=== PATIENT | female | born 1935 | race Caucasian/White ===

== ENCOUNTER 2024-01-03 13:02 | Inpatient (IN) ==
[2024-01-03] MEDS: TORADOL 60 MG VIAL IM ONE (18:13)
[2024-01-03] MEDS: NORCO 7.5/325 MG TAB PO PRN (20:12)
[2024-01-03] MEDS: MOBIC TAB 15 MG PO SCH (20:12)
[2024-01-04 05:40] LABS: BASOPHILS % (AUTO) 0.4 % (0.2-1.0); EOSINOPHILS # (AUTO) 0.1 x10^3/uL (0.0-0.2); EOSINOPHILS % (AUTO) 1.1 % (0.9-2.9); HEMATOCRIT 31.5 % (36.0-47.0); HEMOGLOBIN 10.5 g/dL (12.0-16.0); LYMPHOCYTES # (AUTO) 0.5 X10^3/uL (1.3-2.9); LYMPHOCYTES % (AUTO) 6.3 % (21.0-51.0); MEAN CORPUSCULAR HEMOGLOBIN 28.3 pg (27.0-34.0); MEAN CORPUSCULAR HGB CONC 33.5 g/dL (33.0-35.0); MEAN CORPUSCULAR VOLUME 84.5 fL (80.0-100.0); MEAN PLATELET VOLUME 8.6 fL (7.4-11.0); MONOCYTES # (AUTO) 1.1 x10^3/uL (0.3-0.8); MONOCYTES % (AUTO) 13.4 % (0.0-13.0); NEUTROPHILS # (AUTO) 6.6 x10^3/uL (2.2-4.8); NEUTROPHILS % (AUTO) 78.8 % (42.0-75.0); PLATELET COUNT 136 X10^3/uL (150.0-450.0); RED BLOOD COUNT 3.72 X10^6/uL (3.5-5.4); RED CELL DISTRIBUTION WIDTH 15.9 % (11.6-16.5); WHITE BLOOD COUNT 8.4 X10^3/uL (3.6-10.0)
[2024-01-04 05:41] LABS: ALANINE AMINOTRANSFERASE 23 Units/L (12-78); ALBUMIN 2.3 g/dL (3.4-5.0); ALKALINE PHOSPHATASE 74 Units/L (46-116); ASPARTATE AMINO TRANSFERASE 28 Units/L (15-37); BLOOD UREA NITROGEN 30 mg/dL (7-18); CARBON DIOXIDE 28.5 mmol/L (21-32); CHLORIDE 107 mmol/L (98-107); COR CA(FOR HYPOALB) 10.4 mg/dL (8.5-10.1); CREATININE 1.01 mg/dL (0.55-1.02); GLUCOSE 107 mg/dL (65-99); POTASSIUM 4.4 mmol/L (3.5-5.1); SODIUM 141 mmol/L (136-145); TOTAL PROTEIN 5.8 g/dL (6.4-8.2); eGFR NON BLACK RACES 55 (>60)
[2024-01-04] MEDS: SYNTHROID 75 mcg TAB PO SCH (05:43)
[2024-01-04] MEDS: BENICAR PO SCH (08:54)
[2024-01-04] MEDS: ZyrTEC TAB 10 MG PO SCH (08:55)
[2024-01-04] MEDS: HYDROCHLOROTHIAZIDE 25 MG TAB PO SCH (08:55)
[2024-01-04] MEDS: LIPITOR TAB 10 MG PO SCH (08:55)
[2024-01-04] MEDS: TOPROL XL PO SCH (08:55)
[2024-01-04] MEDS: TOPROL XL PO ONE (12:37)
[2024-01-04] MEDS: MIACALCIN NASAL SPRAY NAS SCH (16:44)
[2024-01-05 04:58] LABS: BASOPHILS % (AUTO) 0.3 % (0.2-1.0); EOSINOPHILS # (AUTO) 0.1 x10^3/uL (0.0-0.2); EOSINOPHILS % (AUTO) 1.4 % (0.9-2.9); HEMATOCRIT 33.1 % (36.0-47.0); LYMPHOCYTES # (AUTO) 0.5 X10^3/uL (1.3-2.9); LYMPHOCYTES % (AUTO) 7.1 % (21.0-51.0); MEAN CORPUSCULAR HEMOGLOBIN 28.4 pg (27.0-34.0); MEAN CORPUSCULAR HGB CONC 33.4 g/dL (33.0-35.0); MEAN PLATELET VOLUME 8.1 fL (7.4-11.0); MONOCYTES % (AUTO) 12.8 % (0.0-13.0); NEUTROPHILS # (AUTO) 5.9 x10^3/uL (2.2-4.8); NEUTROPHILS % (AUTO) 78.4 % (42.0-75.0); PLATELET COUNT 146 X10^3/uL (150.0-450.0); RED BLOOD COUNT 3.89 X10^6/uL (3.5-5.4); RED CELL DISTRIBUTION WIDTH 15.7 % (11.6-16.5); WHITE BLOOD COUNT 7.6 X10^3/uL (3.6-10.0)
[2024-01-05 05:08] LABS: ALANINE AMINOTRANSFERASE 31 Units/L (12-78); ALBUMIN 2.5 g/dL (3.4-5.0); ALKALINE PHOSPHATASE 75 Units/L (46-116); ASPARTATE AMINO TRANSFERASE 31 Units/L (15-37); BLOOD UREA NITROGEN 25 mg/dL (7-18); CALCIUM 8.9 mg/dL (8.5-10.1); CARBON DIOXIDE 30.9 mmol/L (21-32); CHLORIDE 104 mmol/L (98-107); COR CA(FOR HYPOALB) 10.1 mg/dL (8.5-10.1); GLUCOSE 108 mg/dL (65-99); POTASSIUM 3.8 mmol/L (3.5-5.1); SODIUM 141 mmol/L (136-145); TOTAL PROTEIN 6.3 g/dL (6.4-8.2); eGFR NON BLACK RACES > 60 (>60)
[2024-01-05] MEDS ORDERED: CONSULT PHARMACY - POTASSIUM & MAGNESIUM XX SCH (06:00)
[2024-01-05] MEDS: K-DUR TAB 20 MEQ PO SCH (09:13)
[2024-01-05] MEDS: TOPROL XL PO SCH (09:14)
[2024-01-05] MEDS: MAG-OX TAB PO SCH (09:14)
[2024-01-05] MEDS: COLACE CAP 100 MG PO SCH (10:59)
[2024-01-05] MEDS: LINZESS PO ONE (12:41)
[2024-01-05] MEDS: COLACE CAP 100 MG PO ONE (12:41)
[2024-01-05 18:32] VITALS: BMI 22.6
[2024-01-06 05:54] LABS: BASOPHILS # (AUTO) 0.1 X10^3/uL (0.0-0.1); BASOPHILS % (AUTO) 0.8 % (0.2-1.0); EOSINOPHILS # (AUTO) 0.1 x10^3/uL (0.0-0.2); HEMOGLOBIN 9.7 g/dL (12.0-16.0); LYMPHOCYTES # (AUTO) 0.8 X10^3/uL (1.3-2.9); LYMPHOCYTES % (AUTO) 11.7 % (21.0-51.0); MEAN CORPUSCULAR HEMOGLOBIN 28.4 pg (27.0-34.0); MEAN CORPUSCULAR HGB CONC 33.5 g/dL (33.0-35.0); MEAN CORPUSCULAR VOLUME 84.9 fL (80.0-100.0); MEAN PLATELET VOLUME 8.2 fL (7.4-11.0); MONOCYTES # (AUTO) 0.9 x10^3/uL (0.3-0.8); MONOCYTES % (AUTO) 13.2 % (0.0-13.0); NEUTROPHILS % (AUTO) 72.3 % (42.0-75.0); PLATELET COUNT 139 X10^3/uL (150.0-450.0); RED BLOOD COUNT 3.42 X10^6/uL (3.5-5.4); RED CELL DISTRIBUTION WIDTH 15.5 % (11.6-16.5)
[2024-01-06 06:10] LABS: ALANINE AMINOTRANSFERASE 23 Units/L (12-78); ALBUMIN 2.1 g/dL (3.4-5.0); ALKALINE PHOSPHATASE 65 Units/L (46-116); ASPARTATE AMINO TRANSFERASE 29 Units/L (15-37); BLOOD UREA NITROGEN 28 mg/dL (7-18); CALCIUM 8.3 mg/dL (8.5-10.1); CHLORIDE 106 mmol/L (98-107); COR CA(FOR HYPOALB) 9.8 mg/dL (8.5-10.1); CREATININE 0.84 mg/dL (0.55-1.02); GLUCOSE 102 mg/dL (65-99); MAGNESIUM 2.3 mg/dL (2.0-2.9); POTASSIUM 4.4 mmol/L (3.5-5.1); SODIUM 141 mmol/L (136-145); TOTAL PROTEIN 5.6 g/dL (6.4-8.2); eGFR NON BLACK RACES > 60 (>60)
[2024-01-06 08:28] VITALS: BP 146/67; PULSE 80; TEMP 97.4; O2SAT 92
[2024-01-06] MEDS: MIRALAX POWDER (1 DOSE 17 G) PO ONE (09:02)
[2024-01-06] MEDS ORDERED: MIRALAX POWDER (1 DOSE 17 G) PO SCH (10:00)
[2024-01-06] MEDS ORDERED: LOVENOX INJ 40 MG SYR SC SCH (10:00)
[2024-01-06 18:18] VITALS: RESP 17
== END 2024-01-06 09:59 | disposition swing bed (61) | DRG 566 ==
LOC: MED/SURG 16:34
PROVIDERS: ADMIT Obstetrics & Gynecology Obstetrics; ATTEND Obstetrics & Gynecology Obstetrics

== ENCOUNTER 2024-01-06 10:00 | Inpatient (IN) ==
--- NOTE | 2024-01-06 15:59 | PT/OTEVAL ---
PT/OT OBJECTIVES - HISTORY Prescription: OT Consult Diagnosis: Swingbed compression fx, weakness Precautions: Fall risk, Pain PMH: Arthritis, Hypertension, Hypothyroidism and Kidney Stones Prior Level of Function: Independent Other: Per pt report, with family present, She lives with her grandson in a 1 story home. She has 2 steps into the home without a handrail. (I) with ADLs and IADLs. DME includes a RW and a BSC. History of Present Illness: Per documentation, Pt is a 88 year old female who was walking towards door and hit her head on the edge of the door just TRAVEL ATTENDANTS. Family states that she tripped and fell forward and hit her head on the edge of the door. She sustained a laceration to the frontal region of her head. CT showed T2-T4 compression fx 10% T-2-3 and 50% T4. Pt c/o severe pain between shoulder blades and when breathing. Family requested for her to be transferred to [facility] in [place]. Pt is now back here at [facility] for swingbed program. She would greatly benefit from skilled OT to imrpove (I) and safety needed for safe d/c planning. - COGNITION Mental Status: Alert, Oriented, Name, Place, Purpose Communication Status: Verbal Ability to Follow Directions: 2 Step Memory Loss: None Affect: Calm - PAIN Back Pain Scale: Moderate - TRANSFERS Sit to Stand: Minimal Sit to Stand Comment: VC for safety and hand placement. Sit or Stand Pivot: Supervision, Minimal Sit or Stand Pivot Comment: Touch A for safety Toileting: Minimal Safety (requires cues for:): Hand Placement Precaution - ADL'S Grooming: Supervision Toileting: Minimum - BALANCE Dynamic Sitting: Good Standing: Poor Balance Comment: Needs UE support Static Sitting: Good Standing: Fair - NEUROMOTOR/SENSATION Saeid. Upper Ext Sensation: WFL Coordination: WFL - HAND DOMINANCE Extremity Function: Hand Dominance: Right - ROM Bilateral UE ROM: WFL - STRENGTH Bilateral UE Strength Number: 3 - GAIT Pt. ambulates how many feet?: 200 Amount of assistance required: Minimal Amount of Assistance Required: Minimal Type of Assistive Device: Rolling Walker - TREATMENT Date: 01/06/24 Time: 12:20 Treatment Type: Evaluation Treatment Provided: Therapeutic Activities, Other - TOTAL TREATMENT TIME Total Time: 95 - POST ASSESSMENT Post Assessment Comment: Pt was seen for skilled OT to assess CLOF. PLOF was given by pt and family member. First attempt to see pt she was very groggy from pain meds. When therapist came back, pt was up in recliner with feet elevated. Pt agreeable to participate with skilled OT. Pt used a RW and functionally AMB ~ 200 feet with several standing rest breaks. Pt given seated Rb after AMB. Pt the functionally AMB to restroom and used commode with min A. Pt AMB back to recliner. Agreed to stand up and brush her teeth. Pt given touch A for activity. Pt fatigues easily and has pain in her back which is limiting her ability to perform activities. Pt would benefit from skilled OT to improve (I) and safety needed for ADL self care skills. - EXIT DISPOSITION Exit Position: CHAIR Call light in reach: Yes PT/OT ASSESSMENT - PT Problem List: Other - OT Problem List: Decreased Mobility ADL's, Decreased Safety Aware, Decreased Dressing, Decreased Bathing, Decreased Grooming, Decreased UE Strength - OT GOALS Collision Technician Goals Days: 20 Mobility for ADL's: Pt to functionally AMB to restroom with LRAD and set up A. Safety Awareness: Pt to improve safety with back precautions to G Dressing: Pt to improve LB dressing to set up A Bathing: Pt to improve bathing to set up A Grooming: Pt to improve grooming to (I) Upper Ext. Strength/Use: Pt to improve BUE MMT to 5/5 Other: Pt to improve (I) with simple IADL tasks to set up A ie, bed making, dishes Short Term Goals Days: 5 Mobility for ADL's: Pt to functionally AMB to restroom with LRAD and supv A. Safety Awareness: Pt to improve safety with hand placement for functional transfers to G Dressing: Pt to improve UB dressing to (I) Bathing: Pt to improve bathing to supv A Grooming: - Upper Ext. Strength/Use: Pt to improve BUE MMT to 4/5 - PATIENT GOALS Patient/Family Goals: To go home Goals Discussed with Patient/Family: Yes Rehabilitation Potential: Good to meet stated goals Justification for Potential: To facilitate highest level of ADL function needed for safe d/c planning. Weakness and Barriers: Pain - PLAN Suggested Treatment Plan: Therapeutic Activity, Self Care Training, Neuro Re- education, Therapeutic Ex with HEP, Home Management, Patient Education - FREQUENCY AND DURATION PT: - OT: 5x a week x 20 days Expected Continuation of Care at Discharge: Home, Home Health
--- NOTE | 2024-01-06 16:52 | PT/OTEVAL ---
PT/OT OBJECTIVES - HISTORY Prescription: PT Consult Diagnosis: T2-T4 Compression Fractures, Facial Lacerations, Fall Precautions: Back/Spinal, Fall PMH: Arthritis, Hypertension, Hypothyroidism, Kidney Stones, Hysterectomy Prior Level of Function: Independent Other: Per patient report & confirmed by family. Pt resides at home in single story home with 2 steps to enter (no handrail) and has a grandson who stays with her but not consistently. PLOF: Independent within home and community with SPC/walking stick as needed. DME: PAOLO SOTO History of Present Illness: Ms. Núñez is an 88 year old female who sustained a fall at home on 01/02/2024 and had facial and scalp lacerations and T2-T4 compression fractures (10% at T2 and T3 and 50% at T4) and due to complexity of injury was Air Evac to [facility] in [place]. Pt was treated in the ER and then sent back to [facility] for further management of intractable back pain. Pt was stabilized medically and transitioned to swing bed admission on 01/06/2024. - COGNITION Mental Status: Alert, Oriented, Name, Date, Place, Purpose Communication Status: Verbal Ability to Follow Directions: 2 Step Affect: Calm - PAIN Back Pain Scale: Mild Comments: "It's not so bad after taking my medicine" - BED MOBILITY Rolling: Minimal - TRANSFERS Supine to Sit: Minimal Sit to Stand: Minimal Sit or Stand Pivot: Minimal Safety (requires cues for:): Hand Placement Precaution - BALANCE Dynamic Sitting: Good Standing: Poor Static Sitting: Good Standing: Fair - NEUROMOTOR/SENSATION Saeid. Lower Ext Sensation: WFL Coordination: WFL Proprioception: WFL - HAND DOMINANCE Extremity Function: Hand Dominance: Right - ROM Bilateral LE ROM: WFL Muscle Tone: WFL - STRENGTH Bilateral LE Strength Number: 3 Other comment: B Proximal Hips: 3/5; B Knees and Ankles: 3+/5 - GAIT Pt. ambulates how many feet?: 150 Amount of Assistance Required: Minimal Type of Assistive Device: Rolling Walker Comments: Frequent standing therapeutic rest breaks - TREATMENT Date: 01/06/24 Time: 14:00 Treatment Type: Evaluation Treatment Provided: Gait - TOTAL TREATMENT TIME Total Time: 75 - POST ASSESSMENT Post Assessment Comment: PT initially attempted to see patient in the AM for evaluation- however, after taking pain medication pt was very lethargic & unable to fully participate. PT returned later and pt noted to be alert & agreeable to participation in PT services. Pt able to provide history & PLOF information. Reports that she is feeling better. Review of spinal precautions with pt due to acute thoracic compression fractures. Pt required min assist for bed mobility tasks and functional transfers with cues for proper hand placement and facilitation of COM over SHIRAZ. Gait tasks performed indoors on even surfaces with FWW with cues for maintaining close walker approximation and increased step length and step height. Pt did require frequent standing rest breaks and reports she was able to feel some discomfort to upper back but pain is much more controlled that previously. Pt is motivated to participate and would benefit f rom continued PT Services to address remaining deficits and facilitate highest level of function & safe discharge planning. - EXIT DISPOSITION Exit Position: CHAIR Call light in reach: Yes Comments: With OT PT/OT ASSESSMENT - PT Problem List: Decreased Bed Mobility, Decreased Transfers, Decreased Gait, Decreased Balance, Decreased LE Strength, Other - PT GOALS Short Term Goals Days: 10 Mobility: Pt will perform bed mobility tasks with mod I Transfers: Pt will perform functional transfers with mod I Gait: Pt will ambulate 400ft with FWW with supervision Balance: Pt will increase static standing balance to good Custodial Goals Days: 20 Mobility: - Transfers: - Gait: Pt will ambulate 500ft with LRAD with mod I Balance: Pt will increase dynamic standing balance to good ROM/Strength: Pt will increase BLE strength to 5/5 Others: Pt will ascend/descend 2 stairs with mod I - OT GOALS Hospice Registered Nurse Goals Days: 20 Mobility for ADL's: Pt to functionally AMB to restroom with LRAD and set up A. Safety Awareness: Pt to improve safety with back precautions to G Dressing: Pt to improve LB dressing to set up A Bathing: Pt to improve bathing to set up A Grooming: Pt to improve grooming to (I) Upper Ext. Strength/Use: Pt to improve BUE MMT to 5/5 Other: Pt to improve (I) with simple IADL tasks to set up A ie, bed making, dishes Short Term Goals Days: 5 Mobility for ADL's: Pt to functionally AMB to restroom with LRAD and supv A. Safety Awareness: Pt to improve safety with hand placement for functional transfers to G Dressing: Pt to improve UB dressing to (I) Bathing: Pt to improve bathing to supv A Grooming: - Upper Ext. Strength/Use: Pt to improve BUE MMT to 4/5 - PATIENT GOALS Patient/Family Goals: "I want to get better so I can go back home" Goals Discussed with Patient/Family: Yes Rehabilitation Potential: Good to meet stated goals Justification for Potential: Facilitate highest level of function and safe discharge planning Weakness and Barriers: Pain - PLAN Suggested Treatment Plan: Bed Mobility Training, Therapeutic Activity, Gait Training, Neuro Re-education, Therapeutic Ex with HEP, Patient Education, Other Other comment: Manual Therapy - FREQUENCY AND DURATION PT: 5-6x per week x 20 days Expected Continuation of Care at Discharge: Outpatient Therapy, Home Health, Determined on Progress
[2024-01-06] MEDS: NORCO 7.5/325 MG TAB PO PRN (20:29)
[2024-01-06] MEDS: COLACE CAP 100 MG PO SCH (20:29)
[2024-01-06] MEDS: MOBIC TAB 15 MG PO SCH (20:29)
[2024-01-07] MEDS: SYNTHROID 75 mcg TAB PO SCH (05:38)
[2024-01-07] MEDS: TOPROL XL PO SCH (08:42)
[2024-01-07] MEDS: HYDROCHLOROTHIAZIDE 25 MG TAB PO SCH (08:42)
[2024-01-07] MEDS: ZyrTEC TAB 10 MG PO SCH (08:42)
[2024-01-07] MEDS: BENICAR PO SCH (08:42)
[2024-01-07] MEDS: LOVENOX INJ 40 MG SYR SC SCH (08:43)
[2024-01-07] MEDS: MIACALCIN NASAL SPRAY NAS SCH (08:43)
[2024-01-07] MEDS: MIRALAX POWDER (1 DOSE 17 G) PO SCH (08:43)
[2024-01-07 15:25] VITALS: BMI 22.6
[2024-01-08 05:35] LABS: LYMPHOCYTES # (AUTO) 0.8 X10^3/uL (1.3-2.9); MONOCYTES # (AUTO) 0.8 x10^3/uL (0.3-0.8)
[2024-01-08 05:42] LABS: BASOPHILS % (AUTO) 0.8 % (0.2-1.0); EOSINOPHILS # (AUTO) 0.1 x10^3/uL (0.0-0.2); EOSINOPHILS % (AUTO) 2.5 % (0.9-2.9); HEMATOCRIT 30.1 % (36.0-47.0); LYMPHOCYTES % (AUTO) 13.2 % (21.0-51.0); MEAN CORPUSCULAR HEMOGLOBIN 28.3 pg (27.0-34.0); MEAN CORPUSCULAR HGB CONC 33.4 g/dL (33.0-35.0); MEAN CORPUSCULAR VOLUME 84.8 fL (80.0-100.0); MEAN PLATELET VOLUME 8.1 fL (7.4-11.0); MONOCYTES % (AUTO) 13.1 % (0.0-13.0); NEUTROPHILS # (AUTO) 4.1 x10^3/uL (2.2-4.8); NEUTROPHILS % (AUTO) 70.4 % (42.0-75.0); PLATELET COUNT 145 X10^3/uL (150.0-450.0); RED BLOOD COUNT 3.55 X10^6/uL (3.5-5.4); RED CELL DISTRIBUTION WIDTH 15.5 % (11.6-16.5); WHITE BLOOD COUNT 5.8 X10^3/uL (3.6-10.0)
[2024-01-08 05:45] LABS: ALANINE AMINOTRANSFERASE 18 Units/L (12-78); ALBUMIN 2.2 g/dL (3.4-5.0); ALKALINE PHOSPHATASE 71 Units/L (46-116); ASPARTATE AMINO TRANSFERASE 17 Units/L (15-37); BLOOD UREA NITROGEN 31 mg/dL (7-18); CALCIUM 8.7 mg/dL (8.5-10.1); CARBON DIOXIDE 28.7 mmol/L (21-32); CHLORIDE 105 mmol/L (98-107); COR CA(FOR HYPOALB) 10.1 mg/dL (8.5-10.1); CREATININE 0.94 mg/dL (0.55-1.02); GLUCOSE 95 mg/dL (65-99); POTASSIUM 4.3 mmol/L (3.5-5.1); SODIUM 139 mmol/L (136-145); TOTAL PROTEIN 5.8 g/dL (6.4-8.2); eGFR NON BLACK RACES 60 (>60)
[2024-01-08] MEDS: LINZESS PO SCH (11:17)
[2024-01-09] MEDS: TORADOL 30 MG VIAL IVP PRN (10:37)
[2024-01-10] MEDS ORDERED: PHENERGAN SYRUP PLAIN 6.25MG/5ML PO PRN (09:06)
[2024-01-10] MEDS: RHINOCORT ALLERGY NASAL SPRAY ENOSTRIL SCH (10:00)
[2024-01-11 05:26] LABS: BASOPHILS % (AUTO) 0.4 % (0.2-1.0); EOSINOPHILS # (AUTO) 0.1 x10^3/uL (0.0-0.2); EOSINOPHILS % (AUTO) 2.3 % (0.9-2.9); HEMATOCRIT 30.1 % (36.0-47.0); HEMOGLOBIN 10.1 g/dL (12.0-16.0); LYMPHOCYTES % (AUTO) 16.8 % (21.0-51.0); MEAN CORPUSCULAR HEMOGLOBIN 28.2 pg (27.0-34.0); MEAN CORPUSCULAR HGB CONC 33.4 g/dL (33.0-35.0); MEAN CORPUSCULAR VOLUME 84.4 fL (80.0-100.0); MONOCYTES # (AUTO) 0.8 x10^3/uL (0.3-0.8); MONOCYTES % (AUTO) 13.2 % (0.0-13.0); NEUTROPHILS # (AUTO) 3.9 x10^3/uL (2.2-4.8); NEUTROPHILS % (AUTO) 67.3 % (42.0-75.0); PLATELET COUNT 175 X10^3/uL (150.0-450.0); RED BLOOD COUNT 3.57 X10^6/uL (3.5-5.4); RED CELL DISTRIBUTION WIDTH 15.8 % (11.6-16.5); WHITE BLOOD COUNT 5.8 X10^3/uL (3.6-10.0)
[2024-01-11 05:44] LABS: ALANINE AMINOTRANSFERASE 17 Units/L (12-78); ALBUMIN 2.2 g/dL (3.4-5.0); ALKALINE PHOSPHATASE 85 Units/L (46-116); ASPARTATE AMINO TRANSFERASE 17 Units/L (15-37); BLOOD UREA NITROGEN 33 mg/dL (7-18); CALCIUM 8.7 mg/dL (8.5-10.1); CARBON DIOXIDE 27.6 mmol/L (21-32); CHLORIDE 105 mmol/L (98-107); COR CA(FOR HYPOALB) 10.1 mg/dL (8.5-10.1); CREATININE 0.93 mg/dL (0.55-1.02); GLUCOSE 87 mg/dL (65-99); POTASSIUM 4.1 mmol/L (3.5-5.1); SODIUM 140 mmol/L (136-145); TOTAL PROTEIN 5.8 g/dL (6.4-8.2); eGFR NON BLACK RACES > 60 (>60)
[2024-01-12] MEDS: RESTORIL CAP 15 MG PO PRN (20:28)
[2024-01-13 05:01] LABS: BASOPHILS % (AUTO) 0.8 % (0.2-1.0); EOSINOPHILS # (AUTO) 0.2 x10^3/uL (0.0-0.2); EOSINOPHILS % (AUTO) 2.9 % (0.9-2.9); HEMATOCRIT 30.6 % (36.0-47.0); HEMOGLOBIN 10.3 g/dL (12.0-16.0); LYMPHOCYTES # (AUTO) 1.1 X10^3/uL (1.3-2.9); LYMPHOCYTES % (AUTO) 19.4 % (21.0-51.0); MEAN CORPUSCULAR HEMOGLOBIN 28.3 pg (27.0-34.0); MEAN CORPUSCULAR HGB CONC 33.5 g/dL (33.0-35.0); MEAN CORPUSCULAR VOLUME 84.3 fL (80.0-100.0); MEAN PLATELET VOLUME 7.7 fL (7.4-11.0); MONOCYTES # (AUTO) 0.7 x10^3/uL (0.3-0.8); MONOCYTES % (AUTO) 13.6 % (0.0-13.0); NEUTROPHILS # (AUTO) 3.5 x10^3/uL (2.2-4.8); NEUTROPHILS % (AUTO) 63.3 % (42.0-75.0); PLATELET COUNT 212 X10^3/uL (150.0-450.0); RED BLOOD COUNT 3.64 X10^6/uL (3.5-5.4); RED CELL DISTRIBUTION WIDTH 15.7 % (11.6-16.5); WHITE BLOOD COUNT 5.5 X10^3/uL (3.6-10.0)
[2024-01-13 05:12] LABS: ALANINE AMINOTRANSFERASE 16 Units/L (12-78); ALBUMIN 2.2 g/dL (3.4-5.0); ALKALINE PHOSPHATASE 101 Units/L (46-116); ASPARTATE AMINO TRANSFERASE 17 Units/L (15-37); BLOOD UREA NITROGEN 27 mg/dL (7-18); CALCIUM 8.7 mg/dL (8.5-10.1); CARBON DIOXIDE 26.2 mmol/L (21-32); CHLORIDE 105 mmol/L (98-107); COR CA(FOR HYPOALB) 10.1 mg/dL (8.5-10.1); CREATININE 0.97 mg/dL (0.55-1.02); GLUCOSE 88 mg/dL (65-99); POTASSIUM 3.8 mmol/L (3.5-5.1); SODIUM 140 mmol/L (136-145); TOTAL PROTEIN 5.8 g/dL (6.4-8.2); eGFR NON BLACK RACES 58 (>60)
[2024-01-15 06:19] LABS: ALANINE AMINOTRANSFERASE 16 Units/L (12-78); ALBUMIN 2.3 g/dL (3.4-5.0); ALKALINE PHOSPHATASE 120 Units/L (46-116); ASPARTATE AMINO TRANSFERASE 18 Units/L (15-37); BLOOD UREA NITROGEN 32 mg/dL (7-18); CALCIUM 8.5 mg/dL (8.5-10.1); CARBON DIOXIDE 25.5 mmol/L (21-32); CHLORIDE 105 mmol/L (98-107); COR CA(FOR HYPOALB) 9.9 mg/dL (8.5-10.1); CREATININE 1.04 mg/dL (0.55-1.02); GLUCOSE 91 mg/dL (65-99); MAGNESIUM 1.7 mg/dL (2.0-2.9); POTASSIUM 3.7 mmol/L (3.5-5.1); SODIUM 138 mmol/L (136-145); TOTAL PROTEIN 5.8 g/dL (6.4-8.2); eGFR NON BLACK RACES 53 (>60)
[2024-01-15 06:28] LABS: BASOPHILS % (AUTO) 0.6 % (0.2-1.0); EOSINOPHILS # (AUTO) 0.1 x10^3/uL (0.0-0.2); HEMATOCRIT 29.6 % (36.0-47.0); HEMOGLOBIN 9.9 g/dL (12.0-16.0); LYMPHOCYTES # (AUTO) 1.5 X10^3/uL (1.3-2.9); LYMPHOCYTES % (AUTO) 25.2 % (21.0-51.0); MEAN CORPUSCULAR HEMOGLOBIN 28.5 pg (27.0-34.0); MEAN CORPUSCULAR HGB CONC 33.6 g/dL (33.0-35.0); MEAN CORPUSCULAR VOLUME 84.7 fL (80.0-100.0); MONOCYTES # (AUTO) 0.8 x10^3/uL (0.3-0.8); NEUTROPHILS # (AUTO) 3.4 x10^3/uL (2.2-4.8); NEUTROPHILS % (AUTO) 59.2 % (42.0-75.0); PLATELET COUNT 219 X10^3/uL (150.0-450.0); RED BLOOD COUNT 3.49 X10^6/uL (3.5-5.4); RED CELL DISTRIBUTION WIDTH 15.3 % (11.6-16.5); WHITE BLOOD COUNT 5.8 X10^3/uL (3.6-10.0)
[2024-01-15] MEDS ORDERED: CONSULT PHARMACY - POTASSIUM & MAGNESIUM XX SCH (07:00)
[2024-01-15] MEDS: K-DUR TAB 20 MEQ PO SCH (09:13)
[2024-01-15] MEDS: MAG-OX TAB PO SCH (09:14)
[2024-01-15] MEDS: LINZESS PO SCH (09:14)
[2024-01-17] MEDS ORDERED: CONSULT PHARMACY - POTASSIUM & MAGNESIUM XX SCH (08:00)
[2024-01-17 08:22] VITALS: BP 139/65; PULSE 66; RESP 18; TEMP 97.6; O2SAT 94
== END 2024-01-17 15:55 | disposition home health service (06) | DRG 566 ==
LOC: MED/SURG 10:00
PROVIDERS: ADMIT Obstetrics & Gynecology Obstetrics; ATTEND Obstetrics & Gynecology Obstetrics
DX: Z47.89 Encounter for other orthopedic aftercare; W18.39XA Other fall on same level, initial encounter; R53.1 Weakness; M54.89 Other dorsalgia; S22.9XXA Fracture of bony thorax, part unspecified, initial encounter for closed fracture

== ENCOUNTER 2024-04-02 17:26 | Inpatient (IN) ==
--- NOTE | 2024-04-02 17:44 | DR.EXTPAIN ---
HPI <Alessio Cardenas Last Filed: 04/07/24 08:04> Time seen Time Seen by Provider: 04/02/24 17:44 Complaint/Symptoms Chief Complaint Doctor Comments: 88-year-old female brought in for evaluation. Patient had a significant fall 3 months ago, had compression fractures of the edwin mbar spine. Per family has not been quite right since. She was visiting family, family member found her on the floor this morning at 4:30 AM. She had fallen, hit the back of her head. Patient has persistent headache at the back of her head, with a small swollen area/hematoma. No report of nausea, vomiting, visual changes. She denies neck pain. She has ambulated since the fall. Having some left-sided sciatica pain. Per family patient has been a bit more agitated and confused today. No report of fever, chills, URI symptoms, bowel or bladder issues. Family discussed with her covering provider, Ms. Rebolledo, feel that she may be well served with a shelter admission. Nurses notes reviewed Nurses Notes Review: Yes Source History Provided: Patient and Family Member PMH <Alessio Cardenas Last Filed: 04/07/24 08:04> PMH Past Medical History: Arthritis, Hypertension, Hypothyroidism and Kidney Stones Past Surgical History: Yes Surgical History: ORACLE APPLICATION ARCHITECT Surgery and Other Family History Family Medical History: Hypertension Social History Does patient currently use any type of tobacco product: No Alcohol Use: None Do you use any recreational Drugs:: No ROS <Alessio Cardenas Last Filed: 04/07/24 08:04> Review of Systems Constitutional: Weakness Eyes: No Symptoms Reported ENTM: No Symptoms Reported Respiratoy: No Symptoms Reported Cardiovascular: No Symptoms Reported Gastrointestinal/Abdominal: No Symptoms Reported Genitourinary: No Symptoms Reported Neurological: Headache and Weakness Musculoskeletal: Back Pain Integumentary: No Symptoms Reported Hematologic/Lymphatic: No Symptoms Reported All Other Systems: Reviewed and Negative PE <Alessio Cardenas Filed: 04/07/24 08:04> Vital Signs Vitals: Vital Signs Temperature 98.2 F Pulse Rate [Left] 75 Pulse Rate 78 Pulse Rate 70 Pulse Rate 71 Pulse Rate 73 Pulse Rate 74 Pulse Rate 70 Pulse Rate 72 Pulse Rate 73 Pulse Rate 72 Pulse Rate 69 Pulse Rate 74 Pulse Rate 74 Pulse Rate 78 Respiratory Rate 15 Respiratory Rate 12 Blood Pressure 184/74 Blood Pressure 167/70 Blood Pressure 140/64 Blood Pressure 141/62 Blood Pressure 133/60 Blood Pressure 141/65 O2 Sat by Pulse Oximetry 98 O2 Sat by Pulse Oximetry 99 O2 Sat by Pulse Oximetry 98 O2 Sat by Pulse Oximetry 98 O2 Sat by Pulse Oximetry 99 O2 Sat by Pulse Oximetry 99 O2 Sat by Pulse Oximetry 100 O2 Sat by Pulse Oximetry 97 O2 Sat by Pulse Oximetry 97 O2 Sat by Pulse Oximetry 97 O2 Sat by Pulse Oximetry 96 O2 Sat by Pulse Oximetry 99 O2 Sat by Pulse Oximetry 97 O2 Sat by Pulse Oximetry 97 General General Appearance: Alert and In No Apparent Distress Head Head Exam: Other (+ small occipital hematoma, with tenderness. No bleeding.) Eyes Eye exam: PERRL and EOMI ENT ENT Exam: Normal Oropharynx and Mucous Membranes Moist Neck Neck Exam: Normal Inspection Chest Chest Inspection: Normal Inspection Respiratory Respiratory Exam: Normal Lung Sounds Bilat; negative Accessory Muscle Use or Respiratory Distress Cardiovascular Cardiovascular Exam: Regular Rate, Normal Rhythm and Normal Heart Sounds Abdominal Exam Abdominal Exam: Normal Bowel Sounds and Soft; negative Tenderness Extremities Extremities Exam: Normal Inspection and Edema (1-2+, bilateral lower exts) Lower Extremities Hip/Pelvis Exam: Tenderness (L pelvis illiac creast) Back Back Exam: Normal Inspection Neurological Neurological Exam: Alert, Oriented X3 and CN II-XII Intact; negative Motor Sensory Deficit Skin Skin Exam: Warm and Dry <Keysha Wilkinson - Last Filed: 04/02/24 21:17> Vital Signs Vitals: Vital Signs Temperature 98.2 F Pulse Rate [Left] 75 Pulse Rate 78 Pulse Rate 70 Pulse Rate 71 Pulse Rate 73 Pulse Rate 74 Pulse Rate 70 Pulse Rate 72 Pulse Rate 73 Pulse Rate 72 Pulse Rate 69 Pulse Rate 74 Pulse Rate 74 Pulse Rate 78 Respiratory Rate 15 Respiratory Rate 12 Blood Pressure 184/74 Blood Pressure 167/70 Blood Pressure 140/64 Blood Pressure 141/62 Blood Pressure 133/60 Blood Pressure 141/65 O2 Sat by Pulse Oximetry 98 O2 Sat by Pulse Oximetry 99 O2 Sat by Pulse Oximetry 98 O2 Sat by Pulse Oximetry 98 O2 Sat by Pulse Oximetry 99 O2 Sat by Pulse Oximetry 99 O2 Sat by Pulse Oximetry 100 O2 Sat by Pulse Oximetry 97 O2 Sat by Pulse Oximetry 97 O2 Sat by Pulse Oximetry 97 O2 Sat by Pulse Oximetry 96 O2 Sat by Pulse Oximetry 99 O2 Sat by Pulse Oximetry 97 O2 Sat by Pulse Oximetry 97 Respiratory Respiratory Exam: Bilateral: Clear to Auscultation <Keysha Wilkinson - Last Filed: 04/02/24 21:17> Differential Diagnosis Differential Diagnosis: Fracture and Other (Blunt Head trauma,C-spine I njury,Pneumonia,UTI,electrolyte disorder) COURSE <Alessio Cardenas - Last Filed: 04/07/24 08:04> Treatment Treatment: 88-year-old female, fell early this a.m. Has been a little off, little confused since, hit the back of her head. Has a hematoma. Will CT the head, neck and x-ray her chest and pelvis/left hip. Patient given IV fluids, will check baseline labs. 184 -imaging studies unremarkable to me. <Keysha Wilkinson - Last Filed: 04/02/24 21:17> Treatment Treatment: 88-year-old female, fell early this a.m. Has been a little off, little confused since, hit the back of her head. Has a hematoma. Will CT the head, neck and x-ray her chest and pelvis/left hip. Patient given IV fluids, will check baseline labs. 184 -imaging studies unremarkable to me. Patient's Head CT w/o contrast and Cervical spine Ct did not reveal an acute process. CXR and Left hip xray did not reveal acute process. Patient labs revealed: K 3.2,Bun 31, creat 1.53,cbc stable.Patient received NS bolus and Rocephin 1 gram iv in the ED. 20:[address] Bach.Dr Bach has accepted the patient to his service for further evaluation. ROR <Alessio Cardenas - Last Filed: 04/07/24 08:04> Labs Reviewed 04/07/24 04:53 04/07/24 04:53 Laboratory: 04/02/24 18:55 Urine,Clean Catch Urine Culture - Final WBC 5.7 X10^3/uL (3.6-10.0) 04/04/24 04:11 RBC 3.63 X10^6/uL (3.5-5.4) 04/04/24 04:11 Hgb 10.3 g/dL (12.0-16.0) L 04/04/24 04:11 Hct 30.8 % (36.0-47.0) L 04/04/24 04:11 MCV 84.7 fL (80.0-100.0) 04/04/24 04:11 MCH 28.3 pg (27.0-34.0) 04/04/24 04:11 MCHC 33.4 g/dL (33.0-35.0) 04/04/24 04:11 RDW 14.5 % (11.6-16.5) 04/04/24 04:11 Plt Count 150 X10^3/uL (150.0-450.0) 04/04/24 04:11 MPV 8.9 fL (7.4-11.0) 04/04/24 04:11 Neut % (Auto) 57.4 % (42.0-75.0) 04/04/24 04:11 Lymph % (Auto) 27.2 % (21.0-51.0) 04/04/24 04:11 Preble % (Auto) 11.8 % (0.0-13.0) 04/04/24 04:11 Eos % (Auto) 2.8 % (0.9-2.9) 04/04/24 04:11 Baso % (Auto) 0.8 % (0.2-1.0) 04/04/24 04:11 Neut # (Auto) 3.3 x10^3/uL (2.2-4.8) 04/04/24 04:11 Lymph # (Auto) 1.6 X10^3/uL (1.3-2.9) 04/04/24 04:11 Preble # (Auto) 0.7 x10^3/uL (0.3-0.8) 04/04/24 04:11 Eos # (Auto) 0.2 x10^3/uL (0.0-0.2) 04/04/24 04:11 Baso # (Auto) 0.0 X10^3/uL (0.0-0.1) 04/04/24 04:11 Absolute Nucleated RBC 0.1 /100WBC 04/04/24 04:11 Sodium 143 mmol/L (136-145) 04/04/24 04:11 Corrected Sodium TNP 04/04/24 04:11 Potassium 3.9 mmol/L (3.5-5.1) 04/04/24 04:11 Chloride 111 mmol/L (98-107) H 04/04/24 04:11 Carbon Dioxide 24.7 mmol/L (21-32) 04/04/24 04:11 BUN 25 mg/dL (7-18) H 04/04/24 04:11 Creatinine 1.08 mg/dL (0.55-1.02) H 04/04/24 04:11 Est GFR (MDRD) Af Amer > 60 (>60) 04/04/24 04:11 Est GFR (MDRD) Non-Af 51 (>60) L 04/04/24 04:11 Glucose 102 mg/dL (65-99) H 04/04/24 04:11 Calcium 8.3 mg/dL (8.5-10.1) L 04/04/24 04:11 Corrected Calcium 9.7 mg/dL (8.5-10.1) 04/04/24 04:11 Magnesium 1.7 mg/dL (2.0-2.9) L 04/03/24 04:51 Total Bilirubin 0.10 mg/dL (0.2-1.0) L 04/04/24 04:11 AST 15 Units/L (15-37) 04/04/24 04:11 ALT 11 Units/L (12-78) L 04/04/24 04:11 Alkaline Phosphatase 54 Units/L (46-116) 04/04/24 04:11 Creatine Kinase 101 Units/L (26-192) 04/02/24 18:00 Total Protein 5.6 g/dL (6.4-8.2) L 04/04/24 04:11 Albumin 2.3 g/dL (3.4-5.0) L 04/04/24 04:11 Globulin 3.3 g/dL (2.5-4.5) 04/04/24 04:11 Albumin/Globulin Ratio 0.7 Ratio (1.1-2.1) L 04/04/24 04:11 Lipase 70 Units/L (16-77) 04/02/24 18:00 Specimen Type Clean catch urine 04/02/24 18:55 Urine Color Yellow (YELLOW) 04/02/24 18:55 Urine Appearance Cloudy (CLEAR) 04/02/24 18:55 Urine pH 6.0 (5.0 - 8.0) 04/02/24 18:55 Ur Specific [place] 1.015 (1.000-1.030) 04/02/24 18:55 Urine Protein 2+ (NEGATIVE) 04/02/24 18:55 Urine Glucose (UA) Negative (NEGATIVE) 04/02/24 18:55 Urine Ketones Negative (NEGATIVE) 04/02/24 18:55 Urine Blood 2+ (NEGATIVE) 04/02/24 18:55 Urine Nitrite Negative (NEGATIVE) 04/02/24 18:55 Urine Bilirubin Negative (NEGATIVE) 04/02/24 18:55 Urine Urobilinogen 1+ (NORMAL) 04/02/24 18:55 Ur Leukocyte Esterase 3+ (NEGATIVE) 04/02/24 18:55 Urine RBC 3-5 /HPF (0-3) A 04/02/24 18:55 Urine WBC Tntc /HPF (0-5) A 04/02/24 18:55 Ur Squamous Epith Cells Numerous /HPF (NEGATIVE) 04/02/24 18:55 Ur Transition Epith Cell Moderate /HPF (NEGATIVE) 04/02/24 18:55 Urine Bacteria 4+ /HPF (NEGATIVE) 04/02/24 18:55 Hyaline Casts Few /LPF (NEGATIVE) 04/02/24 18:55 Ur Culture Indicated? No/not indicated 04/02/24 18:55 <Keysha Wilkinson - Last Filed: 04/02/24 21:17> Labs Reviewed Laboratory: 04/02/24 18:55 Urine,Clean Catch Urine Culture - Final WBC 5.7 X10^3/uL (3.6-10.0) 04/04/24 04:11 RBC 3.63 X10^6/uL (3.5-5.4) 04/04/24 04:11 Hgb 10.3 g/dL (12.0-16.0) L 04/04/24 04:11 Hct 30.8 % (36.0-47.0) L 04/04/24 04:11 MCV 84.7 fL (80.0-100.0) 04/04/24 04:11 MCH 28.3 pg (27.0-34.0) 04/04/24 04:11 MCHC 33.4 g/dL (33.0-35.0) 04/04/24 04:11 RDW 14.5 % (11.6-16.5) 04/04/24 04:11 Plt Count 150 X10^3/uL (150.0-450.0) 04/04/24 04:11 MPV 8.9 fL (7.4-11.0) 04/04/24 04:11 Neut % (Auto) 57.4 % (42.0-75.0) 04/04/24 04:11 Lymph % (Auto) 27.2 % (21.0-51.0) 04/04/24 04:11 Preble % (Auto) 11.8 % (0.0-13.0) 04/04/24 04:11 Eos % (Auto) 2.8 % (0.9-2.9) 04/04/24 04:11 Baso % (Auto) 0.8 % (0.2-1.0) 04/04/24 04:11 Neut # (Auto) 3.3 x10^3/uL (2.2-4.8) 04/04/24 04:11 Lymph # (Auto) 1.6 X10^3/uL (1.3-2.9) 04/04/24 04:11 Preble # (Auto) 0.7 x10^3/uL (0.3-0.8) 04/04/24 04:11 Eos # (Auto) 0.2 x10^3/uL (0.0-0.2) 04/04/24 04:11 Baso # (Auto) 0.0 X10^3/uL (0.0-0.1) 04/04/24 04:11 Absolute Nucleated RBC 0.1 /100WBC 04/04/24 04:11 Sodium 143 mmol/L (136-145) 04/04/24 04:11 Corrected Sodium TNP 04/04/24 04:11 Potassium 3.9 mmol/L (3.5-5.1) 04/04/24 04:11 Chloride 111 mmol/L (98-107) H 04/04/24 04:11 Carbon Dioxide 24.7 mmol/L (21-32) 04/04/24 04:11 BUN 25 mg/dL (7-18) H 04/04/24 04:11 Creatinine 1.08 mg/dL (0.55-1.02) H 04/04/24 04:11 Est GFR (MDRD) Af Amer > 60 (>60) 04/04/24 04:11 Est GFR (MDRD) Non-Af 51 (>60) L 04/04/24 04:11 Glucose 102 mg/dL (65-99) H 04/04/24 04:11 Calcium 8.3 mg/dL (8.5-10.1) L 04/04/24 04:11 Corrected Calcium 9.7 mg/dL (8.5-10.1) 04/04/24 04:11 Magnesium 1.7 mg/dL (2.0-2.9) L 04/03/24 04:51 Total Bilirubin 0.10 mg/dL (0.2-1.0) L 04/04/24 04:11 AST 15 Units/L (15-37) 04/04/24 04:11 ALT 11 Units/L (12-78) L 04/04/24 04:11 Alkaline Phosphatase 54 Units/L (46-116) 04/04/24 04:11 Creatine Kinase 101 Units/L (26-192) 04/02/24 18:00 Total Protein 5.6 g/dL (6.4-8.2) L 04/04/24 04:11 Albumin 2.3 g/dL (3.4-5.0) L 04/04/24 04:11 Globulin 3.3 g/dL (2.5-4.5) 04/04/24 04:11 Albumin/Globulin Ratio 0.7 Ratio (1.1-2.1) L 04/04/24 04:11 Lipase 70 Units/L (16-77) 04/02/24 18:00 Specimen Type Clean catch urine 04/02/24 18:55 Urine Color Yellow (YELLOW) 04/02/24 18:55 Urine Appearance Cloudy (CLEAR) 04/02/24 18:55 Urine pH 6.0 (5.0 - 8.0) 04/02/24 18:55 Ur Specific [place] 1.015 (1.000-1.030) 04/02/24 18:55 Urine Protein 2+ (NEGATIVE) 04/02/24 18:55 Urine Glucose (UA) Negative (NEGATIVE) 04/02/24 18:55 Urine Ketones Negative (NEGATIVE) 04/02/24 18:55 Urine Blood 2+ (NEGATIVE) 04/02/24 18:55 Urine Nitrite Negative (NEGATIVE) 04/02/24 18:55 Urine Bilirubin Negative (NEGATIVE) 04/02/24 18:55 Urine Urobilinogen 1+ (NORMAL) 04/02/24 18:55 Ur Leukocyte Esterase 3+ (NEGATIVE) 04/02/24 18:55 Urine RBC 3-5 /HPF (0-3) A 04/02/24 18:55 Urine WBC Tntc /HPF (0-5) A 04/02/24 18:55 Ur Squamous Epith Cells Numerous /HPF (NEGATIVE) 04/02/24 18:55 Ur Transition Epith Cell Moderate /HPF (NEGATIVE) 04/02/24 18:55 Urine Bacteria 4+ /HPF (NEGATIVE) 04/02/24 18:55 Hyaline Casts Few /LPF (NEGATIVE) 04/02/24 18:55 Ur Culture Indicated? No/not indicated 04/02/24 18:55 Opioid <Alessio Cardenas - Last Filed: 04/07/24 08:04> Opioid Risk Tool Age (Oliver box if 16-45): No History of Preadolescent Sexual Abuse: No Total: 0 Total Score Risk Category: Low Risk Copyright: Andrew MARY predicting aberrant behaviors <Keysha Wilkinson - Last Filed: 04/02/24 21:17> Opioid Risk Tool Total: 0 Total Score Risk Category: Low Risk Discharge Plan Diagnosis Discharge Problem: Urinary tract infection, ANDREW (acute kidney injury) Discharge Plan Patient Disposition: 09 ADMITTED INPATIENT Condition: Stable
[2024-04-02 18:07] LABS: HEMOGLOBIN 11.6 g/dL (12.0-16.0); WHITE BLOOD COUNT 9.9 X10^3/uL (3.6-10.0)
[2024-04-02] MEDS: NS 500 ML IV 500 ML IV ONE ×2 (18:07→23:11)
[2024-04-02 18:10] LABS: BASOPHILS % (AUTO) 0.3 % (0.2-1.0); EOSINOPHILS # (AUTO) 0.1 x10^3/uL (0.0-0.2); EOSINOPHILS % (AUTO) 0.8 % (0.9-2.9); HEMATOCRIT 34.6 % (36.0-47.0); LYMPHOCYTES # (AUTO) 1.3 X10^3/uL (1.3-2.9); LYMPHOCYTES % (AUTO) 13.4 % (21.0-51.0); MEAN CORPUSCULAR HEMOGLOBIN 28.5 pg (27.0-34.0); MEAN CORPUSCULAR HGB CONC 33.6 g/dL (33.0-35.0); MEAN CORPUSCULAR VOLUME 84.7 fL (80.0-100.0); MEAN PLATELET VOLUME 8.6 fL (7.4-11.0); MONOCYTES # (AUTO) 1.1 x10^3/uL (0.3-0.8); MONOCYTES % (AUTO) 11.2 % (0.0-13.0); NEUTROPHILS # (AUTO) 7.3 x10^3/uL (2.2-4.8); NEUTROPHILS % (AUTO) 74.3 % (42.0-75.0); PLATELET COUNT 165 X10^3/uL (150.0-450.0); RED BLOOD COUNT 4.08 X10^6/uL (3.5-5.4); RED CELL DISTRIBUTION WIDTH 14.5 % (11.6-16.5)
[2024-04-02 18:19] LABS: ALANINE AMINOTRANSFERASE 16 Units/L (12-78); ALBUMIN 2.9 g/dL (3.4-5.0); ALKALINE PHOSPHATASE 68 Units/L (46-116); ASPARTATE AMINO TRANSFERASE 20 Units/L (15-37); BLOOD UREA NITROGEN 31 mg/dL (7-18); CALCIUM 8.9 mg/dL (8.5-10.1); CARBON DIOXIDE 30.6 mmol/L (21-32); CHLORIDE 103 mmol/L (98-107); COR CA(FOR HYPOALB) 9.8 mg/dL (8.5-10.1); CREATINE KINASE 101 Units/L (26-192); CREATININE 1.53 mg/dL (0.55-1.02); GLUCOSE 109 mg/dL (65-99); LIPASE 70 Units/L (16-77); POTASSIUM 3.2 mmol/L (3.5-5.1); SODIUM 138 mmol/L (136-145); TOTAL PROTEIN 6.5 g/dL (6.4-8.2); eGFR NON BLACK RACES 34 (>60)
[2024-04-02 19:10] LABS: BILIRUBIN,URINE NEGATIVE (NEGATIVE); BLOOD/HEMOGLOBIN,URINE 2+ (NEGATIVE); GLUCOSE, URINE NEGATIVE (NEGATIVE); KETONES,URINE NEGATIVE (NEGATIVE); LEUKOCYTE ESTERASE ,URINE 3+ (NEGATIVE); NITRITES,URINE NEGATIVE (NEGATIVE); PROTEIN,URINE 2+ (NEGATIVE); UROBILINOGEN,URINE 1+ (NORMAL)
--- NOTE | 2024-04-02 19:28 | CT ---
EXAM:CERVICAL SPINE W/O CONHISTORY:Pt fell last night; She complained of pain posterior head, neck and left leg, Pt states she has hx of fractures to c-spineCOMPARISON:January 02, 2024TECHNIQUE:Axial non-contrast images of the cervical spine with coronal and sagittal reformats.Radiation dose: 130.97 mGy-cm total DLPFINDINGS:Vertebral body heights are maintained with normal alignment.Mild degenerative disc and joint changes.No fracture identified.Posterior elements are intact without jumped or perched facets.Prevertebral soft tissues are normal.Atlantoaxial articulation is intact.Soft tissues are unremarkable.Lung apices are unremarkable.IMPRESSION:No imaging findings of acute traumatic cervical spine injury.THIS IS AN ELECTRONICALLY VERIFIED FINAL REPORT04/02/2024 7:24 PM - Electronically signed by Nahun Watt MD
--- NOTE | 2024-04-02 19:28 | CT ---
EXAM:HEAD (TRAUMA)HISTORY:PT FELL LAST NIGHT; She complained of pain posterior head, neck and left leg.COMPARISON:December 2023TECHNIQUE:Multiple axial images of the brain were obtained from the skull base to the vertex without administration of IV contrast. Dose reduction techniques including Automated Exposure Control (AEC) and adjustment of mA and kV were utilized.FINDINGS:No acute intraparenchymal hemorrhage or mass can be identified. No extra-axial fluid collections are seen. No alteration in the attenuation of the brain parenchyma can be identified to suggest acute or subacute ischemic change. Scattered small-vessel ischemic changes and age-appropriate atrophy noted. The ventricular system is symmetric and nondilated. The extracranial structures appear unremarkable.IMPRESSION:1. No acute intracranial process can be identified.THIS IS AN ELECTRONICALLY VERIFIED FINAL REPORT04/02/2024 7:24 PM - Electronically signed by Benton Nielsen MD
--- NOTE | 2024-04-02 19:29 | RAD ---
EXAM:CHEST, 1 VIEWHISTORY:fall, weak; UnavailableCOMPARISON:None.FINDINGS:The trachea is midline. The cardiac silhouette is unremarkable. The lungs are clear without focal infiltrate or effusion. The bony thorax is unremarkable.IMPRESSION:No acute cardiopulmonary disease.THIS IS AN ELECTRONICALLY VERIFIED FINAL REPORT04/02/2024 7:26 PM - Electronically signed by Benton Nielsen MD
--- NOTE | 2024-04-02 19:29 | RAD ---
EXAM:HIP, LEFTHISTORY:fall, pain to left hip;COMPARISON:None available.FINDINGS:A single frontal view of the pelvis demonstrates the pelvic ring to be intact. No evidence for acute cortical disruption or dislocation of the hip can be observed. 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
[2024-04-02 20:17] LABS: APPEARANCE,URINE CLOUDY (CLEAR); BACTERIA,URINE 4+ /HPF (NEGATIVE); COLOR,URINE YELLOW (YELLOW); SQUAMOUS EPITHELIAL CELL,UR NUMEROUS /HPF (NEGATIVE)
[2024-04-02 20:18] LABS: HYALINE CASTS, URINE FEW /LPF (NEGATIVE); TRANSITIONAL EPI CELLS,URINE MODERATE /HPF (NEGATIVE)
[2024-04-02] MEDS: ROCEPHIN VIAL 1 GRAM 1 G in NS 100 ML IV 100 ML IV SCH (21:04)
[2024-04-02] MEDS ORDERED: CONSULT PHARMACY - POTASSIUM & MAGNESIUM XX ONE (22:22)
[2024-04-02] MEDS: NS 1,000 ML IV 1,000 ML IV SCH (22:42)
[2024-04-02] MEDS: K-DUR TAB 20 MEQ PO SCH (22:57)
[2024-04-02] MEDS: TYLENOL 325 MG TAB PO PRN (22:58)
[2024-04-02 23:15] VITALS: BMI 20.9
[2024-04-03 05:17] LABS: EOSINOPHILS # (AUTO) 0.1 x10^3/uL (0.0-0.2); HEMOGLOBIN 10.6 g/dL (12.0-16.0)
[2024-04-03] MEDS: SYNTHROID 75 mcg TAB PO SCH (05:28)
[2024-04-03 05:31] LABS: ALANINE AMINOTRANSFERASE 14 Units/L (12-78); ALBUMIN 2.4 g/dL (3.4-5.0); ALKALINE PHOSPHATASE 55 Units/L (46-116); ASPARTATE AMINO TRANSFERASE 15 Units/L (15-37); BLOOD UREA NITROGEN 24 mg/dL (7-18); CALCIUM 8.5 mg/dL (8.5-10.1); CARBON DIOXIDE 27.3 mmol/L (21-32); CHLORIDE 108 mmol/L (98-107); COR CA(FOR HYPOALB) 9.8 mg/dL (8.5-10.1); CREATININE 1.08 mg/dL (0.55-1.02); GLUCOSE 98 mg/dL (65-99); MAGNESIUM 1.7 mg/dL (2.0-2.9); POTASSIUM 3.9 mmol/L (3.5-5.1); SODIUM 141 mmol/L (136-145); TOTAL PROTEIN 5.7 g/dL (6.4-8.2); eGFR NON BLACK RACES 51 (>60)
[2024-04-03 05:39] LABS: BASOPHILS % (AUTO) 0.3 % (0.2-1.0); EOSINOPHILS % (AUTO) 1.6 % (0.9-2.9); HEMATOCRIT 31.6 % (36.0-47.0); LYMPHOCYTES # (AUTO) 1.5 X10^3/uL (1.3-2.9); LYMPHOCYTES % (AUTO) 23.5 % (21.0-51.0); MEAN CORPUSCULAR HEMOGLOBIN 28.4 pg (27.0-34.0); MEAN CORPUSCULAR HGB CONC 33.5 g/dL (33.0-35.0); MEAN CORPUSCULAR VOLUME 84.8 fL (80.0-100.0); MEAN PLATELET VOLUME 8.8 fL (7.4-11.0); MONOCYTES # (AUTO) 0.8 x10^3/uL (0.3-0.8); MONOCYTES % (AUTO) 12.1 % (0.0-13.0); NEUTROPHILS # (AUTO) 3.9 x10^3/uL (2.2-4.8); NEUTROPHILS % (AUTO) 62.5 % (42.0-75.0); PLATELET COUNT 145 X10^3/uL (150.0-450.0); RED BLOOD COUNT 3.73 X10^6/uL (3.5-5.4); RED CELL DISTRIBUTION WIDTH 14.6 % (11.6-16.5); WHITE BLOOD COUNT 6.2 X10^3/uL (3.6-10.0)
[2024-04-03] MEDS ORDERED: CONSULT PHARMACY - POTASSIUM & MAGNESIUM XX SCH (06:00)
[2024-04-03] MEDS: MAG-OX TAB PO SCH (06:50)
[2024-04-03] MEDS: LIPITOR TAB 10 MG PO SCH (09:42)
[2024-04-03] MEDS: ANTIVERT TAB 25 MG PO SCH (09:42)
[2024-04-03] MEDS: BENICAR PO SCH (09:42)
[2024-04-03] MEDS: HYDROCHLOROTHIAZIDE 25 MG TAB PO SCH (09:42)
[2024-04-03] MEDS: ZyrTEC TAB 10 MG PO SCH (09:43)
[2024-04-03] MEDS: TOPROL XL PO SCH (09:43)
[2024-04-03] MEDS: MOBIC TAB 15 MG PO SCH (09:43)
[2024-04-03] MEDS: LINZESS PO SCH (09:43)
[2024-04-03] MEDS: HIPREX PO SCH (11:20)
[2024-04-03] MEDS: LOVENOX INJ 40 MG SYR SC SCH (11:34)
[2024-04-03] MEDS: NORCO 7.5/325 MG TAB PO ONE (18:56)
[2024-04-03] MEDS: PREMARIN VAG VG SCH (20:16)
[2024-04-04 04:44] LABS: BASOPHILS % (AUTO) 0.8 % (0.2-1.0); EOSINOPHILS # (AUTO) 0.2 x10^3/uL (0.0-0.2); EOSINOPHILS % (AUTO) 2.8 % (0.9-2.9); HEMATOCRIT 30.8 % (36.0-47.0); HEMOGLOBIN 10.3 g/dL (12.0-16.0); LYMPHOCYTES # (AUTO) 1.6 X10^3/uL (1.3-2.9); LYMPHOCYTES % (AUTO) 27.2 % (21.0-51.0); MEAN CORPUSCULAR HEMOGLOBIN 28.3 pg (27.0-34.0); MEAN CORPUSCULAR HGB CONC 33.4 g/dL (33.0-35.0); MEAN CORPUSCULAR VOLUME 84.7 fL (80.0-100.0); MEAN PLATELET VOLUME 8.9 fL (7.4-11.0); MONOCYTES # (AUTO) 0.7 x10^3/uL (0.3-0.8); MONOCYTES % (AUTO) 11.8 % (0.0-13.0); NEUTROPHILS # (AUTO) 3.3 x10^3/uL (2.2-4.8); NEUTROPHILS % (AUTO) 57.4 % (42.0-75.0); PLATELET COUNT 150 X10^3/uL (150.0-450.0); RED BLOOD COUNT 3.63 X10^6/uL (3.5-5.4); RED CELL DISTRIBUTION WIDTH 14.5 % (11.6-16.5); WHITE BLOOD COUNT 5.7 X10^3/uL (3.6-10.0)
[2024-04-04 04:56] LABS: ALANINE AMINOTRANSFERASE 11 Units/L (12-78); ALBUMIN 2.3 g/dL (3.4-5.0); ALKALINE PHOSPHATASE 54 Units/L (46-116); ASPARTATE AMINO TRANSFERASE 15 Units/L (15-37); BLOOD UREA NITROGEN 25 mg/dL (7-18); CALCIUM 8.3 mg/dL (8.5-10.1); CARBON DIOXIDE 24.7 mmol/L (21-32); CHLORIDE 111 mmol/L (98-107); COR CA(FOR HYPOALB) 9.7 mg/dL (8.5-10.1); CREATININE 1.08 mg/dL (0.55-1.02); GLUCOSE 102 mg/dL (65-99); POTASSIUM 3.9 mmol/L (3.5-5.1); SODIUM 143 mmol/L (136-145); TOTAL PROTEIN 5.6 g/dL (6.4-8.2); eGFR NON BLACK RACES 51 (>60)
[2024-04-04] MEDS: MAGNESIUM SULFATE 1 GRAM/100 mL PREMIX 1 G/100 ML BAG IV SCH (12:42)
[2024-04-05 05:03] LABS: BASOPHILS % (AUTO) 0.6 % (0.2-1.0); EOSINOPHILS # (AUTO) 0.1 x10^3/uL (0.0-0.2); EOSINOPHILS % (AUTO) 2.9 % (0.9-2.9); HEMATOCRIT 30.4 % (36.0-47.0); HEMOGLOBIN 10.3 g/dL (12.0-16.0); LYMPHOCYTES # (AUTO) 1.5 X10^3/uL (1.3-2.9); LYMPHOCYTES % (AUTO) 28.5 % (21.0-51.0); MEAN CORPUSCULAR HEMOGLOBIN 28.7 pg (27.0-34.0); MEAN CORPUSCULAR HGB CONC 33.9 g/dL (33.0-35.0); MEAN CORPUSCULAR VOLUME 84.7 fL (80.0-100.0); MEAN PLATELET VOLUME 8.8 fL (7.4-11.0); MONOCYTES # (AUTO) 0.5 x10^3/uL (0.3-0.8); MONOCYTES % (AUTO) 9.4 % (0.0-13.0); NEUTROPHILS % (AUTO) 58.6 % (42.0-75.0); PLATELET COUNT 162 X10^3/uL (150.0-450.0); RED BLOOD COUNT 3.59 X10^6/uL (3.5-5.4); RED CELL DISTRIBUTION WIDTH 14.4 % (11.6-16.5); WHITE BLOOD COUNT 5.2 X10^3/uL (3.6-10.0)
[2024-04-05 05:09] LABS: ALANINE AMINOTRANSFERASE 12 Units/L (12-78); ALBUMIN 2.3 g/dL (3.4-5.0); ALKALINE PHOSPHATASE 52 Units/L (46-116); ASPARTATE AMINO TRANSFERASE 15 Units/L (15-37); BLOOD UREA NITROGEN 15 mg/dL (7-18); CALCIUM 8.4 mg/dL (8.5-10.1); CARBON DIOXIDE 25.5 mmol/L (21-32); CHLORIDE 109 mmol/L (98-107); COR CA(FOR HYPOALB) 9.8 mg/dL (8.5-10.1); CREATININE 0.97 mg/dL (0.55-1.02); GLUCOSE 95 mg/dL (65-99); POTASSIUM 3.4 mmol/L (3.5-5.1); SODIUM 143 mmol/L (136-145); TOTAL PROTEIN 5.5 g/dL (6.4-8.2); eGFR NON BLACK RACES 58 (>60)
[2024-04-05] MEDS: MAGNESIUM SULFATE 1 GRAM/100 mL PREMIX 1 G/100 ML BAG IV SCH ×2 (08:35→11:54)
[2024-04-05] MEDS: KLOR-CON PO SCH (08:36)
[2024-04-05] MEDS ORDERED: MAG-OX TAB PO SCH (09:00)
[2024-04-05] MEDS ORDERED: K-DUR TAB 20 MEQ PO SCH (09:00)
[2024-04-05] MEDS: CONSULT PHARMACY - POTASSIUM & MAGNESIUM XX SCH (09:27)
[2024-04-05] MEDS: K-DUR TAB 20 MEQ PO SCH (11:54)
[2024-04-06 06:21] LABS: BASOPHILS % (AUTO) 0.8 % (0.2-1.0); EOSINOPHILS # (AUTO) 0.1 x10^3/uL (0.0-0.2); HEMATOCRIT 29.5 % (36.0-47.0); HEMOGLOBIN 10.1 g/dL (12.0-16.0); LYMPHOCYTES # (AUTO) 1.4 X10^3/uL (1.3-2.9); LYMPHOCYTES % (AUTO) 30.7 % (21.0-51.0); MEAN CORPUSCULAR HEMOGLOBIN 28.7 pg (27.0-34.0); MEAN CORPUSCULAR HGB CONC 34.1 g/dL (33.0-35.0); MEAN CORPUSCULAR VOLUME 84.3 fL (80.0-100.0); MEAN PLATELET VOLUME 8.9 fL (7.4-11.0); MONOCYTES # (AUTO) 0.5 x10^3/uL (0.3-0.8); MONOCYTES % (AUTO) 11.3 % (0.0-13.0); NEUTROPHILS # (AUTO) 2.6 x10^3/uL (2.2-4.8); NEUTROPHILS % (AUTO) 54.2 % (42.0-75.0); PLATELET COUNT 164 X10^3/uL (150.0-450.0); RED CELL DISTRIBUTION WIDTH 14.1 % (11.6-16.5); WHITE BLOOD COUNT 4.7 X10^3/uL (3.6-10.0)
[2024-04-06 06:41] LABS: ALANINE AMINOTRANSFERASE 14 Units/L (12-78); ALBUMIN 2.2 g/dL (3.4-5.0); ALKALINE PHOSPHATASE 47 Units/L (46-116); ASPARTATE AMINO TRANSFERASE 16 Units/L (15-37); BLOOD UREA NITROGEN 10 mg/dL (7-18); CALCIUM 8.4 mg/dL (8.5-10.1); CARBON DIOXIDE 24.8 mmol/L (21-32); CHLORIDE 111 mmol/L (98-107); COR CA(FOR HYPOALB) 9.8 mg/dL (8.5-10.1); CREATININE 0.87 mg/dL (0.55-1.02); GLUCOSE 94 mg/dL (65-99); MAGNESIUM 1.9 mg/dL (2.0-2.9); POTASSIUM 3.7 mmol/L (3.5-5.1); SODIUM 143 mmol/L (136-145); TOTAL PROTEIN 5.4 g/dL (6.4-8.2); eGFR NON BLACK RACES > 60 (>60)
[2024-04-06] MEDS ORDERED: CONSULT PHARMACY - POTASSIUM & MAGNESIUM XX SCH (07:00)
[2024-04-06 08:41] LABS: RETICULOCYTE % 0.54 % (0.8-2.2)
[2024-04-06 08:57] LABS: CHOL/HDL RATIO 2.7 (0.0-5.0); TSH (3RD GENERATION) 1.046 uIU/mL (0.358-3.74)
[2024-04-06] MEDS: K-DUR TAB 20 MEQ PO SCH (09:04)
[2024-04-06] MEDS: MAG-OX TAB PO SCH (09:05)
[2024-04-06] MEDS ORDERED: NS 1/2 1,000 ML IV 1,000 ML IV ONE (09:38)
[2024-04-06] MEDS: TORADOL 15 MG VIAL IVP SCH (09:48)
[2024-04-06] MEDS: NS 1/2 1,000 ML IV 1,000 ML IV SCH (09:49)
--- NOTE | 2024-04-06 09:58 | RAD ---
EXAM: CHEST, PA/LAT ADULT HISTORY: SOB; COMPARISON: Prior study or studies were utilized for comparison during interpretation with the most relevant eliza ed 04/02/2024 TECHNIQUE: CHEST, PA/LAT ADULT FINDINGS: Chest: Lines and tubes: None Mediastinum: Cardiac and mediastinal shadow is within normal limits for size and contour. Pulmonary vessels: No pulmonary vascular congestion. Lung long: No suspicious airspace opacity. Pleura: No effusion. No pneumothorax. Bones and soft tissues: No acute osseous or soft tissue abnormality. IMPRESSION: 1. No acute cardiopulmonary abnormality THIS IS AN ELECTRONICALLY VERIFIED FINAL REPORT 04/06/2024 9:49 AM - Electronically signed by Pieter Oliver MD
--- NOTE | 2024-04-06 12:01 | CT ---
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 The associated erosions are suspected. No hip fracture or dislocation is seen. No arthritic changes are seen in the symphysis pubis or SI joints.There is a right inguinal hernia containing fat and a small amount of fluid. There are sigmoid colon diverticula without evidence of diverticulitis. Subcutaneous edema is seen in both hips there could be mild anasarca or ecchymosis. Trace free pelvic fluid is probably physiologic.Likely central disc bulge and posterior element hypertrophy at L3-4 result in probable moderate thecal sac effacement. 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
--- NOTE | 2024-04-06 12:14 | CT ---
EXAM: CT thoracic spine without IV contrast HISTORY: fall intractable back pain, compression fracture COMPARISON: CT 01/02/2024 TECHNIQUE: Multiple axial images of the thoracic spine were obtained from the thoracic inlet to the thoracolumba r junction without IV contrast . Sagittal and coronal reconstructions were performed and reviewed. Dose reduction techniques including Automated Exposure Control (AEC) and adjustment of mA and kV were utilized. FINDINGS: T2-4 compression fractures are present. These were present previously. There is 15% central loss of height of T2, slightly worsened since prior study. Less than 10% loss of height of T3 is unchanged. 80% compression fracture of T4 is slightly worsened since prior study. There is displacement of the posterior cortex of T4 into the central canal on the right but this only causes mild stenosis, simila r to prior study. No new thoracic compression fracture is seen. There is no scoliosis or subluxation. There is a larg e probable cyst in the right lobe of the liver. This is not fully included on this study but was pre sent previously. It is probably similar to CT chest in 2020. IMPRESSION: Worsening compression fractures of T2 and T4 since prior study. T3 compression fracture is unchanged . No new compression fractures are seen. THIS IS AN ELECTRONICALLY VERIFIED FINAL REPORT 04/06/2024 12:11 PM - Electronically signed by Markie Patino MD
--- NOTE | 2024-04-06 12:53 | PCM.PROG ---
Progress Note Progress Note for Day of Date of Exam: 04/06/24 Subjective Subjective: PT IS 88 WF, ER ADMISSION AFTER FAMILY PRESENTED TO ER WITH PT STATING THEY FOUND HER ON FLOOR AM OF 7 WITH CONFUSION AND INTRACTABLE BACK PAIN. PT WAS UNABLE TO BEAR WEIGHT AT THAT TIME. PT WAS HYPERTENSIVE ON ARRIVAL WITH A UTI. PT HAD UC ON ADMISSION AND STARTED ON IV ROCEPHIN. PT HAS BEEN ON PAIN CONTROL WITH OPIOID PAIN MEDICATION SINCE ADMISSION. PT CO LOWER LEGS SWELLING ON ASSESSMENT WITH SOB. PT CO SOB WORSE ON EXERTION BUT NO CHEST PAIN. PT HAD +2 PITTING EDEMA ON EXAM. RESP CONSULTED FOR IS, BNP AND ANEMIA PANEL ADDED TO AM LABS. PT CO PAIN TO MID BACK AND HIPS WITH "LEGS GIVE OUT" PT CO FEELING OFF BALANCE IN HER HEAD ALSO. CT OF BRAIN WAS OBTAINED ON ADMISSION. PLAN TO OBTAIN CT TSPINE AND PELVIS. WILL DECREASE IV FLUIDS AND CHANGED TO 1/2 NS DUE TO CHLORIDE ELEVATED. PT ENCOURAGE INCREASE PO HYDRATION. PT IS ON HCTZ FOR BP CONTROL, WILL WAIT ON BNP AND CHEST XRAY. PT MAY REQUIRE DOSE IV LASIX. BP 167/77. PT IS UNABLE TO CARE FOR HERSELF AT HOME AND IS REQUIRING ASSITANCE FOR ADLS. PT NEEDS REHAB PLACEMENT FOR THERAPY AND MEDICATIONS MANAGEMENT. Past Medical Family Social History Allergies: Allergies No Known Allergies Allergy (Verified 04/02/24 19:34) Review of Systems ROS changes noted: LEGS SWELLING, SOB, BACK PAIN, WEAKNESS Vital Signs and I&O's Vital Signs: Vital Signs Temperature 97.4 F Temperature 97.6 F Pulse Rate [Left] 67 Pulse Rate [Left] 72 Respiratory Rate 16 Respiratory Rate 18 Respiratory Rate 18 Respiratory Rate 16 Respiratory Rate 18 Blood Pressure [Left Arm] 167/77 Blood Pressure [Left Arm] 177/75 O2 Sat by Pulse Oximetry 96 O2 Sat by Pulse Oximetry 96 Intake and Output: Intake & Output 04/04/24 04/05/24 04/06/24 04/07/24 11:59 11:59 11:59 11:59 Intake Total 2340 / 2340 1642 / 1642 1954 Output Total 0 / 0 Balance 2340 / 2340 1642 / 1642 1954 Physical Exam Oriented: Person Eyes: Normal Nose: Normal Throat: Dry Respiratory: Diminished Cardiovascular: Edema Auscultation: Bowel Sounds: Normal Tenderness: Normal Skin: Decreased Turgur and Bruising Musculoskeletal: Back:Thoracic, Back:Lumbar, Motor Deficit and Instability Mood Description: Depressed Affect: Depressed Speech Pattern: Clear and Appropriate Laboratory and Diagnostics 04/06/24 05:13 04/06/24 05:13 Labs: 04/02/24 18:55 Urine,Clean Catch Urine Culture - Final Laboratory WBC 4.7 X10^3/uL (3.6-10.0) 04/06/24 05:13 RBC 3.50 X10^6/uL (3.5-5.4) 04/06/24 05:13 Hgb 10.1 g/dL (12.0-16.0) L 04/06/24 05:13 Hct 29.5 % (36.0-47.0) L 04/06/24 05:13 MCV 84.3 fL (80.0-100.0) 04/06/24 05:13 MCH 28.7 pg (27.0-34.0) 04/06/24 05:13 MCHC 34.1 g/dL (33.0-35.0) 04/06/24 05:13 RDW 14.1 % (11.6-16.5) 04/06/24 05:13 Plt Count 164 X10^3/uL (150.0-450.0) 04/06/24 05:13 MPV 8.9 fL (7.4-11.0) 04/06/24 05:13 Neut % (Auto) 54.2 % (42.0-75.0) 04/06/24 05:13 Lymph % (Auto) 30.7 % (21.0-51.0) 04/06/24 05:13 [place] % (Auto) 11.3 % (0.0-13.0) 04/06/24 05:13 Eos % (Auto) 3.0 % (0.9-2.9) H 04/06/24 05:13 Baso % (Auto) 0.8 % (0.2-1.0) 04/06/24 05:13 Neut # (Auto) 2.6 x10^3/uL (2.2-4.8) 04/06/24 05:13 Lymph # (Auto) 1.4 X10^3/uL (1.3-2.9) 04/06/24 05:13 [place] # (Auto) 0.5 x10^3/uL (0.3-0.8) 04/06/24 05:13 Eos # (Auto) 0.1 x10^3/uL (0.0-0.2) 04/06/24 05:13 Baso # (Auto) 0.0 X10^3/uL (0.0-0.1) 04/06/24 05:13 Absolute Nucleated RBC 0.1 /100WBC 04/06/24 05:13 Absolute Retic 0.0194 10^6/uL 04/06/24 05:13 Percent Retic 0.54 % (0.8-2.2) L 04/06/24 05:13 D-Dimer 2.36 ug/ml (0.0-0.57) H 04/06/24 05:13 Sodium 143 mmol/L (136-145) 04/06/24 05:13 Corrected Sodium TNP 04/06/24 05:13 Potassium 3.7 mmol/L (3.5-5.1) 04/06/24 05:13 Chloride 111 mmol/L (98-107) H 04/06/24 05:13 Carbon Dioxide 24.8 mmol/L (21-32) 04/06/24 05:13 BUN 10 mg/dL (7-18) 04/06/24 05:13 Creatinine 0.87 mg/dL (0.55-1.02) 04/06/24 05:13 Est GFR (MDRD) Af Amer > 60 (>60) 04/06/24 05:13 Est GFR (MDRD) Non-Af > 60 (>60) 04/06/24 05:13 Glucose 94 mg/dL (65-99) 04/06/24 05:13 Calcium 8.4 mg/dL (8.5-10.1) L 04/06/24 05:13 Corrected Calcium 9.8 mg/dL (8.5-10.1) 04/06/24 05:13 Magnesium 1.9 mg/dL (2.0-2.9) L 04/06/24 05:13 Iron 77 ug/dL (50-175) 04/06/24 05:13 TIBC 220 ug/dL (250-450) L 04/06/24 05:13 Transferrin 175 mg/dL (202-364) L 04/06/24 05:13 Ferritin 82 ng/mL (8-252) 04/06/24 05:13 Total Bilirubin 0.20 mg/dL (0.2-1.0) 04/06/24 05:13 AST 16 Units/L (15-37) 04/06/24 05:13 ALT 14 Units/L (12-78) 04/06/24 05:13 Alkaline Phosphatase 47 Units/L (46-116) 04/06/24 05:13 Creatine Kinase 34 Units/L (26-192) 04/06/24 05:13 Troponin I High Sens 9.4 ng/L (4.0-60.0) 04/06/24 05:13 B-Natriuretic Peptide 330 pg/mL (0-79) H 04/06/24 05:13 Total Protein 5.4 g/dL (6.4-8.2) L 04/06/24 05:13 Albumin 2.2 g/dL (3.4-5.0) L 04/06/24 05:13 Globulin 3.2 g/dL (2.5-4.5) 04/06/24 05:13 Albumin/Globulin Ratio 0.7 Ratio (1.1-2.1) L 04/06/24 05:13 Triglycerides 55 mg/dL (0-150) 04/06/24 05:13 Cholesterol 125 mg/dL (0-200) 04/06/24 05:13 LDL Cholesterol, Calc 68 mg/dL (0-100) 04/06/24 05:13 HDL Cholesterol 46 mg/dL (40-60) 04/06/24 05:13 Cholesterol/HDL Ratio 2.7 (0.0-5.0) 04/06/24 05:13 Lipase 70 Units/L (16-77) 04/02/24 18:00 Vitamin B12 621 pg/mL (193-986) 04/06/24 05:13 Folate 15.0 ng/mL (>8.6) 04/06/24 05:13 TSH 3rd Generation 1.046 uIU/mL (0.358-3.74) 04/06/24 05:13 Specimen Type Clean catch urine 04/02/24 18:55 Urine Color Yellow (YELLOW) 04/02/24 18:55 Urine Appearance Cloudy (CLEAR) 04/02/24 18:55 Urine pH 6.0 (5.0 - 8.0) 04/02/24 18:55 Ur Specific [place] 1.015 (1.000-1.030) 04/02/24 18:55 Urine Protein 2+ (NEGATIVE) 04/02/24 18:55 Urine Glucose (UA) Negative (NEGATIVE) 04/02/24 18:55 Urine Ketones Negative (NEGATIVE) 04/02/24 18:55 Urine Blood 2+ (NEGATIVE) 04/02/24 18:55 Urine Nitrite Negative (NEGATIVE) 04/02/24 18:55 Urine Bilirubin Negative (NEGATIVE) 04/02/24 18:55 Urine Urobilinogen 1+ (NORMAL) 04/02/24 18:55 Ur Leukocyte Esterase 3+ (NEGATIVE) 04/02/24 18:55 Urine RBC 3-5 /HPF (0-3) A 04/02/24 18:55 Urine WBC Tntc /HPF (0-5) A 04/02/24 18:55 Ur Squamous Epith Cells Numerous /HPF (NEGATIVE) 04/02/24 18:55 Ur Transition Epith Cell Moderate /HPF (NEGATIVE) 04/02/24 18:55 Urine Bacteria 4+ /HPF (NEGATIVE) 04/02/24 18:55 Hyaline Casts Few /LPF (NEGATIVE) 04/02/24 18:55 Ur Culture Indicated? No/not indicated 04/02/24 18:55 Plan (1) Altered mental status: Status: Acute Narrative Support Text: CT HEAD ON ADMISSION IN ER AM LABS, DDIMER AND BNP TODAY FLP AND TSH TO LABS CXR AND RESP CONSULT PAIN CONTROL WITH TORADOL IV AND PO [facility] RECOMMENDED. (2) Compression fx, thoracic spine: Status: Acute (3) CHF (congestive heart failure): Status: Acute (4) Urinary tract infection: Status: Acute (5) Head injury due to trauma: Status: Acute (6) Weakness: Status: Acute
[2024-04-07] MEDS: NS 1/2 1,000 ML IV 1,000 ML IV ONE ×2 (02:02→23:02)
[2024-04-07 05:08] LABS: BASOPHILS # (AUTO) 0.1 X10^3/uL (0.0-0.1); BASOPHILS % (AUTO) 1.3 % (0.2-1.0); EOSINOPHILS # (AUTO) 0.1 x10^3/uL (0.0-0.2); EOSINOPHILS % (AUTO) 2.9 % (0.9-2.9); HEMATOCRIT 29.7 % (36.0-47.0); HEMOGLOBIN 10.1 g/dL (12.0-16.0); LYMPHOCYTES # (AUTO) 1.4 X10^3/uL (1.3-2.9); LYMPHOCYTES % (AUTO) 29.6 % (21.0-51.0); MEAN CORPUSCULAR HEMOGLOBIN 28.6 pg (27.0-34.0); MEAN CORPUSCULAR HGB CONC 33.9 g/dL (33.0-35.0); MEAN CORPUSCULAR VOLUME 84.4 fL (80.0-100.0); MEAN PLATELET VOLUME 8.2 fL (7.4-11.0); MONOCYTES # (AUTO) 0.6 x10^3/uL (0.3-0.8); MONOCYTES % (AUTO) 12.3 % (0.0-13.0); NEUTROPHILS # (AUTO) 2.6 x10^3/uL (2.2-4.8); NEUTROPHILS % (AUTO) 53.9 % (42.0-75.0); PLATELET COUNT 168 X10^3/uL (150.0-450.0); RED BLOOD COUNT 3.52 X10^6/uL (3.5-5.4); RED CELL DISTRIBUTION WIDTH 14.2 % (11.6-16.5); WHITE BLOOD COUNT 4.7 X10^3/uL (3.6-10.0)
[2024-04-07 05:48] LABS: ALANINE AMINOTRANSFERASE 12 Units/L (12-78); ALBUMIN 2.2 g/dL (3.4-5.0); ALKALINE PHOSPHATASE 55 Units/L (46-116); ASPARTATE AMINO TRANSFERASE 15 Units/L (15-37); BLOOD UREA NITROGEN 9 mg/dL (7-18); CALCIUM 8.5 mg/dL (8.5-10.1); CARBON DIOXIDE 24.7 mmol/L (21-32); CHLORIDE 109 mmol/L (98-107); COR CA(FOR HYPOALB) 9.9 mg/dL (8.5-10.1); CREATININE 0.78 mg/dL (0.55-1.02); GLUCOSE 89 mg/dL (65-99); MAGNESIUM 1.8 mg/dL (2.0-2.9); POTASSIUM 3.9 mmol/L (3.5-5.1); SODIUM 141 mmol/L (136-145); TOTAL PROTEIN 5.3 g/dL (6.4-8.2); eGFR NON BLACK RACES > 60 (>60)
[2024-04-07] MEDS ORDERED: MORPHINE SULFATE INJ 2 MG INJ IVP PRN (08:08)
[2024-04-07] MEDS: K-DUR TAB 20 MEQ PO SCH (09:12)
[2024-04-07] MEDS: LASIX IVP ONE (09:13)
--- NOTE | 2024-04-07 18:00 | PCM.PROG ---
Progress Note Progress Note for Day of Date of Exam: 04/07/24 Subjective Subjective: PT IS 88 WF, ER ADMISSION AFTER FAMILY PRESENTED TO ER WITH PT STATING THEY FOUND HER ON FLOOR AM OF 7 WITH CONFUSION AND INTRACTABLE BACK PAIN. PT WAS UNABLE TO BEAR WEIGHT AT THAT TIME. PT WAS HYPERTENSIVE ON ARRIVAL WITH A UTI. PT HAD UC ON ADMISSION AND STARTED ON IV ROCEPHIN. PT HAS BEEN ON PAIN CONTROL WITH OPIOID PAIN MEDICATION SINCE ADMISSION. PT CO LOWER LEGS SWELLING ON ASSESSMENT WITH SOB. PT CO SOB WORSE ON EXERTION BUT NO CHEST PAIN. PT HAD +2 PITTING EDEMA ON EXAM, LASIX 20MG IV X 1 DOSE WITH STRICT I&OS AND POTASSIUM REPLACEMENT. RESP CONSULTED FOR IS, BNP AND ANEMIA PANEL ADDED TO AM LABS. PT CO PAIN TO MID BACK AND HIPS WITH "LEGS GIVE OUT" PT CO FEELING OFF BALANCE IN HER HEAD ALSO. CT OF BRAIN WAS OBTAINED ON ADMISSION. CT TSPINE AND PELVIS WITH SPINAL CANAL STENOSIS, T SPINE COMPRESSION FRACTURE. IV FLUIDS AND CHANGED TO 1/2 NS DUE TO CHLORIDE ELEVATED. PT ENCOURAGE INCREASE PO HYDRATION. PT IS ON HCTZ FOR BP CONTROL. ECHO ORDERED FOR TODAY AND REPEAT BNP ON MORNING LABS. REPEAT AM CXR. PT IS UNABLE TO CARE FOR HERSELF AT HOME AND IS REQUIRING ASSITANCE FOR ADLS. PT NEEDS REHAB PLACEMENT FOR THERAPY AND MEDICATIONS MANAGEMENT. Past Medical Family Social History Allergies: Allergies No Known Allergies Allergy (Verified 04/02/24 19:34) Vital Signs and I&O's Vital Signs: Vital Signs Temperature 97.4 F Temperature 98.1 F Pulse Rate [Left] 72 Pulse Rate [Left] 76 Respiratory Rate 18 Respiratory Rate 18 Blood Pressure [Right Arm] 133/61 Blood Pressure [Left Arm] 141/73 O2 Sat by Pulse Oximetry 100 O2 Sat by Pulse Oximetry 100 Intake and Output: Intake & Output 04/05/24 04/06/24 04/07/24 04/08/24 11:59 11:59 11:59 11:59 Intake Total 1642 / 1642 1954 1481 / 1481 470 / 470 Output Total 0 / 0 Balance 1642 / 1642 1954 1481 / 1481 470 / 470 Physical Exam Oriented: Person Eyes: Normal Nose: Normal Throat: Dry Respiratory: Diminished Cardiovascular: Edema Auscultation: Bowel Sounds: Normal Tenderness: Normal Skin: Decreased Turgur and Bruising Musculoskeletal: Back:Thoracic, Back:Lumbar, Motor Deficit and Instability Mood Description: Depressed Affect: Depressed Speech Pattern: Clear and Appropriate Laboratory and Diagnostics 04/07/24 04:53 04/07/24 04:53 Labs: 04/02/24 18:55 Urine,Clean Catch Urine Culture - Final Laboratory WBC 4.7 X10^3/uL (3.6-10.0) 04/07/24 04:53 RBC 3.52 X10^6/uL (3.5-5.4) 04/07/24 04:53 Hgb 10.1 g/dL (12.0-16.0) L 04/07/24 04:53 Hct 29.7 % (36.0-47.0) L 04/07/24 04:53 MCV 84.4 fL (80.0-100.0) 04/07/24 04:53 MCH 28.6 pg (27.0-34.0) 04/07/24 04:53 MCHC 33.9 g/dL (33.0-35.0) 04/07/24 04:53 RDW 14.2 % (11.6-16.5) 04/07/24 04:53 Plt Count 168 X10^3/uL (150.0-450.0) 04/07/24 04:53 MPV 8.2 fL (7.4-11.0) 04/07/24 04:53 Neut % (Auto) 53.9 % (42.0-75.0) 04/07/24 04:53 Lymph % (Auto) 29.6 % (21.0-51.0) 04/07/24 04:53 [place] % (Auto) 12.3 % (0.0-13.0) 04/07/24 04:53 Eos % (Auto) 2.9 % (0.9-2.9) 04/07/24 04:53 Baso % (Auto) 1.3 % (0.2-1.0) H 04/07/24 04:53 Neut # (Auto) 2.6 x10^3/uL (2.2-4.8) 04/07/24 04:53 Lymph # (Auto) 1.4 X10^3/uL (1.3-2.9) 04/07/24 04:53 [place] # (Auto) 0.6 x10^3/uL (0.3-0.8) 04/07/24 04:53 Eos # (Auto) 0.1 x10^3/uL (0.0-0.2) 04/07/24 04:53 Baso # (Auto) 0.1 X10^3/uL (0.0-0.1) 04/07/24 04:53 Absolute Nucleated RBC 0.0 /100WBC 04/07/24 04:53 Absolute Retic 0.0194 10^6/uL 04/06/24 05:13 Percent Retic 0.54 % (0.8-2.2) L 04/06/24 05:13 D-Dimer 2.36 ug/ml (0.0-0.57) H 04/06/24 05:13 Sodium 141 mmol/L (136-145) 04/07/24 04:53 Corrected Sodium TNP 04/07/24 04:53 Potassium 3.9 mmol/L (3.5-5.1) 04/07/24 04:53 Chloride 109 mmol/L (98-107) H 04/07/24 04:53 Carbon Dioxide 24.7 mmol/L (21-32) 04/07/24 04:53 BUN 9 mg/dL (7-18) 04/07/24 04:53 Creatinine 0.78 mg/dL (0.55-1.02) 04/07/24 04:53 Est GFR (MDRD) Af Amer > 60 (>60) 04/07/24 04:53 Est GFR (MDRD) Non-Af > 60 (>60) 04/07/24 04:53 Glucose 89 mg/dL (65-99) 04/07/24 04:53 Calcium 8.5 mg/dL (8.5-10.1) 04/07/24 04:53 Corrected Calcium 9.9 mg/dL (8.5-10.1) 04/07/24 04:53 Magnesium 1.8 mg/dL (2.0-2.9) L 04/07/24 04:53 Iron 77 ug/dL (50-175) 04/06/24 05:13 TIBC 220 ug/dL (250-450) L 04/06/24 05:13 Transferrin 175 mg/dL (202-364) L 04/06/24 05:13 Ferritin 82 ng/mL (8-252) 04/06/24 05:13 Total Bilirubin 0.20 mg/dL (0.2-1.0) 04/07/24 04:53 AST 15 Units/L (15-37) 04/07/24 04:53 ALT 12 Units/L (12-78) 04/07/24 04:53 Alkaline Phosphatase 55 Units/L (46-116) 04/07/24 04:53 Creatine Kinase 34 Units/L (26-192) 04/06/24 05:13 Troponin I High Sens 9.4 ng/L (4.0-60.0) 04/06/24 05:13 B-Natriuretic Peptide 299 pg/mL (0-79) H 04/07/24 04:53 Total Protein 5.3 g/dL (6.4-8.2) L 04/07/24 04:53 Albumin 2.2 g/dL (3.4-5.0) L 04/07/24 04:53 Globulin 3.1 g/dL (2.5-4.5) 04/07/24 04:53 Albumin/Globulin Ratio 0.7 Ratio (1.1-2.1) L 04/07/24 04:53 Triglycerides 55 mg/dL (0-150) 04/06/24 05:13 Cholesterol 125 mg/dL (0-200) 04/06/24 05:13 LDL Cholesterol, Calc 68 mg/dL (0-100) 04/06/24 05:13 HDL Cholesterol 46 mg/dL (40-60) 04/06/24 05:13 Cholesterol/HDL Ratio 2.7 (0.0-5.0) 04/06/24 05:13 Lipase 70 Units/L (16-77) 04/02/24 18:00 Vitamin B12 621 pg/mL (193-986) 04/06/24 05:13 Folate 15.0 ng/mL (>8.6) 04/06/24 05:13 TSH 3rd Generation 1.046 uIU/mL (0.358-3.74) 04/06/24 05:13 Specimen Type Clean catch urine 04/02/24 18:55 Urine Color Yellow (YELLOW) 04/02/24 18:55 Urine Appearance Cloudy (CLEAR) 04/02/24 18:55 Urine pH 6.0 (5.0 - 8.0) 04/02/24 18:55 Ur Specific [place] 1.015 (1.000-1.030) 04/02/24 18:55 Urine Protein 2+ (NEGATIVE) 04/02/24 18:55 Urine Glucose (UA) Negative (NEGATIVE) 04/02/24 18:55 Urine Ketones Negative (NEGATIVE) 04/02/24 18:55 Urine Blood 2+ (NEGATIVE) 04/02/24 18:55 Urine Nitrite Negative (NEGATIVE) 04/02/24 18:55 Urine Bilirubin Negative (NEGATIVE) 04/02/24 18:55 Urine Urobilinogen 1+ (NORMAL) 04/02/24 18:55 Ur Leukocyte Esterase 3+ (NEGATIVE) 04/02/24 18:55 Urine RBC 3-5 /HPF (0-3) A 04/02/24 18:55 Urine WBC Tntc /HPF (0-5) A 04/02/24 18:55 Ur Squamous Epith Cells Numerous /HPF (NEGATIVE) 04/02/24 18:55 Ur Transition Epith Cell Moderate /HPF (NEGATIVE) 04/02/24 18:55 Urine Bacteria 4+ /HPF (NEGATIVE) 04/02/24 18:55 Hyaline Casts Few /LPF (NEGATIVE) 04/02/24 18:55 Ur Culture Indicated? No/not indicated 04/02/24 18:55 Infect Dis PCR Plus See scanned report 04/04/24 14:05 Plan (1) Altered mental status: Status: Acute (2) Compression fx, thoracic spine: Status: Acute (3) CHF (congestive heart failure): Status: Acute (4) Urinary tract infection: Status: Acute (5) Head injury due to trauma: Status: Acute (6) Weakness: Status: Acute
[2024-04-08 06:23] LABS: EOSINOPHILS # (AUTO) 0.1 x10^3/uL (0.0-0.2); EOSINOPHILS % (AUTO) 2.8 % (0.9-2.9); HEMATOCRIT 31.4 % (36.0-47.0); HEMOGLOBIN 10.6 g/dL (12.0-16.0); LYMPHOCYTES # (AUTO) 1.4 X10^3/uL (1.3-2.9); LYMPHOCYTES % (AUTO) 29.6 % (21.0-51.0); MEAN CORPUSCULAR HEMOGLOBIN 28.6 pg (27.0-34.0); MEAN CORPUSCULAR HGB CONC 33.6 g/dL (33.0-35.0); MEAN CORPUSCULAR VOLUME 85.1 fL (80.0-100.0); MEAN PLATELET VOLUME 8.8 fL (7.4-11.0); MONOCYTES # (AUTO) 0.6 x10^3/uL (0.3-0.8); MONOCYTES % (AUTO) 12.6 % (0.0-13.0); NEUTROPHILS # (AUTO) 2.6 x10^3/uL (2.2-4.8); PLATELET COUNT 171 X10^3/uL (150.0-450.0); RED BLOOD COUNT 3.69 X10^6/uL (3.5-5.4); RED CELL DISTRIBUTION WIDTH 14.3 % (11.6-16.5); WHITE BLOOD COUNT 4.9 X10^3/uL (3.6-10.0)
--- NOTE | 2024-04-08 07:00 | RAD ---
EXAM:Two-view chestHISTORY:Shortness of breathCOMPARISON:04/06/2024FINDINGS:Hear t size is normal. Rabia are normal. Lungs are hyperinflated. No acute alveolar infiltrates or pleural effusions are identified. Bony thorax is unremarkable.IMPRESSION:Lungs are mildly hyperinflated but free of acute infiltratesTHIS IS AN ELECTRONICALLY VERIFIED FINAL REPORT04/08/2024 6:57 AM - Electronically signed by Pérez Romo MD
[2024-04-08 07:22] LABS: ALANINE AMINOTRANSFERASE 16 Units/L (12-78); ALBUMIN 2.4 g/dL (3.4-5.0); ALKALINE PHOSPHATASE 59 Units/L (46-116); ASPARTATE AMINO TRANSFERASE 21 Units/L (15-37); BLOOD UREA NITROGEN 10 mg/dL (7-18); CALCIUM 8.7 mg/dL (8.5-10.1); CARBON DIOXIDE 27.9 mmol/L (21-32); CHLORIDE 107 mmol/L (98-107); CREATININE 0.89 mg/dL (0.55-1.02); GLUCOSE 89 mg/dL (65-99); MAGNESIUM 1.5 mg/dL (2.0-2.9); POTASSIUM 3.7 mmol/L (3.5-5.1); SODIUM 142 mmol/L (136-145); TOTAL PROTEIN 5.7 g/dL (6.4-8.2); eGFR NON BLACK RACES > 60 (>60)
[2024-04-08] MEDS: NS 1/2 1,000 ML IV 1,000 ML IV ONE (11:30)
[2024-04-09] MEDS: NS 1/2 1,000 ML IV 1,000 ML IV ONE (05:48)
[2024-04-09 06:27] LABS: BASOPHILS % (AUTO) 0.7 % (0.2-1.0); EOSINOPHILS # (AUTO) 0.1 x10^3/uL (0.0-0.2); EOSINOPHILS % (AUTO) 2.9 % (0.9-2.9); HEMATOCRIT 31.8 % (36.0-47.0); HEMOGLOBIN 10.5 g/dL (12.0-16.0); LYMPHOCYTES # (AUTO) 1.4 X10^3/uL (1.3-2.9); LYMPHOCYTES % (AUTO) 27.5 % (21.0-51.0); MEAN CORPUSCULAR HEMOGLOBIN 28.1 pg (27.0-34.0); MEAN CORPUSCULAR HGB CONC 33.1 g/dL (33.0-35.0); MEAN CORPUSCULAR VOLUME 84.8 fL (80.0-100.0); MEAN PLATELET VOLUME 8.4 fL (7.4-11.0); MONOCYTES # (AUTO) 0.7 x10^3/uL (0.3-0.8); MONOCYTES % (AUTO) 13.9 % (0.0-13.0); NEUTROPHILS # (AUTO) 2.7 x10^3/uL (2.2-4.8); PLATELET COUNT 166 X10^3/uL (150.0-450.0); RED BLOOD COUNT 3.75 X10^6/uL (3.5-5.4); RED CELL DISTRIBUTION WIDTH 14.1 % (11.6-16.5); WHITE BLOOD COUNT 4.9 X10^3/uL (3.6-10.0)
[2024-04-09 06:46] LABS: ALANINE AMINOTRANSFERASE 18 Units/L (12-78); ALBUMIN 2.4 g/dL (3.4-5.0); ALKALINE PHOSPHATASE 56 Units/L (46-116); ASPARTATE AMINO TRANSFERASE 21 Units/L (15-37); BLOOD UREA NITROGEN 8 mg/dL (7-18); CALCIUM 8.8 mg/dL (8.5-10.1); CARBON DIOXIDE 28.5 mmol/L (21-32); CHLORIDE 107 mmol/L (98-107); COR CA(FOR HYPOALB) 10.1 mg/dL (8.5-10.1); GLUCOSE 88 mg/dL (65-99); MAGNESIUM 1.5 mg/dL (2.0-2.9); POTASSIUM 3.3 mmol/L (3.5-5.1); SODIUM 142 mmol/L (136-145); TOTAL PROTEIN 5.6 g/dL (6.4-8.2); eGFR NON BLACK RACES > 60 (>60)
[2024-04-09] MEDS ORDERED: CONSULT PHARMACY - POTASSIUM & MAGNESIUM XX SCH (07:00)
[2024-04-09] MEDS: K-DUR TAB 20 MEQ PO SCH (08:47)
[2024-04-09] MEDS: MAG-OX TAB PO SCH (08:47)
[2024-04-09 09:48] VITALS: BP 171/79; PULSE 83; RESP 18; TEMP 98.1; O2SAT 97
--- NOTE | 2024-04-09 17:58 | PCM.DCPLAN ---
DISCHARGE SUMMARY Admission Date Date of Admission: 04/02/24 Discharge Date Discharge Date: 04/09/24 Admission Diagnoses (1) Altered mental status: Status: Acute (2) Compression fx, thoracic spine: Status: Acute (3) CHF (congestive heart failure): Status: Acute (4) Urinary tract infection: Status: Acute (5) Head injury due to trauma: Status: Acute (6) Weakness: Status: Acute Discharge Diagnoses Discharge Diagnosis: Resolved altered mental status, UTI- same as admission Discharge Medications Discharge Medications: Home Medication List atorvastatin 10 mg tablet 10 mg PO HS 04/02/24 [History] docusate sodium 100 mg capsule (Colace) 200 mg PO HS 04/02/24 [History] levocetirizine 5 mg tablet 5 mg PO HS 04/02/24 [History] levothyroxine 75 mcg tablet 75 mcg PO QDAY 04/02/24 [History] linaclotide 290 mcg capsule (Linzess) 290 mcg PO QDAY 04/02/24 [History] meclizine 12.5 mg tablet 12.5 mg PO BID 04/02/24 [History] meloxicam 7.5 mg tablet 7.5 mg PO BID 04/02/24 [History] metoprolol succinate 25 mg tablet,extended release 24 hr 25 mg PO HS 04/02/24 [History] olmesartan 40 mg-hydrochlorothiazide 25 mg tablet 1 tab PO QDAY 04/02/24 [History] acetaminophen 325 mg capsule (Tylenol) 650 mg PO Q6H PRN 30 days #60 caps 04/09/24 [Rx] Prescriptions: acetaminophen [Tylenol] DIAMOND ALARCON Hospital Course Latest Lab Results: Laboratory Last Values WBC 4.9 X10^3/uL (3.6-10.0) 04/09/24 05:52 RBC 3.75 X10^6/uL (3.5-5.4) 04/09/24 05:52 Hgb 10.5 g/dL (12.0-16.0) L 04/09/24 05:52 Hct 31.8 % (36.0-47.0) L 04/09/24 05:52 MCV 84.8 fL (80.0-100.0) 04/09/24 05:52 MCH 28.1 pg (27.0-34.0) 04/09/24 05:52 MCHC 33.1 g/dL (33.0-35.0) 04/09/24 05:52 RDW 14.1 % (11.6-16.5) 04/09/24 05:52 Plt Count 166 X10^3/uL (150.0-450.0) 04/09/24 05:52 MPV 8.4 fL (7.4-11.0) 04/09/24 05:52 Neut % (Auto) 55.0 % (42.0-75.0) 04/09/24 05:52 Lymph % (Auto) 27.5 % (21.0-51.0) 04/09/24 05:52 Lamb % (Auto) 13.9 % (0.0-13.0) H 04/09/24 05:52 Eos % (Auto) 2.9 % (0.9-2.9) 04/09/24 05:52 Baso % (Auto) 0.7 % (0.2-1.0) 04/09/24 05:52 Neut # (Auto) 2.7 x10^3/uL (2.2-4.8) 04/09/24 05:52 Lymph # (Auto) 1.4 X10^3/uL (1.3-2.9) 04/09/24 05:52 Lamb # (Auto) 0.7 x10^3/uL (0.3-0.8) 04/09/24 05:52 Eos # (Auto) 0.1 x10^3/uL (0.0-0.2) 04/09/24 05:52 Baso # (Auto) 0.0 X10^3/uL (0.0-0.1) 04/09/24 05:52 Absolute Nucleated RBC 0.1 /100WBC 04/09/24 05:52 Absolute Retic 0.0194 10^6/uL 04/06/24 05:13 Percent Retic 0.54 % (0.8-2.2) L 04/06/24 05:13 D-Dimer 2.36 ug/ml (0.0-0.57) H 04/06/24 05:13 Sodium 142 mmol/L (136-145) 04/09/24 05:52 Corrected Sodium TNP 04/09/24 05:52 Potassium 3.3 mmol/L (3.5-5.1) L 04/09/24 05:52 Chloride 107 mmol/L (98-107) 04/09/24 05:52 Carbon Dioxide 28.5 mmol/L (21-32) 04/09/24 05:52 BUN 8 mg/dL (7-18) 04/09/24 05:52 Creatinine 0.80 mg/dL (0.55-1.02) 04/09/24 05:52 Est GFR (MDRD) Af Amer > 60 (>60) 04/09/24 05:52 Est GFR (MDRD) Non-Af > 60 (>60) 04/09/24 05:52 Glucose 88 mg/dL (65-99) 04/09/24 05:52 Calcium 8.8 mg/dL (8.5-10.1) 04/09/24 05:52 Corrected Calcium 10.1 mg/dL (8.5-10.1) 04/09/24 05:52 Magnesium 1.5 mg/dL (2.0-2.9) L 04/09/24 05:52 Iron 77 ug/dL (50-175) 04/06/24 05:13 TIBC 220 ug/dL (250-450) L 04/06/24 05:13 Transferrin 175 mg/dL (202-364) L 04/06/24 05:13 Ferritin 82 ng/mL (8-252) 04/06/24 05:13 Total Bilirubin 0.20 mg/dL (0.2-1.0) 04/09/24 05:52 AST 21 Units/L (15-37) 04/09/24 05:52 ALT 18 Units/L (12-78) 04/09/24 05:52 Alkaline Phosphatase 56 Units/L (46-116) 04/09/24 05:52 Creatine Kinase 34 Units/L (26-192) 04/06/24 05:13 Troponin I High Sens 9.4 ng/L (4.0-60.0) 04/06/24 05:13 B-Natriuretic Peptide 299 pg/mL (0-79) H 04/07/24 04:53 Total Protein 5.6 g/dL (6.4-8.2) L 04/09/24 05:52 Albumin 2.4 g/dL (3.4-5.0) L 04/09/24 05:52 Globulin 3.2 g/dL (2.5-4.5) 04/09/24 05:52 Albumin/Globulin Ratio 0.8 Ratio (1.1-2.1) L 04/09/24 05:52 Triglycerides 55 mg/dL (0-150) 04/06/24 05:13 Cholesterol 125 mg/dL (0-200) 04/06/24 05:13 LDL Cholesterol, Calc 68 mg/dL (0-100) 04/06/24 05:13 HDL Cholesterol 46 mg/dL (40-60) 04/06/24 05:13 Cholesterol/HDL Ratio 2.7 (0.0-5.0) 04/06/24 05:13 Lipase 70 Units/L (16-77) 04/02/24 18:00 Vitamin B12 621 pg/mL (193-986) 04/06/24 05:13 Folate 15.0 ng/mL (>8.6) 04/06/24 05:13 TSH 3rd Generation 1.046 uIU/mL (0.358-3.74) 04/06/24 05:13 Specimen Type Clean catch urine 04/02/24 18:55 Urine Color Yellow (YELLOW) 04/02/24 18:55 Urine Appearance Cloudy (CLEAR) 04/02/24 18:55 Urine pH 6.0 (5.0 - 8.0) 04/02/24 18:55 Ur Specific [place] 1.015 (1.000-1.030) 04/02/24 18:55 Urine Protein 2+ (NEGATIVE) 04/02/24 18:55 Urine Glucose (UA) Negative (NEGATIVE) 04/02/24 18:55 Urine Ketones Negative (NEGATIVE) 04/02/24 18:55 Urine Blood 2+ (NEGATIVE) 04/02/24 18:55 Urine Nitrite Negative (NEGATIVE) 04/02/24 18:55 Urine Bilirubin Negative (NEGATIVE) 04/02/24 18:55 Urine Urobilinogen 1+ (NORMAL) 04/02/24 18:55 Ur Leukocyte Esterase 3+ (NEGATIVE) 04/02/24 18:55 Urine RBC 3-5 /HPF (0-3) A 04/02/24 18:55 Urine WBC Tntc /HPF (0-5) A 04/02/24 18:55 Ur Squamous Epith Cells Numerous /HPF (NEGATIVE) 04/02/24 18:55 Ur Transition Epith Cell Moderate /HPF (NEGATIVE) 04/02/24 18:55 Urine Bacteria 4+ /HPF (NEGATIVE) 04/02/24 18:55 Hyaline Casts Few /LPF (NEGATIVE) 04/02/24 18:55 Ur Culture Indicated? No/not indicated 04/02/24 18:55 Infect Dis PCR Plus See scanned report 04/04/24 14:05 Hospital Course: Patient is an 88 year old white female patient who was an ER admission on 04/02/24 after she was brought in by family members who stated that she was found on floor that morning with confusion and intractable back pain. She was hypertensive on arrival with UTI. We obtained a CT cervical spine, chest xray, ct head, left hip xray that showed no acute findings. Admission labs: wbc 9.9, hgb 11.6, bun 31/creatinine 1.53. UA positive for 2+ blood, 3+ leukocytes, negative nitrates and sent for a culture. Upon admission, she was started on IV hydration, IV hydration, and pain control. On 04/06/24, we obtained a repeat chest xray that showed no acute findings, a tspine ct that showed "Worsening compression fractures of T2 and T4 since prior study. T3 compression fracture is unchanged. No new compression fractures are seen" and a CT pelvis that showed "No fracture or dislocation is seen. Prominent arthritic changes are seen in the hips and there may be associated erosions. Moderate central canal lumbar stenosis is seen at L3-4 and L4-5." We also obtained a d-dimer- 2.36 and BNP elevated at 330. She had an ECHO on 04/07 that revealed an EF of 55-60%. She has been treated with IV lasix. Repeat BNP yesterday was at 299. We obtained a repeat chest xray this morning that showed mildly hyperinflated lungs but free of acute infiltrates. AM labs: wbc 4.9, hgb 10.5, bun 8/creatinine 0.80. Patient is unable to care for herself at home and is requiring assistance with all ADL's. She is in need of rehab placement for therapy and medication management. This has been discussed with patient and family. They are agreeable and transfer to [place] has been arranged. She is stable for discharge, so we will allow her to discharge to [place] as planned with new orders for PRN Tylenol pain control. Please see discharge plan for list of discharge medications and modifications that we made, electronic medical record for diagnostic tests and labs. The patient was instructed to return to the ER if condition changed or worsened unexpectedly.
== END 2024-04-09 10:43 | DRG 690 ==
LOC: MED/SURG 17:26 → ER 17:26 → MED/SURG 22:20
PROVIDERS: ADMIT Internal Medicine; ATTEND Internal Medicine
DX: R60.0 Localized edema; R26.81 Unsteadiness on feet; Z59.86 Financial insecurity; N17.8 Other acute kidney failure; Z59.10 Inadequate housing, unspecified; Z59.41 Food insecurity; M54.2 Cervicalgia; W18.39XA Other fall on same level, initial encounter; M48.54XA Collapsed vertebra, not elsewhere classified, thoracic region, initial encounter for fracture; R53.1 Weakness; I11.0 Hypertensive heart disease with heart failure; N39.0 Urinary tract infection, site not specified; Z59.82 Transportation insecurity; Z74.1 Need for assistance with personal care; Y92.89 Other specified places as the place of occurrence of the external cause; R51.9 Headache, unspecified; R41.82 Altered mental status, unspecified; E86.0 Dehydration; E87.6 Hypokalemia; I50.9 Heart failure, unspecified; S09.8XXA Other specified injuries of head, initial encounter; M25.552 Pain in left hip; R06.02 Shortness of breath; E83.42 Hypomagnesemia

== ENCOUNTER 2024-06-09 11:25 | Inpatient (IN) ==
[2024-06-09 11:42] VITALS: BMI 20.7
[2024-06-09] MEDS: OFIRMEV IV 1000 MG VIAL 1,000 MG/100 ML VIAL IV ONE (11:49)
[2024-06-09] MEDS: ZOFRAN INJ 4 MG VIAL IVP ONE (11:49)
[2024-06-09] MEDS: NS 500 ML IV 500 ML IV ONE (11:49)
--- NOTE | 2024-06-09 11:52 | DR.AMS ---
HPI Time Seen Time Seen by Provider: 06/09/24 11:37 PCP Primary Care Physician: Diamond Alarcon Complaint Cheif Complaint Doctors Comments: 88-year-old female brought in by EMS for evaluation. Home health nurse found the patient to be altered this a.m.. Patient is awake, able to answer questions, having generalized weakness. She was found to be in a puddle of urine, there is a foul odor to the urine. Running a fever here on arrival.. Patient appears confused. Answers questions, but not reliably. Denied vomiting and has bilious staining around her mouth. Denied pain, then indicates her lower abdomen is hurting. Denies cough, congestion, sore throat, pain. Denies diarrhea. No headache. Chief Complaint:: Ems states that home health reported that pt was lethargic this morning. Pt is awake but drowsy but is able to answer questions appropriately. Pt states that she started feeling "cold" last night. Per EMS pt was laying in a puddle of urine that had a stong odor. COVID-19 Coronavirus risk:travel/contact w/high risk person: No Has patient experienced Coronavirus symptoms: Yes Coronavirus symptoms experienced: Fever Reviewed Nurses Notes Reviewed: Yes Source History Provided: Patient and EMS Mode of Arrival Mode of Arrival: EMS Timing Onset of Chief Complaint: 06/09/24 PMH PMH Past Medical History: Yes Past Medical History: Arthritis, CHF, Dyslipidemia, Hypertension, Hypothyroidism and Kidney Stones Past Medical History Comment: Degenerative Disc Disease Past Surgical History: Yes Surgical History: Hysterectomy and Ortho Surgery Past Surgical History Comment: leg surgery Family History History of Family Medical Conditions: Yes Family Medical History: Heart Failure and Hypertension Social History Does patient currently use any type of tobacco product: No Have you used tobacco products in the last 12 months: No Type of Tobacco Use: None Does any household member use tobacco: No Alcohol Use: None Do you use any recreational Drugs:: No Lives With: Family Lives Where: Home Travel Risk Coronavirus risk:travel/contact w/high risk person: No Has patient experienced Coronavirus symptoms: Yes Coronavirus symptoms experienced: Fever Infectious screening In the last 2 months have you had wt loss of >10#?: NO Have you had fever, night sweats or hemotysis?: No Have you traveled outside the country in the last 6 months?: No Isolation: Droplet ROS Review of Systems Unable to Obtain Due To: Altered mental status PE Vitals Vital Signs: Temp Pulse Resp BP Pulse Ox O2 Del Method 06/09/24 14:15 90 36 H 99 06/09/24 14:00 132/63 06/09/24 14:00 91 H 29 H 98 06/09/24 13:45 93 H 39 H 98 06/09/24 13:30 91 H 36 H 98 06/09/24 13:30 139/63 06/09/24 13:24 99.4 F 06/09/24 13:15 92 H 29 H 99 06/09/24 13:00 95 H 28 H 99 06/09/24 13:00 127/60 06/09/24 12:45 100 H 30 H 97 06/09/24 12:30 97 H 23 99 06/09/24 12:30 144/63 06/09/24 12:15 101 H 24 96 06/09/24 12:00 139/64 06/09/24 12:00 102 H 28 H 06/09/24 11:45 105 H 17 97 06/09/24 11:34 109 H 25 H 96 06/09/24 11:35 102.2 F H 107 H 24 134/63 96 Room Air General General Appearance: Alert and In No Apparent Distress Head Head Exam: Normal Inspection, Atraumatic and Normocephalic Eyes Eye exam: PERRL and EOMI ENT ENT Exam: Other (Dry mucous membranes) Neck Neck Exam: Normal Inspection and Full ROM; negative Tenderness Respiratory Respiratory Exam: Normal Lung Sounds Bilat; negative Accessory Muscle Use or Respiratory Distress Cardiovascular Cardiovascular Exam: Regular Rate, Normal Rhythm, Tachycardia and Normal Heart Sounds Abdominal Exam Abdominal Exam: Normal Bowel Sounds, Soft and Tenderness (Suprapubic region) Extremities Extremities Exam: Normal Inspection; negative Edema COURSE Treatment Treatment: 88-year-old female brought in for altered mental status, weakness. Initiated. Patient given IV fluids.. CBC showed mildly elevated white count 11,300. Chemistries show markedly low potassium at 2.2. Patient was given potassium rider IV urinalysis positive for nitrites, leukocyte Estrace, 2+ bacteria. Has 5-10 whites per high-power field. Lactic acid acceptable. COVID was negative. Magnesium also low at 0.9.. Recommend admitting the patient for continued treatment of acute UTI, hypokalemia, hypomagnesia. ROR Labs Reviewed 06/09/24 11:50 06/09/24 11:50 Laboratory: WBC 11.3 X10^3/uL (3.6-10.0) H 06/09/24 11:50 RBC 4.67 X10^6/uL (3.5-5.4) 06/09/24 11:50 Hgb 12.9 g/dL (12.0-16.0) 06/09/24 11:50 Hct 39.1 % (36.0-47.0) 06/09/24 11:50 MCV 83.6 fL (80.0-100.0) 06/09/24 11:50 MCH 27.5 pg (27.0-34.0) 06/09/24 11:50 MCHC 32.9 g/dL (33.0-35.0) L 06/09/24 11:50 RDW 14.5 % (11.6-16.5) 06/09/24 11:50 Plt Count 138 X10^3/uL (150.0-450.0) L 06/09/24 11:50 MPV 8.5 fL (7.4-11.0) 06/09/24 11:50 Neut % (Auto) 88.3 % (42.0-75.0) H 06/09/24 11:50 Lymph % (Auto) 4.4 % (21.0-51.0) L 06/09/24 11:50 [place] % (Auto) 7.1 % (0.0-13.0) 06/09/24 11:50 Eos % (Auto) 0.0 % (0.9-2.9) L 06/09/24 11:50 Baso % (Auto) 0.2 % (0.2-1.0) 06/09/24 11:50 Neut # (Auto) 10.0 x10^3/uL (2.2-4.8) H 06/09/24 11:50 Lymph # (Auto) 0.5 X10^3/uL (1.3-2.9) L 06/09/24 11:50 [place] # (Auto) 0.8 x10^3/uL (0.3-0.8) 06/09/24 11:50 Eos # (Auto) 0.0 x10^3/uL (0.0-0.2) 06/09/24 11:50 Baso # (Auto) 0.0 X10^3/uL (0.0-0.1) 06/09/24 11:50 Absolute Nucleated RBC 0.0 /100WBC 06/09/24 11:50 Sodium 135 mmol/L (136-145) L 06/09/24 11:50 Corrected Sodium 135 mmol/L (136-145) L 06/09/24 11:50 Potassium 2.2 mmol/L (3.5-5.1) L* 06/09/24 11:50 Chloride 96 mmol/L (98-107) L 06/09/24 11:50 Carbon Dioxide 28.5 mmol/L (21-32) 06/09/24 11:50 BUN 14 mg/dL (7-18) 06/09/24 11:50 Creatinine 1.11 mg/dL (0.55-1.02) H 06/09/24 11:50 Est GFR (MDRD) Af Amer 60 (>60) 06/09/24 11:50 Est GFR (MDRD) Non-Af 49 (>60) L 06/09/24 11:50 Glucose 114 mg/dL (65-99) H 06/09/24 11:50 Lactic Acid 1.0 mmol/L (0.4-2.0) 06/09/24 11:50 Calcium 9.3 mg/dL (8.5-10.1) 06/09/24 11:50 Corrected Calcium 10.0 mg/dL (8.5-10.1) 06/09/24 11:50 Magnesium 0.9 mg/dL (2.0-2.9) L 06/09/24 11:50 Total Bilirubin 1.00 mg/dL (0.2-1.0) 06/09/24 11:50 AST 18 Units/L (15-37) 06/09/24 11:50 ALT 16 Units/L (12-78) 06/09/24 11:50 Alkaline Phosphatase 103 Units/L (46-116) 06/09/24 11:50 Total Protein 7.0 g/dL (6.4-8.2) 06/09/24 11:50 Albumin 3.1 g/dL (3.4-5.0) L 06/09/24 11:50 Globulin 3.9 g/dL (2.5-4.5) 06/09/24 11:50 Albumin/Globulin Ratio 0.8 Ratio (1.1-2.1) L 06/09/24 11:50 Specimen Type Catherized urine 06/09/24 11:55 Urine Color Yellow (YELLOW) 06/09/24 11:55 Urine Appearance Slightly hazy (CLEAR) 06/09/24 11:55 Urine pH 6.0 (5.0 - 8.0) 06/09/24 11:55 Ur Specific [place] 1.010 (1.000-1.030) 06/09/24 11:55 Urine Protein 3+ (NEGATIVE) 06/09/24 11:55 Urine Glucose (UA) Negative (NEGATIVE) 06/09/24 11:55 Urine Ketones 1+ (NEGATIVE) 06/09/24 11:55 Urine Blood 4+ (NEGATIVE) 06/09/24 11:55 Urine Nitrite Positive (NEGATIVE) 06/09/24 11:55 Urine Bilirubin Negative (NEGATIVE) 06/09/24 11:55 Urine Urobilinogen Normal (NORMAL) 06/09/24 11:55 Ur Leukocyte Esterase 2+ (NEGATIVE) 06/09/24 11:55 Urine RBC 20-30 /HPF (0-3) A 06/09/24 11:55 Urine WBC 5-10 /HPF (0-5) A 06/09/24 11:55 Ur Squamous Epith Cells Rare /HPF (NEGATIVE) 06/09/24 11:55 Urine Bacteria 2+ /HPF (NEGATIVE) 06/09/24 11:55 Ur Culture Indicated? Yes/culture set up 06/09/24 11:55 SARS-CoV-2 (PCR) Negative (NEGATIVE) 06/09/24 11:49 Opioid Opioid Risk Tool Age ([place] if 16-45): No History of Preadolescent Sexual Abuse: No Total: 0 Total Score Risk Category: Low Risk Copyright: Andrew MARY predicting aberrant behaviors Discharge Plan Diagnosis Discharge Problem: Acute UTI, Altered mental status, Hypomagnesemia, Acute hypokalemia Discharge Plan Patient Disposition: 09 ADMITTED INPATIENT Condition: Stable Prescriptions: No Action atorvastatin 10 mg tablet 10 mg PO HS meclizine 12.5 mg tablet 12.5 mg PO BID levothyroxine 75 mcg tablet 75 mcg PO QDAY meloxicam 7.5 mg tablet 7.5 mg PO BID metoprolol succinate 25 mg tablet extended release 24 hr 25 mg PO HS olmesartan-hydrochlorothiazide 40-25 mg tablet 1 tab PO QDAY levocetirizine 5 mg tablet 5 mg PO HS Linzess 290 mcg capsule 290 mcg PO QDAY tramadol 50 mg tablet 50 mg PO TID PRN potassium chloride 20 mEq tablet,ER particles/crystals 20 meq PO QDAY amoxicillin-pot clavulanate 875-125 mg tablet 1 tab PO BID Health Concerns: Post Hospitalization: new medications and changes needed to prevent readmission or further decline. Pt educated and given instructions on all concerns. Plan of Treatment: Continue with present treatment and follow up plan. Pt is to keep follow up appointment as instructed and take medications as ordered. Orders to Discharge Patient Discharge Orders: Transfer (Routine); Ordered 06/09/24 Ordered By: Alessio Cardenas Follow ups/Referrals Follow ups/Referrals: DIAMOND ALARCON [Primary Care Provider] - 3 days
[2024-06-09 12:07] LABS: BASOPHILS % (AUTO) 0.2 % (0.2-1.0); HEMATOCRIT 39.1 % (36.0-47.0); HEMOGLOBIN 12.9 g/dL (12.0-16.0); LYMPHOCYTES # (AUTO) 0.5 X10^3/uL (1.3-2.9); LYMPHOCYTES % (AUTO) 4.4 % (21.0-51.0); MEAN CORPUSCULAR HEMOGLOBIN 27.5 pg (27.0-34.0); MEAN CORPUSCULAR HGB CONC 32.9 g/dL (33.0-35.0); MEAN CORPUSCULAR VOLUME 83.6 fL (80.0-100.0); MEAN PLATELET VOLUME 8.5 fL (7.4-11.0); MONOCYTES # (AUTO) 0.8 x10^3/uL (0.3-0.8); MONOCYTES % (AUTO) 7.1 % (0.0-13.0); NEUTROPHILS % (AUTO) 88.3 % (42.0-75.0); PLATELET COUNT 138 X10^3/uL (150.0-450.0); RED BLOOD COUNT 4.67 X10^6/uL (3.5-5.4); RED CELL DISTRIBUTION WIDTH 14.5 % (11.6-16.5); WHITE BLOOD COUNT 11.3 X10^3/uL (3.6-10.0)
[2024-06-09 12:19] LABS: ALBUMIN 3.1 g/dL (3.4-5.0); CALCIUM 9.3 mg/dL (8.5-10.1); CARBON DIOXIDE 28.5 mmol/L (21-32); CREATININE 1.11 mg/dL (0.55-1.02)
[2024-06-09 12:21] LABS: BILIRUBIN,URINE NEGATIVE (NEGATIVE); BLOOD/HEMOGLOBIN,URINE 4+ (NEGATIVE); GLUCOSE, URINE NEGATIVE (NEGATIVE); KETONES,URINE 1+ (NEGATIVE); LEUKOCYTE ESTERASE ,URINE 2+ (NEGATIVE); NITRITES,URINE POSITIVE (NEGATIVE); PROTEIN,URINE 3+ (NEGATIVE); UROBILINOGEN,URINE NORMAL (NORMAL)
[2024-06-09 12:22] LABS: POTASSIUM 2.2 mmol/L (3.5-5.1)
[2024-06-09] MEDS: K-RIDER 10 MEQ/100 ML WATER 10 MEQ/100 ML BAG IV ONE (12:30)
[2024-06-09 12:33] LABS: APPEARANCE,URINE SLIGHTLY HAZY (CLEAR); COLOR,URINE YELLOW (YELLOW); RBC,URINE 20-30 /HPF (0-3)
[2024-06-09 12:34] LABS: BACTERIA,URINE 2+ /HPF (NEGATIVE); SQUAMOUS EPITHELIAL CELL,UR RARE /HPF (NEGATIVE)
[2024-06-09] MEDS: ROCEPHIN VIAL 1 GRAM IVP ONE (13:23)
--- NOTE | 2024-06-09 14:15 | RAD ---
EXAM: CHEST, 1 VIEW HISTORY: FEVER; COMPARISON: April 08 TECHNIQUE: Portable chest radiograph FINDINGS: No consolidating pulmonary infiltrates are identified. The heart size is normal. The pleural spaces are clear. Skin folds overlie the left chest wall and there is also artifact from overlying EKG renae ds and external sheet. No acute osseous abnormalities are identified. A high-riding right humeral h ead may be associated with a chronic rotator cuff tear. IMPRESSION: No organized pulmonary infiltrates identified. THIS IS AN ELECTRONICALLY VERIFIED FINAL REPORT 06/09/2024 2:11 PM - Electronically signed by Min Gill MD
[2024-06-09] MEDS: CONSULT PHARMACY - POTASSIUM & MAGNESIUM XX SCH (16:01)
[2024-06-09] MEDS: ROCEPHIN VIAL 1 GRAM 1 G in NS 100 ML IV 100 ML IV SCH (16:13)
[2024-06-09] MEDS: MAGNESIUM SULFATE 1 GRAM/100 mL PREMIX 1 G/100 ML BAG IV SCH (16:52)
[2024-06-09] MEDS: POTASSIUM CHLORIDE LIQ PO SCH (16:52)
[2024-06-09] MEDS: D5 NS + KCL 20 MEQ/L 1,000 ML IV SCH (16:52)
[2024-06-09] MEDS: ZOFRAN INJ 4 MG VIAL IVP PRN (18:11)
[2024-06-10] MEDS: TYLENOL 325 MG TAB PO PRN (03:41)
[2024-06-10 06:22] LABS: BASOPHILS % (AUTO) 0.2 % (0.2-1.0); HEMATOCRIT 34.2 % (36.0-47.0); HEMOGLOBIN 11.5 g/dL (12.0-16.0); LYMPHOCYTES # (AUTO) 0.6 X10^3/uL (1.3-2.9); LYMPHOCYTES % (AUTO) 3.9 % (21.0-51.0); MEAN CORPUSCULAR HEMOGLOBIN 27.7 pg (27.0-34.0); MEAN CORPUSCULAR HGB CONC 33.5 g/dL (33.0-35.0); MEAN CORPUSCULAR VOLUME 82.6 fL (80.0-100.0); MONOCYTES # (AUTO) 0.8 x10^3/uL (0.3-0.8); MONOCYTES % (AUTO) 5.4 % (0.0-13.0); NEUTROPHILS # (AUTO) 13.3 x10^3/uL (2.2-4.8); NEUTROPHILS % (AUTO) 90.5 % (42.0-75.0); PLATELET COUNT 122 X10^3/uL (150.0-450.0); RED BLOOD COUNT 4.14 X10^6/uL (3.5-5.4); RED CELL DISTRIBUTION WIDTH 14.8 % (11.6-16.5); WHITE BLOOD COUNT 14.7 X10^3/uL (3.6-10.0)
[2024-06-10 06:38] LABS: ALBUMIN 2.4 g/dL (3.4-5.0); CALCIUM 8.5 mg/dL (8.5-10.1); CARBON DIOXIDE 24.5 mmol/L (21-32); COR CA(FOR HYPOALB) 9.8 mg/dL (8.5-10.1); CREATININE 1.39 mg/dL (0.55-1.02); MAGNESIUM 2.9 mg/dL (2.0-2.9)
[2024-06-10 06:46] LABS: POTASSIUM 2.7 mmol/L (3.5-5.1)
[2024-06-10 06:54] LABS: BAND NEUTROPHILS % 19 % (0-10); PLATELET MORPHOLOGY COMMENT NORMAL (NORMAL)
[2024-06-10] MEDS ORDERED: CONSULT PHARMACY - POTASSIUM & MAGNESIUM XX SCH ×2 (07:00)
[2024-06-10] MEDS ORDERED: OLMESARTAN HYDROCHLOROTHIAZIDE PO SCH (09:00)
[2024-06-10] MEDS ORDERED: PEPCID 20 MG VIAL IVP ONE (09:12)
[2024-06-10] MEDS: BENICAR PO SCH (09:52)
[2024-06-10] MEDS: SYNTHROID 75 mcg TAB PO SCH (09:53)
[2024-06-10] MEDS: HYDROCHLOROTHIAZIDE 25 MG TAB PO SCH (09:53)
[2024-06-10] MEDS: K-DUR TAB 20 MEQ PO SCH (09:53)
[2024-06-10] MEDS: LOVENOX INJ 30 MG SYR SC SCH (09:54)
[2024-06-10] MEDS ORDERED: PROTONIX INJ 40 MG VIAL IVP SCH (10:00)
[2024-06-10] MEDS: ULTRAM PO PRN (11:15)
[2024-06-10] MEDS: PEPCID 20 MG VIAL 20 MG in NS 50 ML IV 50 ML IV NR (11:18)
[2024-06-10] MEDS: MERREM VIAL 500 MG in NS 50 ML IV 50 ML IV SCH (13:51)
--- NOTE | 2024-06-10 17:05 | DR.H&P ---
H&P History & Physical for Day of: H&P Date: 06/09/24 Chief Complaint Chief Complaint: AMS History of Present Illness History of Present Illness: 88-year-old female brought in by EMS for evaluation. Home health nurse found the patient to be altered this a.m.. Patient is awake, able to answer questions, having generalized weakness. She was found to be in a puddle of urine, there is a foul odor to the urine. Running a fever here on arrival.. Patient appears confused. Answers questions, but not reliably. Denied vomiting and has bilious staining around her mouth. Denied pain, then indicates her lower abdomen is hurting. Denies cough, congestion, sore throat, pain. Denies diarrhea. No headache. Past Medical History Past Medical History: Arthritis, CHF, Dyslipidemia, Hypertension, Hypothyroidism and Kidney Stones Past Surgical History Surgical History: Hysterectomy and Ortho Surgery Family History Family Medical History: [place], Heart Failure and Hypertension Social History Does patient currently use any type of tobacco product: No Have you used tobacco products in the last 12 months: No Type of Tobacco Use: None Does any household member use tobacco: No Alcohol Use: None Drug Use: None Medications Home Medications: Home Medications Medication Instructions Recorded Confirmed Type atorvastatin 10 mg tablet 10 mg PO HS 04/02/24 06/09/24 History levocetirizine 5 mg tablet 5 mg PO HS 04/02/24 06/09/24 History levothyroxine 75 mcg tablet 75 mcg PO QDAY 04/02/24 06/09/24 History linaclotide 290 mcg capsule 290 mcg PO QDAY 04/02/24 06/09/24 History (Juanas) meclizine 12.5 mg tablet 12.5 mg PO BID 04/02/24 06/09/24 History meloxicam 7.5 mg tablet 7.5 mg PO BID 04/02/24 06/09/24 History metoprolol succinate 25 mg 25 mg PO HS 04/02/24 06/09/24 History tablet,extended release 24 hr olmesartan 40 1 tab PO QDAY 04/02/24 06/09/24 History mg-hydrochlorothiazide 25 mg tablet tramadol 50 mg tablet 50 mg PO TID PRN 05/14/24 06/09/24 History amoxicillin 875 mg-potassium 1 tab PO BID 06/09/24 06/09/24 History clavulanate 125 mg tablet potassium chloride 20 mEq 20 meq PO QDAY 06/09/24 06/09/24 History tablet,extended release(part/cryst) Allergies Allergies Allergy/AdvReac Type Severity Reaction Status Date / Time No Known Allergies Allergy Verified 05/14/24 20:26 Labs 06/10/24 04:59 06/10/24 04:59 Labs: 06/09/24 11:50 Blood Blood Culture Gram Stain - Final 06/09/24 11:50 Blood Blood Culture - Preliminary 06/09/24 12:00 Blood Blood Culture Gram Stain - Final 06/09/24 12:00 Blood Blood Culture - Preliminary 06/09/24 11:55 Urine,Catheterized Urine Culture - Preliminary Laboratory WBC 14.7 X10^3/uL (3.6-10.0) H 06/10/24 04:59 RBC 4.14 X10^6/uL (3.5-5.4) 06/10/24 04:59 Hgb 11.5 g/dL (12.0-16.0) L 06/10/24 04:59 Hct 34.2 % (36.0-47.0) L 06/10/24 04:59 MCV 82.6 fL (80.0-100.0) 06/10/24 04:59 MCH 27.7 pg (27.0-34.0) 06/10/24 04:59 MCHC 33.5 g/dL (33.0-35.0) 06/10/24 04:59 RDW 14.8 % (11.6-16.5) 06/10/24 04:59 Plt Count 122 X10^3/uL (150.0-450.0) L 06/10/24 04:59 Plt Count Comment Decreased (ADEQUATE) A 06/10/24 04:59 MPV 9.0 fL (7.4-11.0) 06/10/24 04:59 Neut % (Auto) 90.5 % (42.0-75.0) H 06/10/24 04:59 Lymph % (Auto) 3.9 % (21.0-51.0) L 06/10/24 04:59 [place] % (Auto) 5.4 % (0.0-13.0) 06/10/24 04:59 Eos % (Auto) 0.0 % (0.9-2.9) L 06/10/24 04:59 Baso % (Auto) 0.2 % (0.2-1.0) 06/10/24 04:59 Neut # (Auto) 13.3 x10^3/uL (2.2-4.8) H 06/10/24 04:59 Lymph # (Auto) 0.6 X10^3/uL (1.3-2.9) L 06/10/24 04:59 [place] # (Auto) 0.8 x10^3/uL (0.3-0.8) 06/10/24 04:59 Eos # (Auto) 0.0 x10^3/uL (0.0-0.2) 06/10/24 04:59 Baso # (Auto) 0.0 X10^3/uL (0.0-0.1) 06/10/24 04:59 Absolute Nucleated RBC 0.0 /100WBC 06/10/24 04:59 Total Counted 100 06/10/24 04:59 Neutrophils % (Manual) 73 % (39-76) 06/10/24 04:59 Band Neutrophils % 19 % (0-10) H 06/10/24 04:59 Lymphocytes % (Manual) 3 % (13-43) L 06/10/24 04:59 Monocytes % (Manual) 5 % (4-9) 06/10/24 04:59 Plt Morphology Comment Normal (NORMAL) 06/10/24 04:59 RBC Morphology Normal (NORMAL) 06/10/24 04:59 Sodium 131 mmol/L (136-145) L 06/10/24 04:59 Corrected Sodium 132 mmol/L (136-145) L 06/10/24 04:59 Potassium 2.7 mmol/L (3.5-5.1) L* 06/10/24 04:59 Chloride 98 mmol/L (98-107) 06/10/24 04:59 Carbon Dioxide 24.5 mmol/L (21-32) 06/10/24 04:59 BUN 18 mg/dL (7-18) 06/10/24 04:59 Creatinine 1.39 mg/dL (0.55-1.02) H 06/10/24 04:59 Est GFR (MDRD) Af Amer 46 (>60) L 06/10/24 04:59 Est GFR (MDRD) Non-Af 38 (>60) L 06/10/24 04:59 Glucose 160 mg/dL (65-99) H 06/10/24 04:59 Lactic Acid 1.0 mmol/L (0.4-2.0) 06/09/24 11:50 Calcium 8.5 mg/dL (8.5-10.1) 06/10/24 04:59 Corrected Calcium 9.8 mg/dL (8.5-10.1) 06/10/24 04:59 Magnesium 2.9 mg/dL (2.0-2.9) 06/10/24 04:59 Total Bilirubin 0.50 mg/dL (0.2-1.0) 06/10/24 04:59 AST 19 Units/L (15-37) 06/10/24 04:59 ALT 15 Units/L (12-78) 06/10/24 04:59 Alkaline Phosphatase 105 Units/L (46-116) 06/10/24 04:59 Total Protein 6.0 g/dL (6.4-8.2) L 06/10/24 04:59 Albumin 2.4 g/dL (3.4-5.0) L 06/10/24 04:59 Globulin 3.6 g/dL (2.5-4.5) 06/10/24 04:59 Albumin/Globulin Ratio 0.7 Ratio (1.1-2.1) L 06/10/24 04:59 Specimen Type Catherized urine 06/09/24 11:55 Urine Color Yellow (YELLOW) 06/09/24 11:55 Urine Appearance Slightly hazy (CLEAR) 06/09/24 11:55 Urine pH 6.0 (5.0 - 8.0) 06/09/24 11:55 Ur Specific [place] 1.010 (1.000-1.030) 06/09/24 11:55 Urine Protein 3+ (NEGATIVE) 06/09/24 11:55 Urine Glucose (UA) Negative (NEGATIVE) 06/09/24 11:55 Urine Ketones 1+ (NEGATIVE) 06/09/24 11:55 Urine Blood 4+ (NEGATIVE) 06/09/24 11:55 Urine Nitrite Positive (NEGATIVE) 06/09/24 11:55 Urine Bilirubin Negative (NEGATIVE) 06/09/24 11:55 Urine Urobilinogen Normal (NORMAL) 06/09/24 11:55 Ur Leukocyte Esterase 2+ (NEGATIVE) 06/09/24 11:55 Urine RBC 20-30 /HPF (0-3) A 06/09/24 11:55 Urine WBC 5-10 /HPF (0-5) A 06/09/24 11:55 Ur Squamous Epith Cells Rare /HPF (NEGATIVE) 06/09/24 11:55 Urine Bacteria 2+ /HPF (NEGATIVE) 06/09/24 11:55 Ur Culture Indicated? Yes/culture set up 06/09/24 11:55 SARS-CoV-2 (PCR) Negative (NEGATIVE) 06/09/24 11:49 Review of Systems Constitutional: Fever and Weakness Eyes: No Symptoms Reported ENT: No Symptoms Reported Respiratory: No Symptoms Reported Cardiovascular: Edema Gastrointestinal: Vomiting Genitourinary: Frequency Musculoskeletal: Back Pain and Leg Pain Skin: No Symptoms Reported Neurological: Weakness and Confusion Physical Exam Vital Signs: Vital Signs Temperature 97.9 F Temperature 98.3 F Temperature 101.2 F Pulse Rate [Brachial] 93 Pulse Rate [Brachial] 108 Respiratory Rate 19 Respiratory Rate 20 Respiratory Rate 18 Respiratory Rate 20 Respiratory Rate 20 Respiratory Rate 20 Blood Pressure [Right Arm] 129/60 Blood Pressure [Right Arm] 165/80 O2 Sat by Pulse Oximetry 96 O2 Sat by Pulse Oximetry 96 Oriented: Person; negative Time or Place Eyes: Normal Ear: Normal Nose: Normal Throat: Dry Respiratory: Diminished Throughout Cardiovascular: Normal : Normal Auscultation: Bowel Sounds: Normal Palpation: Normal Tenderness: Normal Skin: Decreased Turgur Musculoskeletal: Back:Thoracic, Back:Lumbar and Motor Deficit Mood Description: Depressed Speech Pattern: Inappropriate and Delayed Assessment/Plan (1) Altered mental status: Status: Acute Plan: ADMIT, BLOOD AND URINE CULTURES ON ADMISSION IV HYDRATION WITH ELECTROLYTE REPLACEMENT. IV ATBX THERAPY BP CONTROL, CXR ON ADMISSION VERIFY HOME MEDICATION (2) Acute UTI: Status: Acute (3) Acute hypokalemia: Status: Acute (4) CHF (congestive heart failure): Status: Acute (5) Fall at home: Qualifiers: Encounter type: initial encounter Qualified Code(s): W19.XXXA - Unspecified fall, initial encounter Status: Acute
[2024-06-10] MEDS ORDERED: PATIENT'S HOME MEDICATION (Levocetirizine 5 mg tablet) PO SCH (21:00)
[2024-06-10] MEDS: TOPROL XL PO SCH (21:32)
[2024-06-10] MEDS: LIPITOR TAB 10 MG PO SCH (21:32)
[2024-06-11 06:38] LABS: BASOPHILS % (AUTO) 0.2 % (0.2-1.0); EOSINOPHILS % (AUTO) 0.1 % (0.9-2.9); HEMATOCRIT 32.1 % (36.0-47.0); HEMOGLOBIN 10.8 g/dL (12.0-16.0); LYMPHOCYTES # (AUTO) 0.6 X10^3/uL (1.3-2.9); LYMPHOCYTES % (AUTO) 5.9 % (21.0-51.0); MEAN CORPUSCULAR HGB CONC 33.7 g/dL (33.0-35.0); MEAN CORPUSCULAR VOLUME 83.2 fL (80.0-100.0); MEAN PLATELET VOLUME 9.5 fL (7.4-11.0); MONOCYTES # (AUTO) 0.8 x10^3/uL (0.3-0.8); MONOCYTES % (AUTO) 7.8 % (0.0-13.0); NEUTROPHILS # (AUTO) 8.3 x10^3/uL (2.2-4.8); PLATELET COUNT 98 X10^3/uL (150.0-450.0); RED BLOOD COUNT 3.85 X10^6/uL (3.5-5.4); RED CELL DISTRIBUTION WIDTH 14.8 % (11.6-16.5); WHITE BLOOD COUNT 9.6 X10^3/uL (3.6-10.0)
[2024-06-11 06:54] LABS: ALANINE AMINOTRANSFERASE 14 Units/L (12-78); ALBUMIN 2.2 g/dL (3.4-5.0); ALKALINE PHOSPHATASE 87 Units/L (46-116); ASPARTATE AMINO TRANSFERASE 17 Units/L (15-37); BLOOD UREA NITROGEN 21 mg/dL (7-18); CALCIUM 8.1 mg/dL (8.5-10.1); CARBON DIOXIDE 27.5 mmol/L (21-32); CHLORIDE 104 mmol/L (98-107); COR CA(FOR HYPOALB) 9.5 mg/dL (8.5-10.1); CREATININE 1.36 mg/dL (0.55-1.02); GLUCOSE 110 mg/dL (65-99); POTASSIUM 3.4 mmol/L (3.5-5.1); SODIUM 137 mmol/L (136-145); TOTAL PROTEIN 5.7 g/dL (6.4-8.2); eGFR NON BLACK RACES 39 (>60)
[2024-06-11] MEDS ORDERED: CONSULT PHARMACY - POTASSIUM & MAGNESIUM XX SCH (08:00)
[2024-06-11] MEDS: D5 NS 1,000 ML IV 1,000 ML IV SCH (08:27)
[2024-06-11] MEDS: VISTARIL PO ONE (09:40)
[2024-06-12 06:34] LABS: BASOPHILS % (AUTO) 0.2 % (0.2-1.0); EOSINOPHILS % (AUTO) 0.7 % (0.9-2.9); HEMATOCRIT 30.8 % (36.0-47.0); HEMOGLOBIN 10.6 g/dL (12.0-16.0); LYMPHOCYTES # (AUTO) 0.6 X10^3/uL (1.3-2.9); LYMPHOCYTES % (AUTO) 9.4 % (21.0-51.0); MEAN CORPUSCULAR HEMOGLOBIN 28.3 pg (27.0-34.0); MEAN CORPUSCULAR HGB CONC 34.4 g/dL (33.0-35.0); MEAN CORPUSCULAR VOLUME 82.4 fL (80.0-100.0); MEAN PLATELET VOLUME 9.6 fL (7.4-11.0); MONOCYTES # (AUTO) 0.7 x10^3/uL (0.3-0.8); MONOCYTES % (AUTO) 10.2 % (0.0-13.0); NEUTROPHILS # (AUTO) 5.1 x10^3/uL (2.2-4.8); NEUTROPHILS % (AUTO) 79.5 % (42.0-75.0); PLATELET COUNT 110 X10^3/uL (150.0-450.0); RED BLOOD COUNT 3.74 X10^6/uL (3.5-5.4); RED CELL DISTRIBUTION WIDTH 14.8 % (11.6-16.5); WHITE BLOOD COUNT 6.4 X10^3/uL (3.6-10.0)
[2024-06-12 06:46] LABS: ALANINE AMINOTRANSFERASE 16 Units/L (12-78); ALBUMIN 2.2 g/dL (3.4-5.0); ALKALINE PHOSPHATASE 84 Units/L (46-116); ASPARTATE AMINO TRANSFERASE 23 Units/L (15-37); BLOOD UREA NITROGEN 10 mg/dL (7-18); CALCIUM 8.1 mg/dL (8.5-10.1); CARBON DIOXIDE 23.7 mmol/L (21-32); CHLORIDE 103 mmol/L (98-107); COR CA(FOR HYPOALB) 9.5 mg/dL (8.5-10.1); CREATININE 0.96 mg/dL (0.55-1.02); GLUCOSE 93 mg/dL (65-99); POTASSIUM 3.2 mmol/L (3.5-5.1); SODIUM 135 mmol/L (136-145); TOTAL PROTEIN 5.8 g/dL (6.4-8.2); eGFR NON BLACK RACES 58 (>60)
[2024-06-12] MEDS ORDERED: CONSULT PHARMACY - POTASSIUM & MAGNESIUM XX SCH (08:00)
--- NOTE | 2024-06-12 08:35 | RAD ---
EXAMINATION:SHOULDER, RIGHTHISTORY:FELL; .COMPARISON STUDY:None.TECHNIQUE:2 views of the right shoulder were obtained.FINDINGS:There is normal mineralization and preservation of joint spaces. There is no fracture or dislocation. The surrounding soft tissues are unremarkable. No osteolytic or osteoblastic lesions are noted. There is no radiopaque foreign body. Slight high-riding right shoulder which may be seen with chronic rotator cuff disease.IMPRESSION:NO ACUTE BONY PROCESS.THIS IS AN ELECTRONICALLY VERIFIED FINAL REPORT06/12/2024 8:32 AM - Electronically signed by Markie Ramirez MD
--- NOTE | 2024-06-12 08:37 | RAD ---
EXAMINATION:LOWER LEG, TIB/FIB LEFTHISTORY:FELL; .COMPARISON STUDY:None.TECHNIQUE:3 views of the left tibia/fibula were obtained.FINDINGS:There is normal mineralization and preservation of joint spaces. There is no fracture, dislocation, or radiopaque foreign body. Soft tissues are unremarkable.There is some cortical thickening anteriorly in the proximal shaft of the tibia. This has a nonaggressive radiographic appearance. This may be on the basis of prior trauma. No lytic destructive changes or subcutaneous emphysemaIMPRESSION:NO ACUTE BONY PROCESS.THIS IS AN ELECTRONICALLY VERIFIED FINAL REPORT06/12/2024 8:34 AM - Electronically signed by Markie Ramirez MD
--- NOTE | 2024-06-12 08:41 | RAD ---
EXAM:HIP, LEFTHISTORY:FELL;COMPARISON:None available.FINDINGS:A single frontal view of the pelvis demonstrates the pelvic ring to be intact. No evidence for acute cortical disruption or dislocation of the hip can be observed. Degenerative changes are observed with extensive osteophyte formation with subcortical cystic and sclerotic changes of the superior lateral aspect of the acetabulum.IMPRESSION:Severe degenerative changes of the hip are observed without acute abnormality identified.THIS IS AN ELECTRONICALLY VERIFIED FINAL REPORT06/12/2024 8:37 AM - Electronically signed by Joseph Del Angel MD
[2024-06-12] MEDS: D5 NS + KCL 20 MEQ/L 1,000 ML with MAGNESIUM SULFATE 50% INJ VIAL 1 G IV SCH (09:46)
[2024-06-12] MEDS: TORADOL 15 MG VIAL IVP SCH (11:39)
--- NOTE | 2024-06-12 15:30 | CT ---
EXAM:LOWER EXT W/OHISTORY:pain;COMPARISON:05/14/2024 and 04/06/2024TECHNIQUE:Multiple CT axial images of the left hip were obtained without administration of IV contrast. Sagittal and coronal reformats were performed and reviewed. Dose reduction techniques including Automated Exposure Control (AEC) and adjustment of mA and kV were utilized.FINDINGS:Severe left hip osteoarthritis with [id number] appearance superiorly and subchondral cysts as well as remodeling of the superior femoral head. This appears similar to the 05/14/2024 CT and 04/06/2024 CT with no significant progression. Similar findings were evident at the right hip as well and therefore these findings are believed to be chronic degenerative related. No significant joint effusion with small joint fluid evident. No evidence for an acute fracture or dislocation. Visualized intrapelvic components show nonspecific presacral stranding and mild subcutaneous edema lateral aspect of the hip. Colon diverticulosis noted in the field of view.IMPRESSION:Severe left hip osteoarthritis with [id number] appearance with slight flattening deformity of the superior left femoral head similar to recent available CTs. No acute fracture..THIS IS AN ELECTRONICALLY VERIFIED FINAL REPORT06/12/2024 3:27 PM - Electronically signed by Justino Amador MD
--- NOTE | 2024-06-13 05:57 | RAD ---
PROCEDURE: Chest X-ray 1 View.HISTORY: SOB, COUGH; .TECHNIQUE: AP portable view.COMPARISON: June 09 this year.TECHNICAL QUALITY: Satisfactory.FINDINGS:Normal size heart.Mediastinum and hilar regions show no masses or lymphadenopathy.Normal central vascularity.No pulmonary consolidation, masses, pleural fluid, or pneumothorax.No acute bony abnormality.IMPRESSION:No evidence of active cardiopulmonary disease.THIS IS AN ELECTRONICALLY VERIFIED FINAL REPORT06/13/2024 5:54 AM - Electronically signed by Eldon Kelly MD
[2024-06-13 06:27] LABS: BASOPHILS % (AUTO) 0.5 % (0.2-1.0); EOSINOPHILS % (AUTO) 1.8 % (0.9-2.9); HEMATOCRIT 30.9 % (36.0-47.0); HEMOGLOBIN 10.4 g/dL (12.0-16.0); LYMPHOCYTES # (AUTO) 0.5 X10^3/uL (1.3-2.9); LYMPHOCYTES % (AUTO) 22.3 % (21.0-51.0); MEAN CORPUSCULAR HEMOGLOBIN 28.1 pg (27.0-34.0); MEAN CORPUSCULAR HGB CONC 33.6 g/dL (33.0-35.0); MEAN CORPUSCULAR VOLUME 83.5 fL (80.0-100.0); MONOCYTES # (AUTO) 0.4 x10^3/uL (0.3-0.8); MONOCYTES % (AUTO) 17.2 % (0.0-13.0); NEUTROPHILS # (AUTO) 1.4 x10^3/uL (2.2-4.8); NEUTROPHILS % (AUTO) 58.2 % (42.0-75.0); PLATELET COUNT 118 X10^3/uL (150.0-450.0); RED CELL DISTRIBUTION WIDTH 15.3 % (11.6-16.5); WHITE BLOOD COUNT 2.3 X10^3/uL (3.6-10.0)
[2024-06-13 06:37] LABS: ALANINE AMINOTRANSFERASE 25 Units/L (12-78); ALBUMIN 1.9 g/dL (3.4-5.0); ALKALINE PHOSPHATASE 75 Units/L (46-116); ASPARTATE AMINO TRANSFERASE 36 Units/L (15-37); BLOOD UREA NITROGEN 8 mg/dL (7-18); CALCIUM 8.1 mg/dL (8.5-10.1); CARBON DIOXIDE 23.9 mmol/L (21-32); CHLORIDE 106 mmol/L (98-107); COR CA(FOR HYPOALB) 9.8 mg/dL (8.5-10.1); COR NA(FOR HYPERGLY) 138 mmol/L (136-145); CREATININE 0.95 mg/dL (0.55-1.02); GLUCOSE 114 mg/dL (65-99); MAGNESIUM 1.9 mg/dL (2.0-2.9); POTASSIUM 3.2 mmol/L (3.5-5.1); SODIUM 138 mmol/L (136-145); TOTAL PROTEIN 5.2 g/dL (6.4-8.2); eGFR NON BLACK RACES 59 (>60)
[2024-06-13] MEDS ORDERED: CONSULT PHARMACY - POTASSIUM & MAGNESIUM XX SCH (07:00)
[2024-06-13 07:12] LABS: PLATELET MORPHOLOGY COMMENT NORMAL (NORMAL)
[2024-06-13] MEDS: MAG-OX TAB PO SCH (08:46)
[2024-06-13] MEDS: K-DUR TAB 20 MEQ PO SCH (08:47)
--- NOTE | 2024-06-13 11:56 | PCM.PROG ---
Progress Note Progress Note for Day of Date of Exam: 06/13/24 Subjective Subjective: Patient seen at bedside, no acute events overnight. She is currently admitted for ESBL bacteremia and UTI. She is on Meropenem. Patient had CT done yesterday and it showed severe left hip OA, no fracture. She has been doing well. She will be going to rehab. Labs/imaging reviewed: -WBC 2.3 Hgb 10.4 Plt 118 K 3.2 Mag 1.9 -Blood Cx 06/10/24 ESBL E.coli Plan: Continue IV Meropenem. Will repeat blood Cx. Continue hydration, replace electrolytes as per protocol. Continue home medications. PT/OT as tolerated. CM working on placement. Monitor AM labs/imaging. Past Medical Family Social History Allergies: Allergies No Known Allergies Allergy (Verified 05/14/24 20:26) Vital Signs and I&O's Vital Signs: Vital Signs Temperature 98.9 F Temperature 98.7 F Pulse Rate [Brachial] 90 Pulse Rate [Brachial] 88 Respiratory Rate 20 Respiratory Rate 18 Respiratory Rate 18 Respiratory Rate 18 Blood Pressure [Right Arm] 140/69 Blood Pressure [Right Arm] 132/60 O2 Sat by Pulse Oximetry 98 O2 Sat by Pulse Oximetry 97 Intake and Output: Intake & Output 06/10/24 06/11/24 06/12/24 06/13/24 23:59 23:59 23:59 23:59 Intake Total 1867 2511 / 2511 2540 / 2540 477 / 477 Balance 1867 2511 / 2511 2540 / 2540 477 / 477 Physical Exam Oriented: Person; negative Time or Place Eyes: Normal Ear: Normal Nose: Normal Throat: Dry Cardiovascular: Normal Auscultation: Bowel Sounds: Normal Palpation: Normal Tenderness: Normal Skin: Decreased Turgur Musculoskeletal: Back:Thoracic, Back:Lumbar and Motor Deficit Psychiatric: Normal Mood Description: Depressed Speech Pattern: Clear and Appropriate Laboratory and Diagnostics 06/13/24 05:45 06/13/24 05:45 Labs: 06/10/24 09:34 Blood Blood Culture Gram Stain - Final 06/10/24 09:34 Blood Blood Culture - Final Escherichia Coli Esbl 06/10/24 09:29 Blood Blood Culture Gram Stain - Final 06/10/24 09:29 Blood Blood Culture - Final Escherichia Coli Esbl 06/09/24 11:55 Urine,Catheterized Urine Culture - Final Escherichia Coli Esbl 06/09/24 12:00 Blood Blood Culture Gram Stain - Final 06/09/24 12:00 Blood Blood Culture - Final Escherichia Coli Esbl 06/09/24 11:50 Blood Blood Culture Gram Stain - Final 06/09/24 11:50 Blood Blood Culture - Final Escherichia Coli Esbl Laboratory WBC 2.3 X10^3/uL (3.6-10.0) L 06/13/24 05:45 RBC 3.70 X10^6/uL (3.5-5.4) 06/13/24 05:45 Hgb 10.4 g/dL (12.0-16.0) L 06/13/24 05:45 Hct 30.9 % (36.0-47.0) L 06/13/24 05:45 MCV 83.5 fL (80.0-100.0) 06/13/24 05:45 MCH 28.1 pg (27.0-34.0) 06/13/24 05:45 MCHC 33.6 g/dL (33.0-35.0) 06/13/24 05:45 RDW 15.3 % (11.6-16.5) 06/13/24 05:45 Plt Count 118 X10^3/uL (150.0-450.0) L 06/13/24 05:45 Plt Count Comment Decreased (ADEQUATE) A 06/13/24 05:45 MPV 9.0 fL (7.4-11.0) 06/13/24 05:45 Neut % (Auto) 58.2 % (42.0-75.0) 06/13/24 05:45 Lymph % (Auto) 22.3 % (21.0-51.0) 06/13/24 05:45 [place] % (Auto) 17.2 % (0.0-13.0) H 06/13/24 05:45 Eos % (Auto) 1.8 % (0.9-2.9) 06/13/24 05:45 Baso % (Auto) 0.5 % (0.2-1.0) 06/13/24 05:45 Neut # (Auto) 1.4 x10^3/uL (2.2-4.8) L 06/13/24 05:45 Lymph # (Auto) 0.5 X10^3/uL (1.3-2.9) L 06/13/24 05:45 [place] # (Auto) 0.4 x10^3/uL (0.3-0.8) 06/13/24 05:45 Eos # (Auto) 0.0 x10^3/uL (0.0-0.2) 06/13/24 05:45 Baso # (Auto) 0.0 X10^3/uL (0.0-0.1) 06/13/24 05:45 Absolute Nucleated RBC 0.0 /100WBC 06/13/24 05:45 Total Counted 100 06/13/24 05:45 Neutrophils % (Manual) 68 % (39-76) 06/13/24 05:45 Band Neutrophils % 19 % (0-10) H 06/10/24 04:59 Lymphocytes % (Manual) 20 % (13-43) 06/13/24 05:45 Monocytes % (Manual) 11 % (4-9) H 06/13/24 05:45 Eosinophils % (Manual) 1 % (0-6) 06/13/24 05:45 Plt Morphology Comment Normal (NORMAL) 06/13/24 05:45 RBC Morphology Normal (NORMAL) 06/13/24 05:45 Sodium 138 mmol/L (136-145) 06/13/24 05:45 Corrected Sodium 138 mmol/L (136-145) 06/13/24 05:45 Potassium 3.2 mmol/L (3.5-5.1) L 06/13/24 05:45 Chloride 106 mmol/L (98-107) 06/13/24 05:45 Carbon Dioxide 23.9 mmol/L (21-32) 06/13/24 05:45 BUN 8 mg/dL (7-18) 06/13/24 05:45 Creatinine 0.95 mg/dL (0.55-1.02) 06/13/24 05:45 Est GFR (MDRD) Af Amer > 60 (>60) 06/13/24 05:45 Est GFR (MDRD) Non-Af 59 (>60) 06/13/24 05:45 Glucose 114 mg/dL (65-99) H 06/13/24 05:45 Lactic Acid 1.0 mmol/L (0.4-2.0) 06/09/24 11:50 Calcium 8.1 mg/dL (8.5-10.1) L 06/13/24 05:45 Corrected Calcium 9.8 mg/dL (8.5-10.1) 06/13/24 05:45 Magnesium 1.9 mg/dL (2.0-2.9) L 06/13/24 05:45 Total Bilirubin 0.30 mg/dL (0.2-1.0) 06/13/24 05:45 AST 36 Units/L (15-37) 06/13/24 05:45 ALT 25 Units/L (12-78) 06/13/24 05:45 Alkaline Phosphatase 75 Units/L (46-116) 06/13/24 05:45 Total Protein 5.2 g/dL (6.4-8.2) L 06/13/24 05:45 Albumin 1.9 g/dL (3.4-5.0) L 06/13/24 05:45 Globulin 3.3 g/dL (2.5-4.5) 06/13/24 05:45 Albumin/Globulin Ratio 0.6 Ratio (1.1-2.1) L 06/13/24 05:45 Specimen Type Catherized urine 06/09/24 11:55 Urine Color Yellow (YELLOW) 06/09/24 11:55 Urine Appearance Slightly hazy (CLEAR) 06/09/24 11:55 Urine pH 6.0 (5.0 - 8.0) 06/09/24 11:55 Ur Specific [place] 1.010 (1.000-1.030) 06/09/24 11:55 Urine Protein 3+ (NEGATIVE) 06/09/24 11:55 Urine Glucose (UA) Negative (NEGATIVE) 06/09/24 11:55 Urine Ketones 1+ (NEGATIVE) 06/09/24 11:55 Urine Blood 4+ (NEGATIVE) 06/09/24 11:55 Urine Nitrite Positive (NEGATIVE) 06/09/24 11:55 Urine Bilirubin Negative (NEGATIVE) 06/09/24 11:55 Urine Urobilinogen Normal (NORMAL) 06/09/24 11:55 Ur Leukocyte Esterase 2+ (NEGATIVE) 06/09/24 11:55 Urine RBC 20-30 /HPF (0-3) A 06/09/24 11:55 Urine WBC 5-10 /HPF (0-5) A 06/09/24 11:55 Ur Squamous Epith Cells Rare /HPF (NEGATIVE) 06/09/24 11:55 Urine Bacteria 2+ /HPF (NEGATIVE) 06/09/24 11:55 Ur Culture Indicated? Yes/culture set up 06/09/24 11:55 SARS-CoV-2 (PCR) Negative (NEGATIVE) 06/09/24 11:49 Plan (1) ESBL (extended spectrum beta-lactamase) producing bacteria infection: Status: Acute (2) Bacteremia: Status: Acute (3) Acute UTI: Status: Acute (4) Acute hypokalemia: Status: Acute (5) CHF (congestive heart failure): Status: Acute Qualifiers: Heart failure type: unspecified Heart failure chronicity: unspecified Qualified Code(s): I50.9 - Heart failure, unspecified (6) Fall at home: Status: Acute Qualifiers: Encounter type: initial encounter Qualified Code(s): W19.XXXA - Unspecified fall, initial encounter
[2024-06-13] MEDS: LINZESS PO SCH (14:16)
[2024-06-13 19:42] LABS: CRYPTOSPORIDIUM PARVUM ANTIGEN NEGATIVE (NEGATIVE); GIARDIA LAMBLIA ANTIGEN NEGATIVE (NEGATIVE)
[2024-06-14 06:40] LABS: BASOPHILS % (AUTO) 0.5 % (0.2-1.0); EOSINOPHILS # (AUTO) 0.1 x10^3/uL (0.0-0.2); HEMATOCRIT 29.5 % (36.0-47.0); LYMPHOCYTES # (AUTO) 0.9 X10^3/uL (1.3-2.9); LYMPHOCYTES % (AUTO) 27.6 % (21.0-51.0); MEAN CORPUSCULAR HEMOGLOBIN 28.1 pg (27.0-34.0); MEAN CORPUSCULAR HGB CONC 33.9 g/dL (33.0-35.0); MEAN PLATELET VOLUME 9.3 fL (7.4-11.0); MONOCYTES # (AUTO) 0.7 x10^3/uL (0.3-0.8); MONOCYTES % (AUTO) 21.9 % (0.0-13.0); NEUTROPHILS # (AUTO) 1.5 x10^3/uL (2.2-4.8); PLATELET COUNT 132 X10^3/uL (150.0-450.0); RED BLOOD COUNT 3.56 X10^6/uL (3.5-5.4); RED CELL DISTRIBUTION WIDTH 15.3 % (11.6-16.5); WHITE BLOOD COUNT 3.2 X10^3/uL (3.6-10.0)
[2024-06-14 06:51] LABS: ALANINE AMINOTRANSFERASE 51 Units/L (12-78); ALKALINE PHOSPHATASE 80 Units/L (46-116); ASPARTATE AMINO TRANSFERASE 79 Units/L (15-37); BLOOD UREA NITROGEN 5 mg/dL (7-18); CALCIUM 8.4 mg/dL (8.5-10.1); CARBON DIOXIDE 26.2 mmol/L (21-32); CHLORIDE 106 mmol/L (98-107); CREATININE 0.77 mg/dL (0.55-1.02); GLUCOSE 93 mg/dL (65-99); MAGNESIUM 1.8 mg/dL (2.0-2.9); POTASSIUM 4.3 mmol/L (3.5-5.1); SODIUM 137 mmol/L (136-145); TOTAL PROTEIN 5.3 g/dL (6.4-8.2); eGFR NON BLACK RACES > 60 (>60)
[2024-06-14 07:21] LABS: BURR CELLS PRESENT; PLATELET MORPHOLOGY COMMENT NORMAL (NORMAL)
[2024-06-14 07:22] LABS: SCHISTOCYTES PRESENT
--- NOTE | 2024-06-14 10:19 | PCM.PROG ---
Progress Note Progress Note for Day of Date of Exam: 06/14/24 Subjective Subjective: Patient seen at bedside, no acute events overnight. She is currently admitted for ESBL bacteremia and UTI. She is on Meropenem. She did have some loose stools yesterday, stool studies were negative. She reports taking 2 Linzess. She has been doing well. She will be going to rehab. Repeat blood Cx pending. Labs/imaging reviewed: -WBC 2.3 Hgb 10.4 Plt 118 K 3.2 Mag 1.9 -Blood Cx 06/10/24 ESBL E.coli Plan: Continue IV Meropenem. Follow pending cultures. Hold Linzess. Continue hydration, replace electrolytes as per protocol. Continue home medications. PT/OT as tolerated. CM working on placement. Monitor AM labs/imaging. Past Medical Family Social History Allergies: Allergies No Known Allergies Allergy (Verified 05/14/24 20:26) Vital Signs and I&O's Vital Signs: Vital Signs Temperature 98.9 F Pulse Rate [Brachial] 90 Respiratory Rate 18 Blood Pressure [Left Arm] 170/78 O2 Sat by Pulse Oximetry 97 Intake and Output: Intake & Output 06/11/24 06/12/24 06/13/24 06/14/24 23:59 23:59 23:59 23:59 Intake Total 2511 / 2511 2540 / 2540 2658 / 2658 438 / 438 Balance 2511 / 2511 2540 / 2540 2658 / 2658 438 / 438 Physical Exam Oriented: Person; negative Time or Place Eyes: Normal Ear: Normal Nose: Normal Throat: Normal Respiratory: Generalized and Diminished Cardiovascular: Normal Auscultation: Bowel Sounds: Normal Tenderness: Normal Skin: Decreased Turgur Musculoskeletal: Back:Thoracic, Back:Lumbar and Motor Deficit Psychiatric: Normal Mood Description: Depressed Affect: Normal Speech Pattern: Clear and Appropriate Laboratory and Diagnostics 06/14/24 05:24 06/14/24 05:24 Labs: 06/13/24 18:36 Stool - Final 06/10/24 09:34 Blood Blood Culture Gram Stain - Final 06/10/24 09:34 Blood Blood Culture - Final Escherichia Coli Esbl 06/10/24 09:29 Blood Blood Culture Gram Stain - Final 06/10/24 09:29 Blood Blood Culture - Final Escherichia Coli Esbl 06/09/24 11:55 Urine,Catheterized Urine Culture - Final Escherichia Coli Esbl 06/09/24 12:00 Blood Blood Culture Gram Stain - Final 06/09/24 12:00 Blood Blood Culture - Final Escherichia Coli Esbl 06/09/24 11:50 Blood Blood Culture Gram Stain - Final 06/09/24 11:50 Blood Blood Culture - Final Escherichia Coli Esbl Laboratory WBC 3.2 X10^3/uL (3.6-10.0) L 06/14/24 05:24 RBC 3.56 X10^6/uL (3.5-5.4) 06/14/24 05:24 Hgb 10.0 g/dL (12.0-16.0) L 06/14/24 05:24 Hct 29.5 % (36.0-47.0) L 06/14/24 05:24 MCV 83.0 fL (80.0-100.0) 06/14/24 05:24 MCH 28.1 pg (27.0-34.0) 06/14/24 05:24 MCHC 33.9 g/dL (33.0-35.0) 06/14/24 05:24 RDW 15.3 % (11.6-16.5) 06/14/24 05:24 Plt Count 132 X10^3/uL (150.0-450.0) L 06/14/24 05:24 Plt Count Comment Adequate (ADEQUATE) 06/14/24 05:24 MPV 9.3 fL (7.4-11.0) 06/14/24 05:24 Neut % (Auto) 47.0 % (42.0-75.0) 06/14/24 05:24 Lymph % (Auto) 27.6 % (21.0-51.0) 06/14/24 05:24 [place] % (Auto) 21.9 % (0.0-13.0) H 06/14/24 05:24 Eos % (Auto) 3.0 % (0.9-2.9) H 06/14/24 05:24 Baso % (Auto) 0.5 % (0.2-1.0) 06/14/24 05:24 Neut # (Auto) 1.5 x10^3/uL (2.2-4.8) L 06/14/24 05:24 Lymph # (Auto) 0.9 X10^3/uL (1.3-2.9) L 06/14/24 05:24 [place] # (Auto) 0.7 x10^3/uL (0.3-0.8) 06/14/24 05:24 Eos # (Auto) 0.1 x10^3/uL (0.0-0.2) 06/14/24 05:24 Baso # (Auto) 0.0 X10^3/uL (0.0-0.1) 06/14/24 05:24 Absolute Nucleated RBC 0.0 /100WBC 06/14/24 05:24 Total Counted 100 06/14/24 05:24 Neutrophils % (Manual) 57 % (39-76) 06/14/24 05:24 Band Neutrophils % 19 % (0-10) H 06/10/24 04:59 Lymphocytes % (Manual) 28 % (13-43) 06/14/24 05:24 Monocytes % (Manual) 13 % (4-9) H 06/14/24 05:24 Eosinophils % (Manual) 2 % (0-6) 06/14/24 05:24 Plt Morphology Comment Normal (NORMAL) 06/14/24 05:24 RBC Morphology Abnormal (NORMAL) A 06/14/24 05:24 Diana Cells Present 06/14/24 05:24 Schistocytes Present 06/14/24 05:24 Sodium 137 mmol/L (136-145) 06/14/24 05:24 Corrected Sodium TNP 06/14/24 05:24 Potassium 4.3 mmol/L (3.5-5.1) 06/14/24 05:24 Chloride 106 mmol/L (98-107) 06/14/24 05:24 Carbon Dioxide 26.2 mmol/L (21-32) 06/14/24 05:24 BUN 5 mg/dL (7-18) L 06/14/24 05:24 Creatinine 0.77 mg/dL (0.55-1.02) 06/14/24 05:24 Est GFR (MDRD) Af Amer > 60 (>60) 06/14/24 05:24 Est GFR (MDRD) Non-Af > 60 (>60) 06/14/24 05:24 Glucose 93 mg/dL (65-99) 06/14/24 05:24 Lactic Acid 1.0 mmol/L (0.4-2.0) 06/09/24 11:50 Calcium 8.4 mg/dL (8.5-10.1) L 06/14/24 05:24 Corrected Calcium 10.0 mg/dL (8.5-10.1) 06/14/24 05:24 Magnesium 1.8 mg/dL (2.0-2.9) L 06/14/24 05:24 Total Bilirubin 0.30 mg/dL (0.2-1.0) 06/14/24 05:24 AST 79 Units/L (15-37) H 06/14/24 05:24 ALT 51 Units/L (12-78) 06/14/24 05:24 Alkaline Phosphatase 80 Units/L (46-116) 06/14/24 05:24 Total Protein 5.3 g/dL (6.4-8.2) L 06/14/24 05:24 Albumin 2.0 g/dL (3.4-5.0) L 06/14/24 05:24 Globulin 3.3 g/dL (2.5-4.5) 06/14/24 05:24 Albumin/Globulin Ratio 0.6 Ratio (1.1-2.1) L 06/14/24 05:24 Specimen Type Catherized urine 06/09/24 11:55 Urine Color Yellow (YELLOW) 06/09/24 11:55 Urine Appearance Slightly hazy (CLEAR) 06/09/24 11:55 Urine pH 6.0 (5.0 - 8.0) 06/09/24 11:55 Ur Specific [place] 1.010 (1.000-1.030) 06/09/24 11:55 Urine Protein 3+ (NEGATIVE) 06/09/24 11:55 Urine Glucose (UA) Negative (NEGATIVE) 06/09/24 11:55 Urine Ketones 1+ (NEGATIVE) 06/09/24 11:55 Urine Blood 4+ (NEGATIVE) 06/09/24 11:55 Urine Nitrite Positive (NEGATIVE) 06/09/24 11:55 Urine Bilirubin Negative (NEGATIVE) 06/09/24 11:55 Urine Urobilinogen Normal (NORMAL) 06/09/24 11:55 Ur Leukocyte Esterase 2+ (NEGATIVE) 06/09/24 11:55 Urine RBC 20-30 /HPF (0-3) A 06/09/24 11:55 Urine WBC 5-10 /HPF (0-5) A 06/09/24 11:55 Ur Squamous Epith Cells Rare /HPF (NEGATIVE) 06/09/24 11:55 Urine Bacteria 2+ /HPF (NEGATIVE) 06/09/24 11:55 Ur Culture Indicated? Yes/culture set up 06/09/24 11:55 Stl Occult Blood (IFOB) Negative (NEGATIVE) 06/13/24 18:36 Stl C. diff Tox B Gene Negative (NEGATIVE) 06/13/24 18:36 Stl C. diff [id number] Presumptive negative (NEGATIVE) 06/13/24 18:36 Stool H. pylori Ag Negative (NEGATIVE) 06/13/24 18:36 SARS-CoV-2 (PCR) Negative (NEGATIVE) 06/09/24 11:49 Cryptosporid parvum Ag Negative (NEGATIVE) 06/13/24 18:36 Giardia lamblia Ag Negative (NEGATIVE) 06/13/24 18:36 Plan (1) ESBL (extended spectrum beta-lactamase) producing bacteria infection: Status: Acute (2) Bacteremia: Status: Acute (3) Acute UTI: Status: Acute (4) Acute hypokalemia: Status: Acute (5) CHF (congestive heart failure): Status: Acute Qualifiers: Heart failure chronicity: unspecified Heart failure type: unspecified Qualified Code(s): I50.9 - Heart failure, unspecified (6) Fall at home: Status: Acute Qualifiers: Encounter type: initial encounter Qualified Code(s): W19.XXXA - Unspecified fall, initial encounter
--- NOTE | 2024-06-14 12:17 | EKG ---
Test Reason : chest pain Blood Pressure : */* mmHG Vent. Rate : 93 BPM Atrial Rate : 93 BPM P-R Int : 182 ms QRS Dur : 88 ms QT Int : 348 ms P-R-T Axes : 62 26 43 degrees QTc Int : 432 ms Normal sinus rhythm possible anterior mi/prwp Minimal voltage criteria for LVH, may be normal variant ( [place] product ) Borderline ECG No previous ECGs available Confirmed by Main Oliver MD ([id number]) on 06/15/2024 7:31:11 AM Referred By: Confirmed By: Main Oliver MD
[2024-06-15 05:29] LABS: BASOPHILS % (AUTO) 0.3 % (0.2-1.0); EOSINOPHILS # (AUTO) 0.1 x10^3/uL (0.0-0.2); HEMATOCRIT 30.9 % (36.0-47.0); HEMOGLOBIN 10.2 g/dL (12.0-16.0); LYMPHOCYTES # (AUTO) 1.2 X10^3/uL (1.3-2.9); LYMPHOCYTES % (AUTO) 29.1 % (21.0-51.0); MEAN CORPUSCULAR HEMOGLOBIN 27.6 pg (27.0-34.0); MEAN CORPUSCULAR HGB CONC 33.1 g/dL (33.0-35.0); MEAN CORPUSCULAR VOLUME 83.3 fL (80.0-100.0); MEAN PLATELET VOLUME 8.4 fL (7.4-11.0); MONOCYTES # (AUTO) 0.7 x10^3/uL (0.3-0.8); MONOCYTES % (AUTO) 16.6 % (0.0-13.0); NEUTROPHILS # (AUTO) 2.1 x10^3/uL (2.2-4.8); PLATELET COUNT 158 X10^3/uL (150.0-450.0); RED BLOOD COUNT 3.71 X10^6/uL (3.5-5.4); RED CELL DISTRIBUTION WIDTH 15.4 % (11.6-16.5); WHITE BLOOD COUNT 4.1 X10^3/uL (3.6-10.0)
[2024-06-15 05:38] LABS: ALANINE AMINOTRANSFERASE 39 Units/L (12-78); ALKALINE PHOSPHATASE 87 Units/L (46-116); ASPARTATE AMINO TRANSFERASE 41 Units/L (15-37); BLOOD UREA NITROGEN 2 mg/dL (7-18); CALCIUM 8.6 mg/dL (8.5-10.1); CARBON DIOXIDE 30.4 mmol/L (21-32); CHLORIDE 105 mmol/L (98-107); COR CA(FOR HYPOALB) 10.2 mg/dL (8.5-10.1); CREATININE 0.74 mg/dL (0.55-1.02); GLUCOSE 96 mg/dL (65-99); POTASSIUM 4.2 mmol/L (3.5-5.1); SODIUM 138 mmol/L (136-145); TOTAL PROTEIN 5.5 g/dL (6.4-8.2); eGFR NON BLACK RACES > 60 (>60)
[2024-06-15] MEDS: KCL IV SCH (14:49)
[2024-06-15] MEDS: MAGNESIUM SULFATE IV SCH (14:49)
[2024-06-15] MEDS: D5 NS IV SCH (14:49)
[2024-06-16 06:26] LABS: BASOPHILS % (AUTO) 0.5 % (0.2-1.0); EOSINOPHILS # (AUTO) 0.2 x10^3/uL (0.0-0.2); EOSINOPHILS % (AUTO) 3.2 % (0.9-2.9); HEMATOCRIT 28.9 % (36.0-47.0); HEMOGLOBIN 9.8 g/dL (12.0-16.0); LYMPHOCYTES # (AUTO) 1.3 X10^3/uL (1.3-2.9); MEAN CORPUSCULAR HGB CONC 33.9 g/dL (33.0-35.0); MEAN CORPUSCULAR VOLUME 82.6 fL (80.0-100.0); MEAN PLATELET VOLUME 8.7 fL (7.4-11.0); MONOCYTES # (AUTO) 0.7 x10^3/uL (0.3-0.8); MONOCYTES % (AUTO) 14.7 % (0.0-13.0); NEUTROPHILS # (AUTO) 2.7 x10^3/uL (2.2-4.8); NEUTROPHILS % (AUTO) 54.6 % (42.0-75.0); PLATELET COUNT 195 X10^3/uL (150.0-450.0); RED CELL DISTRIBUTION WIDTH 15.1 % (11.6-16.5); WHITE BLOOD COUNT 4.9 X10^3/uL (3.6-10.0)
[2024-06-16 06:42] LABS: ALANINE AMINOTRANSFERASE 34 Units/L (12-78); ALBUMIN 1.9 g/dL (3.4-5.0); ALKALINE PHOSPHATASE 85 Units/L (46-116); ASPARTATE AMINO TRANSFERASE 32 Units/L (15-37); BLOOD UREA NITROGEN 3 mg/dL (7-18); CALCIUM 8.6 mg/dL (8.5-10.1); CARBON DIOXIDE 29.7 mmol/L (21-32); CHLORIDE 105 mmol/L (98-107); COR CA(FOR HYPOALB) 10.3 mg/dL (8.5-10.1); GLUCOSE 90 mg/dL (65-99); MAGNESIUM 2.1 mg/dL (2.0-2.9); SODIUM 137 mmol/L (136-145); TOTAL PROTEIN 5.3 g/dL (6.4-8.2); eGFR NON BLACK RACES > 60 (>60)
[2024-06-16] MEDS: INVanz INJ 1 GRAM VIAL 1 G in NS 100 ML IV 100 ML IV SCH (09:24)
[2024-06-16 12:30] VITALS: BP 180/80; PULSE 74; RESP 18; TEMP 98; O2SAT 97
--- NOTE | 2024-06-16 17:47 | PCM.PROG ---
Progress Note Progress Note for Day of Date of Exam: 06/15/24 Subjective Subjective: Patient seen at bedside with no acute events overnight. She continues to be treated for ESBL bacteremia and UTI with IV Meropenem. She reports feeling well, with no further loose stools after Linzess was held. The patient is still preparing for transfer to rehab, and care management is activ nerissa working on placement. - Labs reviewed today: Hgb 10.2, Mag 1.8, Plt 158, K+ 4.2. - Blood cultures remain pending. Past Medical Family Social History Allergies: Allergies No Known Allergies Allergy (Verified 05/14/24 20:26) Vital Signs and I&O's Vital Signs: Vital Signs Temperature 98 F Temperature 98.4 F Pulse Rate [Brachial] 74 Pulse Rate [Brachial] 83 Respiratory Rate 18 Respiratory Rate 16 Blood Pressure [Left Arm] 180/80 Blood Pressure [Left Arm] 133/76 O2 Sat by Pulse Oximetry 97 O2 Sat by Pulse Oximetry 96 Intake and Output: Intake & Output 06/14/24 06/15/24 06/16/24 06/17/24 11:59 11:59 11:59 11:59 Intake Total 2619 / 2619 2477 / 2477 3462 / 3462 Balance 2619 / 2619 2477 / 2477 3462 / 3462 Physical Exam Oriented: Person; negative Time or Place Eyes: Normal Ear: Normal Nose: Normal Throat: Normal Respiratory: Generalized and Diminished Cardiovascular: Normal : Normal Auscultation: Bowel Sounds: Normal Tenderness: Normal Skin: Decreased Turgur Musculoskeletal: Back:Thoracic, Back:Lumbar and Motor Deficit Psychiatric: Normal Mood Description: Depressed Affect: Normal Speech Pattern: Clear and Appropriate Laboratory and Diagnostics 06/16/24 05:20 06/16/24 05:20 Labs: 06/13/24 12:15 Blood Blood Culture - Preliminary 06/13/24 12:05 Blood Blood Culture - Preliminary 06/13/24 18:36 Stool Stool Culture - Final 06/13/24 18:36 Stool - Final 06/10/24 09:34 Blood Blood Culture Gram Stain - Final 06/10/24 09:34 Blood Blood Culture - Final Escherichia Coli Esbl 06/10/24 09:29 Blood Blood Culture Gram Stain - Final 06/10/24 09:29 Blood Blood Culture - Final Escherichia Coli Esbl 06/09/24 11:55 Urine,Catheterized Urine Culture - Final Escherichia Coli Esbl 06/09/24 12:00 Blood Blood Culture Gram Stain - Final 06/09/24 12:00 Blood Blood Culture - Final Escherichia Coli Esbl 06/09/24 11:50 Blood Blood Culture Gram Stain - Final 06/09/24 11:50 Blood Blood Culture - Final Escherichia Coli Esbl Laboratory WBC 4.9 X10^3/uL (3.6-10.0) 06/16/24 05:20 RBC 3.50 X10^6/uL (3.5-5.4) 06/16/24 05:20 Hgb 9.8 g/dL (12.0-16.0) L 06/16/24 05:20 Hct 28.9 % (36.0-47.0) L 06/16/24 05:20 MCV 82.6 fL (80.0-100.0) 06/16/24 05:20 MCH 28.0 pg (27.0-34.0) 06/16/24 05:20 MCHC 33.9 g/dL (33.0-35.0) 06/16/24 05:20 RDW 15.1 % (11.6-16.5) 06/16/24 05:20 Plt Count 195 X10^3/uL (150.0-450.0) 06/16/24 05:20 Plt Count Comment Adequate (ADEQUATE) 06/14/24 05:24 MPV 8.7 fL (7.4-11.0) 06/16/24 05:20 Neut % (Auto) 54.6 % (42.0-75.0) 06/16/24 05:20 Lymph % (Auto) 27.0 % (21.0-51.0) 06/16/24 05:20 [place] % (Auto) 14.7 % (0.0-13.0) H 06/16/24 05:20 Eos % (Auto) 3.2 % (0.9-2.9) H 06/16/24 05:20 Baso % (Auto) 0.5 % (0.2-1.0) 06/16/24 05:20 Neut # (Auto) 2.7 x10^3/uL (2.2-4.8) 06/16/24 05:20 Lymph # (Auto) 1.3 X10^3/uL (1.3-2.9) 06/16/24 05:20 [place] # (Auto) 0.7 x10^3/uL (0.3-0.8) 06/16/24 05:20 Eos # (Auto) 0.2 x10^3/uL (0.0-0.2) 06/16/24 05:20 Baso # (Auto) 0.0 X10^3/uL (0.0-0.1) 06/16/24 05:20 Absolute Nucleated RBC 0.1 /100WBC 06/16/24 05:20 Total Counted 100 06/14/24 05:24 Neutrophils % (Manual) 57 % (39-76) 06/14/24 05:24 Band Neutrophils % 19 % (0-10) H 06/10/24 04:59 Lymphocytes % (Manual) 28 % (13-43) 06/14/24 05:24 Monocytes % (Manual) 13 % (4-9) H 06/14/24 05:24 Eosinophils % (Manual) 2 % (0-6) 06/14/24 05:24 Plt Morphology Comment Normal (NORMAL) 06/14/24 05:24 RBC Morphology Abnormal (NORMAL) A 06/14/24 05:24 Diana Cells Present 06/14/24 05:24 Schistocytes Present 06/14/24 05:24 Sodium 137 mmol/L (136-145) 06/16/24 05:20 Corrected Sodium TNP 06/16/24 05:20 Potassium 4.0 mmol/L (3.5-5.1) 06/16/24 05:20 Chloride 105 mmol/L (98-107) 06/16/24 05:20 Carbon Dioxide 29.7 mmol/L (21-32) 06/16/24 05:20 BUN 3 mg/dL (7-18) L 06/16/24 05:20 Creatinine 0.70 mg/dL (0.55-1.02) 06/16/24 05:20 Est GFR (MDRD) Af Amer > 60 (>60) 06/16/24 05:20 Est GFR (MDRD) Non-Af > 60 (>60) 06/16/24 05:20 Glucose 90 mg/dL (65-99) 06/16/24 05:20 Lactic Acid 1.0 mmol/L (0.4-2.0) 06/09/24 11:50 Calcium 8.6 mg/dL (8.5-10.1) 06/16/24 05:20 Corrected Calcium 10.3 mg/dL (8.5-10.1) H 06/16/24 05:20 Magnesium 2.1 mg/dL (2.0-2.9) 06/16/24 05:20 Total Bilirubin 0.30 mg/dL (0.2-1.0) 06/16/24 05:20 AST 32 Units/L (15-37) 06/16/24 05:20 ALT 34 Units/L (12-78) 06/16/24 05:20 Alkaline Phosphatase 85 Units/L (46-116) 06/16/24 05:20 Troponin I High Sens 10.9 ng/L (4.0-60.0) 06/14/24 11:45 Total Protein 5.3 g/dL (6.4-8.2) L 06/16/24 05:20 Albumin 1.9 g/dL (3.4-5.0) L 06/16/24 05:20 Globulin 3.4 g/dL (2.5-4.5) 06/16/24 05:20 Albumin/Globulin Ratio 0.6 Ratio (1.1-2.1) L 06/16/24 05:20 Specimen Type Catherized urine 06/09/24 11:55 Urine Color Yellow (YELLOW) 06/09/24 11:55 Urine Appearance Slightly hazy (CLEAR) 06/09/24 11:55 Urine pH 6.0 (5.0 - 8.0) 06/09/24 11:55 Ur Specific [place] 1.010 (1.000-1.030) 06/09/24 11:55 Urine Protein 3+ (NEGATIVE) 06/09/24 11:55 Urine Glucose (UA) Negative (NEGATIVE) 06/09/24 11:55 Urine Ketones 1+ (NEGATIVE) 06/09/24 11:55 Urine Blood 4+ (NEGATIVE) 06/09/24 11:55 Urine Nitrite Positive (NEGATIVE) 06/09/24 11:55 Urine Bilirubin Negative (NEGATIVE) 06/09/24 11:55 Urine Urobilinogen Normal (NORMAL) 06/09/24 11:55 Ur Leukocyte Esterase 2+ (NEGATIVE) 06/09/24 11:55 Urine RBC 20-30 /HPF (0-3) A 06/09/24 11:55 Urine WBC 5-10 /HPF (0-5) A 06/09/24 11:55 Ur Squamous Epith Cells Rare /HPF (NEGATIVE) 06/09/24 11:55 Urine Bacteria 2+ /HPF (NEGATIVE) 06/09/24 11:55 Ur Culture Indicated? Yes/culture set up 06/09/24 11:55 Stl Occult Blood (IFOB) Negative (NEGATIVE) 06/13/24 18:36 Stl C. diff Tox B Gene Negative (NEGATIVE) 06/13/24 18:36 Stl C. diff [id number] Presumptive negative (NEGATIVE) 06/13/24 18:36 Stool H. pylori Ag Negative (NEGATIVE) 06/13/24 18:36 SARS-CoV-2 (PCR) Negative (NEGATIVE) 06/09/24 11:49 Cryptosporid parvum Ag Negative (NEGATIVE) 06/13/24 18:36 Giardia lamblia Ag Negative (NEGATIVE) 06/13/24 18:36 Plan (1) ESBL (extended spectrum beta-lactamase) producing bacteria infection: Status: Acute Narrative Support Text: Continue IV Meropenem.Continue hydration and electrolyte replacement as per protocol. Maintain home medications. PT/OT as tolerated. Follow-up on pending cultures and monitor AM labs. (2) Bacteremia: Status: Acute (3) Acute UTI: Status: Acute (4) Acute hypokalemia: Status: Acute (5) CHF (congestive heart failure): Status: Acute Qualifiers: Heart failure chronicity: unspecified Heart failure type: unspecified Qualified Code(s): I50.9 - Heart failure, unspecified (6) Fall at home: Status: Acute Qualifiers: Encounter type: initial encounter Qualified Code(s): W19.XXXA - Unspecified fall, initial encounter
--- NOTE | 2024-06-16 17:47 | PCM.PROG ---
Progress Note Progress Note for Day of Date of Exam: 06/11/24 Subjective Subjective: The patient remains hospitalized for altered mental status and a urinary tract infection. Overnight, she was febrile, and IV Meropenem was initiated. Urine and blood cultures are still pending. The patient is receiving IV hydration with electrolyte replacement and continues on IV antibiotic therapy. Lab results show improvement, with the WBC count decreasing from 14.7 to 9.6, potassium increasing from 2.7 to 3.4, and hemoglobin stable at 10.8. Platelets are 98, BUN 21, and creatinine 1.36. The patient is tolerating both IV fluids and antibiotics well, and her condition will continue to be monitored while awaiting culture results. Past Medical Family Social History Allergies: Allergies No Known Allergies Allergy (Verified 05/14/24 20:26) Vital Signs and I&O's Vital Signs: Vital Signs Temperature 98.7 F Temperature 98.9 F Pulse Rate [Brachial] 88 Pulse Rate [Brachial] 88 Respiratory Rate 18 Respiratory Rate 18 Respiratory Rate 16 Respiratory Rate 18 Blood Pressure [Right Arm] 171/78 Blood Pressure [Right Arm] 131/63 O2 Sat by Pulse Oximetry 95 O2 Sat by Pulse Oximetry 91 Intake and Output: Intake & Output 06/09/24 06/10/24 06/11/24 06/12/24 11:59 11:59 11:59 11:59 Intake Total 1660 / 1660 2019 1118 / 1118 Balance 1660 / 1660 2019 1118 / 1118 Physical Exam Oriented: Person; negative Time or Place Eyes: Normal Ear: Normal Nose: Normal Throat: Dry Cardiovascular: Normal : Normal Auscultation: Bowel Sounds: Normal Tenderness: Normal Skin: Decreased [place]urgur Musculoskeletal: Back:Thoracic, Back:Lumbar and Motor Deficit Mood Description: Depressed Speech Pattern: Clear and Appropriate Laboratory and Diagnostics 06/16/24 05:20 06/16/24 05:20 Labs: 06/10/24 09:34 Blood Blood Culture Gram Stain - Final 06/10/24 09:34 Blood Blood Culture - Preliminary 06/10/24 09:29 Blood Blood Culture Gram Stain - Final 06/10/24 09:29 Blood Blood Culture - Preliminary 06/09/24 11:55 Urine,Catheterized Urine Culture - Final Escherichia Coli Esbl 06/09/24 12:00 Blood Blood Culture Gram Stain - Final 06/09/24 12:00 Blood Blood Culture - Final Escherichia Coli Esbl 06/09/24 11:50 Blood Blood Culture Gram Stain - Final 06/09/24 11:50 Blood Blood Culture - Final Escherichia Coli Esbl Laboratory WBC 9.6 X10^3/uL (3.6-10.0) 06/11/24 05:10 RBC 3.85 X10^6/uL (3.5-5.4) 06/11/24 05:10 Hgb 10.8 g/dL (12.0-16.0) L 06/11/24 05:10 Hct 32.1 % (36.0-47.0) L 06/11/24 05:10 MCV 83.2 fL (80.0-100.0) 06/11/24 05:10 MCH 28.0 pg (27.0-34.0) 06/11/24 05:10 MCHC 33.7 g/dL (33.0-35.0) 06/11/24 05:10 RDW 14.8 % (11.6-16.5) 06/11/24 05:10 Plt Count 98 X10^3/uL (150.0-450.0) L 06/11/24 05:10 Plt Count Comment Decreased (ADEQUATE) A 06/10/24 04:59 MPV 9.5 fL (7.4-11.0) 06/11/24 05:10 Neut % (Auto) 86.0 % (42.0-75.0) H 06/11/24 05:10 Lymph % (Auto) 5.9 % (21.0-51.0) L 06/11/24 05:10 [place] % (Auto) 7.8 % (0.0-13.0) 06/11/24 05:10 Eos % (Auto) 0.1 % (0.9-2.9) L 06/11/24 05:10 Baso % (Auto) 0.2 % (0.2-1.0) 06/11/24 05:10 Neut # (Auto) 8.3 x10^3/uL (2.2-4.8) H 06/11/24 05:10 Lymph # (Auto) 0.6 X10^3/uL (1.3-2.9) L 06/11/24 05:10 [place] # (Auto) 0.8 x10^3/uL (0.3-0.8) 06/11/24 05:10 Eos # (Auto) 0.0 x10^3/uL (0.0-0.2) 06/11/24 05:10 Baso # (Auto) 0.0 X10^3/uL (0.0-0.1) 06/11/24 05:10 Absolute Nucleated RBC 0.0 /100WBC 06/11/24 05:10 Total Counted 100 06/10/24 04:59 Neutrophils % (Manual) 73 % (39-76) 06/10/24 04:59 Band Neutrophils % 19 % (0-10) H 06/10/24 04:59 Lymphocytes % (Manual) 3 % (13-43) L 06/10/24 04:59 Monocytes % (Manual) 5 % (4-9) 06/10/24 04:59 Plt Morphology Comment Normal (NORMAL) 06/10/24 04:59 RBC Morphology Normal (NORMAL) 06/10/24 04:59 Sodium 137 mmol/L (136-145) 06/11/24 05:10 Corrected Sodium TNP 06/11/24 05:10 Potassium 3.4 mmol/L (3.5-5.1) L 06/11/24 05:10 Chloride 104 mmol/L (98-107) 06/11/24 05:10 Carbon Dioxide 27.5 mmol/L (21-32) 06/11/24 05:10 BUN 21 mg/dL (7-18) H 06/11/24 05:10 Creatinine 1.36 mg/dL (0.55-1.02) H 06/11/24 05:10 Est GFR (MDRD) Af Amer 47 (>60) L 06/11/24 05:10 Est GFR (MDRD) Non-Af 39 (>60) L 06/11/24 05:10 Glucose 110 mg/dL (65-99) H 06/11/24 05:10 Lactic Acid 1.0 mmol/L (0.4-2.0) 06/09/24 11:50 Calcium 8.1 mg/dL (8.5-10.1) L 06/11/24 05:10 Corrected Calcium 9.5 mg/dL (8.5-10.1) 06/11/24 05:10 Magnesium 2.9 mg/dL (2.0-2.9) 06/10/24 04:59 Total Bilirubin 0.30 mg/dL (0.2-1.0) 06/11/24 05:10 AST 17 Units/L (15-37) 06/11/24 05:10 ALT 14 Units/L (12-78) 06/11/24 05:10 Alkaline Phosphatase 87 Units/L (46-116) 06/11/24 05:10 Total Protein 5.7 g/dL (6.4-8.2) L 06/11/24 05:10 Albumin 2.2 g/dL (3.4-5.0) L 06/11/24 05:10 Globulin 3.5 g/dL (2.5-4.5) 06/11/24 05:10 Albumin/Globulin Ratio 0.6 Ratio (1.1-2.1) L 06/11/24 05:10 Specimen Type Catherized urine 06/09/24 11:55 Urine Color Yellow (YELLOW) 06/09/24 11:55 Urine Appearance Slightly hazy (CLEAR) 06/09/24 11:55 Urine pH 6.0 (5.0 - 8.0) 06/09/24 11:55 Ur Specific [place] 1.010 (1.000-1.030) 06/09/24 11:55 Urine Protein 3+ (NEGATIVE) 06/09/24 11:55 Urine Glucose (UA) Negative (NEGATIVE) 06/09/24 11:55 Urine Ketones 1+ (NEGATIVE) 06/09/24 11:55 Urine Blood 4+ (NEGATIVE) 06/09/24 11:55 Urine Nitrite Positive (NEGATIVE) 06/09/24 11:55 Urine Bilirubin Negative (NEGATIVE) 06/09/24 11:55 Urine Urobilinogen Normal (NORMAL) 06/09/24 11:55 Ur Leukocyte Esterase 2+ (NEGATIVE) 06/09/24 11:55 Urine RBC 20-30 /HPF (0-3) A 06/09/24 11:55 Urine WBC 5-10 /HPF (0-5) A 06/09/24 11:55 Ur Squamous Epith Cells Rare /HPF (NEGATIVE) 06/09/24 11:55 Urine Bacteria 2+ /HPF (NEGATIVE) 06/09/24 11:55 Ur Culture Indicated? Yes/culture set up 06/09/24 11:55 SARS-CoV-2 (PCR) Negative (NEGATIVE) 06/09/24 11:49 Plan (1) Altered mental status: Status: Acute Plan: PENDING URINE AND BLOOD CULTURES IV HYDRATION WITH ELECTROLYTE REPLACEMENT. IV ATBX THERAPY BP CONTROL VERIFY HOME MEDICATION (2) Acute UTI: Status: Acute (3) Acute hypokalemia: Status: Acute (4) CHF (congestive heart failure): Status: Acute (5) Fall at home: Status: Acute Qualifiers: Encounter type: initial encounter Qualified Code(s): W19.XXXA - Unspecified fall, initial encounter
== END 2024-06-16 14:00 | DRG 690 ==
LOC: MED/SURG 11:25 → ER 11:25 → OBSVTOIN 14:39 → MED/SURG 15:29
PROVIDERS: ADMIT Internal Medicine; ATTEND Internal Medicine
DX: R07.89 Other chest pain; E86.0 Dehydration; R62.7 Adult failure to thrive; Y92.230 Patient room in hospital as the place of occurrence of the external cause; E87.6 Hypokalemia; M25.552 Pain in left hip; M25.511 Pain in right shoulder; E87.1 Hypo-osmolality and hyponatremia; W18.39XA Other fall on same level, initial encounter; E03.8 Other specified hypothyroidism; R53.1 Weakness; Z20.822 Contact with and (suspected) exposure to COVID-19; Z16.12 Extended spectrum beta lactamase (ESBL) resistance; I11.0 Hypertensive heart disease with heart failure; E83.42 Hypomagnesemia; Y92.89 Other specified places as the place of occurrence of the external cause; Z16.23 Resistance to quinolones and fluoroquinolones; B96.29 Other Escherichia coli [E. coli] as the cause of diseases classified elsewhere; Z16.19 Resistance to other specified beta lactam antibiotics; N39.0 Urinary tract infection, site not specified; R26.89 Other abnormalities of gait and mobility; Z16.11 Resistance to penicillins; Z29.89 Encounter for other specified prophylactic measures; R06.02 Shortness of breath; I50.9 Heart failure, unspecified; R78.81 Bacteremia; R41.82 Altered mental status, unspecified; Z16.29 Resistance to other single specified antibiotic

== ENCOUNTER 2025-03-05 12:33 | Inpatient (IN) ==
--- NOTE | 2025-03-05 12:40 | DR.H&P ---
H&P History & Physical for Day of: H&P Date: 03/05/25 Chief Complaint Chief Complaint: FEVER, WEAKNESS, DYSURIA History of Present Illness History of Present Illness: PT IS 89 WF, ADMITTED FROM [place] WITH FEVER AND PAIN ALL OVER, UTI SYMPTOMS SINCE ONE WEEK AGO PT HAS HAD ROCEPHIN IM X 2 DOSES AND ON PO CEFDINIR WITHOUT IMPROVEMENT. PT WAS SEEN IN ER AT [facility] LAST PMH AND NO LABS WERE TAKEN. PT'S MOST RECENT UTI WITHOUT GROWTH, COLLECTED AFTER TAKING PO AND IM ATBX. PT HAS BEEN IN BED ALL WEEK WITH POOR PO INTAKE AND DEHYDRATION. FAMILY AND NURSING STAFF CONCERNED SHE MAY BE SEPTIC. PT ADMITTED FOR EVALUATION AND TREATMENT OF ACUTE ILLNES Past Medical History Past Medical History: Arthritis, CHF, Dyslipidemia, Hypertension, Hypothyroidism and Kidney Stones Past Surgical History Surgical History: Hysterectomy and Ortho Surgery Family History Family Medical History: CT, Heart Failure and Hypertension Medications Home Medications: Home Medications Medication Instructions Recorded Confirmed Type atorvastatin 10 mg tablet 10 mg PO HS 04/02/24 5 History levocetirizine 5 mg tablet 5 mg PO HS 04/02/24 5 History levothyroxine 75 mcg tablet 75 mcg PO QDAY 04/02/24 History linaclotide 290 mcg capsule 290 mcg PO QDAY 04/02/24 0 03/04/25 History (Osiriszess) meclizine 12.5 mg tablet 12.5 mg PO BID 04/02/2402/21 History meloxicam 7.5 mg tablet 7.5 mg PO BID 04/02/2403/04 History metoprolol succinate 25 mg 25 mg PO HS 04/02/24 History tablet,extended release 24 hr olmesartan 40 1 tab PO QDAY 04/02/2403/04 History mg-hydrochlorothiazide 25 mg tablet potassium chloride 20 mEq 20 meq PO QDAY 06/09/2402/21 History tablet,extended release(part/cryst) cephalexin 500 mg capsule 500 mg PO QID 03/04/2503/04 History hydrocodone 5 mg-acetaminophen 325 2 tab PO BID 03/04/25 History mg tablet Allergies Allergies Allergy/AdvReac Type Severity Reaction Status Date / Time No Known Allergies Allergy Verified 05/14/24 20:26 Review of Systems Constitutional: Fever, Weakness and Malaise Eyes: No Symptoms Reported ENT: No Symptoms Reported Respiratory: No Symptoms Reported Cardiovascular: No Symptoms Reported Gastrointestinal: Nausea Genitourinary: Dysuria and Incontinence Musculoskeletal: Back Pain and Leg Pain Skin: No Symptoms Reported Neurological: No Symptoms Reported Oriented: Normal Eyes: Normal Ear: Normal Nose: Normal Respiratory: RLL Diminished and LLL Diminished Cardiovascular: Normal Auscultation: Bowel Sounds: Decreased Palpation: Normal Tenderness: LLQ, Periumbilical and Mild Skin: Decreased Turgur Musculoskeletal: Back:Thoracic, Back:Lumbar and Motor Deficit Psychiatric: Depression Mood Description: Depressed Speech Pattern: Clear and Appropriate Assessment/Plan (1) Sepsis: Status: Acute Plan: ADMIT, BC AND UC ON ADMISSION CXR, BP CONTROL, LACTIC ACID IV HYDRATION, PRN RESP THERAPY IV ATBX, VERIFY AND RESUME HOME MEDICATIONS (2) Altered mental status: Qualifiers: Altered mental status type: unspecified Qualified Code(s): R41.82 - Altered mental status, unspecified Status: Acute (3) Urinary tract infection: Status: Acute (4) Hypertension: Status: Acute
[2025-03-05] MEDS: ROCEPHIN VIAL 1 GRAM 1 G in NS 100 ML IV 100 ML IV SCH (15:27)
[2025-03-05] MEDS: NS 1,000 ML IV 1,000 ML IV SCH (15:27)
[2025-03-05 16:05] LABS: BASOPHILS % (AUTO) 0.6 % (0.2-1.0); EOSINOPHILS # (AUTO) 0.2 x10^3/uL (0.0-0.2); EOSINOPHILS % (AUTO) 2.9 % (0.9-2.9); HEMATOCRIT 36.3 % (36.0-47.0); HEMOGLOBIN 12.1 g/dL (12.0-16.0); LYMPHOCYTES # (AUTO) 0.9 X10^3/uL (1.3-2.9); MEAN CORPUSCULAR HEMOGLOBIN 28.3 pg (27.0-34.0); MEAN CORPUSCULAR HGB CONC 33.4 g/dL (33.0-35.0); MEAN CORPUSCULAR VOLUME 84.6 fL (80.0-100.0); MEAN PLATELET VOLUME 8.3 fL (7.4-11.0); MONOCYTES # (AUTO) 0.9 x10^3/uL (0.3-0.8); MONOCYTES % (AUTO) 15.5 % (0.0-13.0); NEUTROPHILS # (AUTO) 3.7 x10^3/uL (2.2-4.8); PLATELET COUNT 178 X10^3/uL (150.0-450.0); RED BLOOD COUNT 4.29 X10^6/uL (3.5-5.4); RED CELL DISTRIBUTION WIDTH 14.9 % (11.6-16.5); WHITE BLOOD COUNT 5.7 X10^3/uL (3.6-10.0)
[2025-03-05 16:28] LABS: ALANINE AMINOTRANSFERASE 13 Units/L (12-78); ALBUMIN 2.7 g/dL (3.4-5.0); ALKALINE PHOSPHATASE 85 Units/L (46-116); ASPARTATE AMINO TRANSFERASE 16 Units/L (15-37); BLOOD UREA NITROGEN 31 mg/dL (7-18); CALCIUM 9.6 mg/dL (8.5-10.1); CHLORIDE 100 mmol/L (98-107); COR CA(FOR HYPOALB) 10.6 mg/dL (8.5-10.1); CREATININE 1.26 mg/dL (0.55-1.02); GLUCOSE 99 mg/dL (65-99); POTASSIUM 4.7 mmol/L (3.5-5.1); SODIUM 134 mmol/L (136-145); TOTAL PROTEIN 7.5 g/dL (6.4-8.2); eGFR NON BLACK RACES 42 (>60)
--- NOTE | 2025-03-05 17:10 | RAD ---
EXAM: CHEST, 1 VIEW HISTORY: Shortness of breath COMPARISON: Frontal chest radiograph June 13, 2024 TECHNIQUE: 1 frontal view of the chest FINDINGS: Patchy airspace opacities are present in the left lung base with silhouetting of the hemidiaphragm and blunting of the costophrenic angle. Underlying interstitial lung disease is noted. IMPRESSION: Left lower lobe pneumonia and possible pleural effusion. Follow-up to document clearing is advised. These findings are superimposed on chronic interstitial lung disease/COPD THIS IS AN ELECTRONICALLY VERIFIED FINAL REPORT 03/05/2025 5:06 PM - Electronically signed by Israel Baig MD
[2025-03-05 17:55] VITALS: BMI 20.1
[2025-03-05 22:18] LABS: BILIRUBIN,URINE NEGATIVE (NEGATIVE); BLOOD/HEMOGLOBIN,URINE 2+ (NEGATIVE); GLUCOSE, URINE NEGATIVE (NEGATIVE); KETONES,URINE NEGATIVE (NEGATIVE); LEUKOCYTE ESTERASE ,URINE NEGATIVE (NEGATIVE); NITRITES,URINE NEGATIVE (NEGATIVE); PROTEIN,URINE 1+ (NEGATIVE); UROBILINOGEN,URINE NORMAL (NORMAL)
[2025-03-05 22:31] LABS: APPEARANCE,URINE CLEAR (CLEAR); COLOR,URINE PALE YELLOW (YELLOW)
[2025-03-05 22:32] LABS: BACTERIA,URINE NEGATIVE /HPF (NEGATIVE); RBC,URINE 0-2 /HPF (0-3); SQUAMOUS EPITHELIAL CELL,UR RARE /HPF (NEGATIVE)
[2025-03-06] MEDS: CATAPRES TAB 0.1 MG PO ONE (00:11)
[2025-03-06] MEDS ORDERED: MILK OF MAGNESIA PO PRN (03:05)
[2025-03-06] MEDS ORDERED: COLACE CAP 100 MG PO PRN (03:05)
[2025-03-06 04:55] LABS: BASOPHILS % (AUTO) 0.3 % (0.2-1.0); EOSINOPHILS # (AUTO) 0.1 x10^3/uL (0.0-0.2); EOSINOPHILS % (AUTO) 2.9 % (0.9-2.9); HEMATOCRIT 31.4 % (36.0-47.0); HEMOGLOBIN 10.7 g/dL (12.0-16.0); LYMPHOCYTES # (AUTO) 1.1 X10^3/uL (1.3-2.9); LYMPHOCYTES % (AUTO) 22.1 % (21.0-51.0); MEAN CORPUSCULAR HEMOGLOBIN 28.4 pg (27.0-34.0); MEAN CORPUSCULAR HGB CONC 34.1 g/dL (33.0-35.0); MEAN CORPUSCULAR VOLUME 83.2 fL (80.0-100.0); MEAN PLATELET VOLUME 8.4 fL (7.4-11.0); MONOCYTES # (AUTO) 0.8 x10^3/uL (0.3-0.8); MONOCYTES % (AUTO) 16.9 % (0.0-13.0); NEUTROPHILS # (AUTO) 2.9 x10^3/uL (2.2-4.8); NEUTROPHILS % (AUTO) 57.8 % (42.0-75.0); PLATELET COUNT 172 X10^3/uL (150.0-450.0); RED BLOOD COUNT 3.77 X10^6/uL (3.5-5.4)
[2025-03-06 05:07] LABS: ALANINE AMINOTRANSFERASE 13 Units/L (12-78); ALBUMIN 2.3 g/dL (3.4-5.0); ALKALINE PHOSPHATASE 78 Units/L (46-116); ASPARTATE AMINO TRANSFERASE 13 Units/L (15-37); BLOOD UREA NITROGEN 26 mg/dL (7-18); CALCIUM 9.1 mg/dL (8.5-10.1); CARBON DIOXIDE 24.3 mmol/L (21-32); CHLORIDE 103 mmol/L (98-107); COR CA(FOR HYPOALB) 10.5 mg/dL (8.5-10.1); CREATININE 0.96 mg/dL (0.55-1.02); GLUCOSE 102 mg/dL (65-99); POTASSIUM 4.2 mmol/L (3.5-5.1); SODIUM 138 mmol/L (136-145); TOTAL PROTEIN 6.5 g/dL (6.4-8.2); eGFR NON BLACK RACES 58 (>60)
--- NOTE | 2025-03-06 07:35 | CT ---
EXAM: CT ABDOMEN AND PELVIS WITHOUT CONTRAST HISTORY: CYSTITIS,LOWER ABD PAIN; COMPARISON: None. TECHNIQUE: Axial CT images were obtained through the abdomen and pelvis without contrast. Coronal and sagittal reformatted images were included. All CT scans at this facility use dose modulation, iterative reconstruction, and/or weight based dosing when appropriate to reduce radiation dose to as low as reasonably achievable. FINDINGS: Please note that without the use of intravenous contrast, evaluation of organ parenchyma is limited. In the left lower lobe, there is a 4 cm peripheral subpleural wedge-shaped area of hazy attenuation. Small adjacent left pleural effusion. Simple fluid density cyst in the right hepatic lobe measures 11 cm. Unremarkable gallbladder. No biliary dilatation. Spleen, pancreas, and adrenals are unremarkable. No hydronephrosis or perinephric stranding. Mild aortoiliac atherosclerosis without aneurysm. No abnormally distended or focally thickened bowel loops. Moderate sigmoid colon diverticula without surrounding inflammation. No free peritoneal air or fluid. Unremarkable urinary bladder. Absent uterus. No free pelvic fluid. No acute osseous findings. Mild lumbar spondylosis. Small right inguinal hernia contains fat and a portion of small bowel. IMPRESSION: 1. Small left pleural effusion with peripheral left lower lobe 4 cm subpleural wedge-shaped hazy attenuation. Findings may be infectious but difficult to exclude vascular etiology. 2. No acute findings in the abdomen or pelvis. Noninflamed urinary bladder. No hydronephrosis. THIS IS AN ELECTRONICALLY VERIFIED FINAL REPORT 03/06/2025 7:32 AM - Electronically signed by Archie Ornelas MD
[2025-03-06] MEDS ORDERED: NORCO 5/325 MG TAB PO PRN (09:43)
[2025-03-06] MEDS: SYNTHROID 50 mcg TAB PO SCH (11:11)
[2025-03-06] MEDS: NORCO 5/325 MG TAB PO PRN (11:11)
--- NOTE | 2025-03-06 11:20 | PCM.PROG ---
Progress Note Progress Note for Day of Date of Exam: 03/06/25 Subjective Subjective: Patient seen at bedside, no acute events overnight. She is currently admitted for pneumonia and UTI. She remains on IV antibiotics. Patient's granddaughter also present in the room states that patient has generalized joint pain which has been worsening recently. She takes [place] as needed. Patient has had recurrent admissions for UTI, altered mental status and worsening generalized pain. She has not been eating much. Blood culture and urine culture are negative. Labs/imaging reviewed: - WBC 5 hemoglobin 10.7 potassium 4.2 creatinine 0.96 - Chest x-ray left lower lobe pneumonia, small effusion - Blood cultures negative urine culture negative Plan: Continue current treatment with IV Rocephin, hydration. Replace electrolytes as per protocol. Follow pending cultures. Continue pain medicine as needed. Will add lidocaine patch. Continue other home medications. Monitor a.m. labs and imaging. Past Medical Family Social History Allergies: Allergies No Known Allergies Allergy (Verified 05/14/24 20:26) Vital Signs and I&O's Vital Signs: Vital Signs Temperature 97.5 F Temperature 98.7 F Pulse Rate [Right Brachial] 82 Pulse Rate [Right Brachial] 97 Respiratory Rate 18 Respiratory Rate 18 Respiratory Rate 19 Blood Pressure [Right Arm] 106/74 Blood Pressure [Right Arm] 114/60 Blood Pressure [Right Arm] 119/61 O2 Sat by Pulse Oximetry 100 O2 Sat by Pulse Oximetry 100 Intake and Output: Intake & Output 03/03/25 03/04/25 03/05/25 03/06/25 23:59 23:59 23:59 23:59 Intake Total 403 / 403 418 / 418 Output Total 380 / 380 Balance 403 / 403 38 / 38 Physical Exam Oriented: Normal Eyes: Normal Ear: Normal Nose: Normal Respiratory: Generalized and Diminished Cardiovascular: Normal Auscultation: Bowel Sounds: Normal Palpation: Normal Tenderness: Normal Skin: Decreased Turgur Musculoskeletal: Back:Thoracic, Back:Lumbar and Motor Deficit Psychiatric: Depression Mood Description: Depressed Affect: Normal Speech Pattern: Clear Laboratory and Diagnostics 03/06/25 04:18 03/06/25 04:18 Labs: Laboratory WBC 5.0 X10^3/uL (3.6-10.0) 03/06/25 04:18 RBC 3.77 X10^6/uL (3.5-5.4) 03/06/25 04:18 Hgb 10.7 g/dL (12.0-16.0) L 03/06/25 04:18 Hct 31.4 % (36.0-47.0) L 03/06/25 04:18 MCV 83.2 fL (80.0-100.0) 03/06/25 04:18 MCH 28.4 pg (27.0-34.0) 03/06/25 04:18 MCHC 34.1 g/dL (33.0-35.0) 03/06/25 04:18 RDW 15.0 % (11.6-16.5) 03/06/25 04:18 Plt Count 172 X10^3/uL (150.0-450.0) 03/06/25 04:18 MPV 8.4 fL (7.4-11.0) 03/06/25 04:18 Neut % (Auto) 57.8 % (42.0-75.0) 03/06/25 04:18 Lymph % (Auto) 22.1 % (21.0-51.0) 03/06/25 04:18 [facility] % (Auto) 16.9 % (0.0-13.0) H 03/06/25 04:18 Eos % (Auto) 2.9 % (0.9-2.9) 03/06/25 04:18 Baso % (Auto) 0.3 % (0.2-1.0) 03/06/25 04:18 Neut # (Auto) 2.9 x10^3/uL (2.2-4.8) 03/06/25 04:18 Lymph # (Auto) 1.1 X10^3/uL (1.3-2.9) L 03/06/25 04:18 [facility] # (Auto) 0.8 x10^3/uL (0.3-0.8) 03/06/25 04:18 Eos # (Auto) 0.1 x10^3/uL (0.0-0.2) 03/06/25 04:18 Baso # (Auto) 0.0 X10^3/uL (0.0-0.1) 03/06/25 04:18 Absolute Nucleated RBC 0.1 /100WBC 03/06/25 04:18 Sodium 138 mmol/L (136-145) 03/06/25 04:18 Corrected Sodium TNP 03/06/25 04:18 Potassium 4.2 mmol/L (3.5-5.1) 03/06/25 04:18 Chloride 103 mmol/L (98-107) 03/06/25 04:18 Carbon Dioxide 24.3 mmol/L (21-32) 03/06/25 04:18 BUN 26 mg/dL (7-18) H 03/06/25 04:18 Creatinine 0.96 mg/dL (0.55-1.02) 03/06/25 04:18 Est GFR (MDRD) Af Amer > 60 (>60) 03/06/25 04:18 Est GFR (MDRD) Non-Af 58 (>60) L 03/06/25 04:18 Glucose 102 mg/dL (65-99) H 03/06/25 04:18 Lactic Acid 0.9 mmol/L (0.4-2.0) 03/05/25 15:23 Calcium 9.1 mg/dL (8.5-10.1) 03/06/25 04:18 Corrected Calcium 10.5 mg/dL (8.5-10.1) H 03/06/25 04:18 Total Bilirubin 0.30 mg/dL (0.2-1.0) 03/06/25 04:18 AST 13 Units/L (15-37) L 03/06/25 04:18 ALT 13 Units/L (12-78) 03/06/25 04:18 Alkaline Phosphatase 78 Units/L (46-116) 03/06/25 04:18 Total Protein 6.5 g/dL (6.4-8.2) 03/06/25 04:18 Albumin 2.3 g/dL (3.4-5.0) L 03/06/25 04:18 Globulin 4.2 g/dL (2.5-4.5) 03/06/25 04:18 Albumin/Globulin Ratio 0.5 Ratio (1.1-2.1) L 03/06/25 04:18 Specimen Type Clean catch urine 03/05/25 22:05 Urine Color Pale yellow (YELLOW) 03/05/25 22:05 Urine Appearance Clear (CLEAR) 03/05/25 22:05 Urine pH 5.0 (5.0 - 8.0) 03/05/25 22:05 Ur Specific [place] 1.020 (1.000-1.030) 03/05/25 22:05 Urine Protein 1+ (NEGATIVE) 03/05/25 22:05 Urine Glucose (UA) Negative (NEGATIVE) 03/05/25 22:05 Urine Ketones Negative (NEGATIVE) 03/05/25 22:05 Urine Blood 2+ (NEGATIVE) 03/05/25 22:05 Urine Nitrite Negative (NEGATIVE) 03/05/25 22:05 Urine Bilirubin Negative (NEGATIVE) 03/05/25 22:05 Urine Urobilinogen Normal (NORMAL) 03/05/25 22:05 Ur Leukocyte Esterase Negative (NEGATIVE) 03/05/25 22:05 Urine RBC 0-2 /HPF (0-3) 03/05/25 22:05 Urine WBC 0-2 /HPF (0-5) 03/05/25 22:05 Ur Squamous Epith Cells Rare /HPF (NEGATIVE) 03/05/25 22:05 Urine Bacteria Negative /HPF (NEGATIVE) 03/05/25 22:05 Ur Culture Indicated? 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
[2025-03-06] MEDS: LIDODERM 5% PATCH TD SCH (11:54)
[2025-03-06] MEDS: VOLTAREN 1 % GEL MULTI DOSE TUBE TOP SCH (14:03)
[2025-03-06] MEDS: TOPROL XL PO SCH (20:20)
[2025-03-06] MEDS: LIPITOR TAB 10 MG PO SCH (20:21)
[2025-03-06] MEDS: ZyrTEC TAB 10 MG PO SCH (20:21)
[2025-03-06] MEDS ORDERED: PATIENT'S HOME MEDICATION (Levocetirizine 5 mg tablet) PO SCH (21:00)
[2025-03-07 06:16] LABS: BASOPHILS % (AUTO) 0.8 % (0.2-1.0); EOSINOPHILS # (AUTO) 0.2 x10^3/uL (0.0-0.2); EOSINOPHILS % (AUTO) 5.3 % (0.9-2.9); HEMATOCRIT 29.1 % (36.0-47.0); HEMOGLOBIN 9.9 g/dL (12.0-16.0); LYMPHOCYTES # (AUTO) 1.3 X10^3/uL (1.3-2.9); LYMPHOCYTES % (AUTO) 31.1 % (21.0-51.0); MEAN CORPUSCULAR HEMOGLOBIN 28.5 pg (27.0-34.0); MEAN CORPUSCULAR VOLUME 83.8 fL (80.0-100.0); MEAN PLATELET VOLUME 8.5 fL (7.4-11.0); MONOCYTES # (AUTO) 0.7 x10^3/uL (0.3-0.8); MONOCYTES % (AUTO) 16.2 % (0.0-13.0); NEUTROPHILS # (AUTO) 1.9 x10^3/uL (2.2-4.8); NEUTROPHILS % (AUTO) 46.6 % (42.0-75.0); PLATELET COUNT 170 X10^3/uL (150.0-450.0); RED BLOOD COUNT 3.47 X10^6/uL (3.5-5.4); RED CELL DISTRIBUTION WIDTH 14.9 % (11.6-16.5); WHITE BLOOD COUNT 4.1 X10^3/uL (3.6-10.0)
[2025-03-07 06:32] LABS: ALANINE AMINOTRANSFERASE 12 Units/L (12-78); ALBUMIN 2.1 g/dL (3.4-5.0); ALKALINE PHOSPHATASE 67 Units/L (46-116); ASPARTATE AMINO TRANSFERASE 17 Units/L (15-37); BLOOD UREA NITROGEN 22 mg/dL (7-18); CALCIUM 8.8 mg/dL (8.5-10.1); CARBON DIOXIDE 23.8 mmol/L (21-32); CHLORIDE 107 mmol/L (98-107); COR CA(FOR HYPOALB) 10.3 mg/dL (8.5-10.1); CREATININE 0.95 mg/dL (0.55-1.02); GLUCOSE 89 mg/dL (65-99); POTASSIUM 4.2 mmol/L (3.5-5.1); SODIUM 141 mmol/L (136-145); TOTAL PROTEIN 6.1 g/dL (6.4-8.2); eGFR NON BLACK RACES 59 (>60)
[2025-03-07] MEDS: LINZESS PO SCH (08:20)
[2025-03-07] MEDS ORDERED: ZyrTEC TAB 10 MG PO SCH (09:00)
--- NOTE | 2025-03-07 11:05 | PCM.PROG ---
Progress Note Progress Note for Day of Date of Exam: 03/07/25 Subjective Subjective: Patient seen at bedside, no acute events overnight. She slept well last night. She is currently admitted for pneumonia and UTI. She remains on IV antibiotics. Her pain seems to be better controlled. Patient states lidocaine patch helped her hip pain. Labs/imaging reviewed: - WBC 4.1 hemoglobin 9.9 potassium 4.2 creatinine 0.95 - Chest x-ray left lower lobe pneumonia, small effusion - Blood cultures negative urine culture negative Plan: Continue current treatment with IV Rocephin, hydration. Replace electrolytes as per protocol. Continue pain medicine as needed. Continue lidocaine patch. Continue other home medications. Advised patient to sit up in the recliner today. PT/OT as tolerated. Possible discharge back to [facility] tomorrow. Monitor a.m. labs and imaging. Past Medical Family Social History Allergies: Allergies No Known Allergies Allergy (Verified 05/14/24 20:26) Vital Signs and I&O's Vital Signs: Vital Signs Temperature 97.6 F Temperature 97.6 F Pulse Rate [Right Brachial] 70 Pulse Rate [Right Brachial] 71 Respiratory Rate 19 Respiratory Rate 18 Blood Pressure [Right Arm] 143/69 Blood Pressure [Right Arm] 125/60 Blood Pressure [Right Arm] 123/98 O2 Sat by Pulse Oximetry 98 O2 Sat by Pulse Oximetry 99 Intake and Output: Intake & Output 03/04/25 03/05/25 03/06/25 03/07/25 23:59 23:59 23:59 23:59 Intake Total 403 / 403 953 / 953 1035 / 1035 Output Total 730 / 730 925 / 925 Balance 403 / 403 223 / 223 110 / 110 Physical Exam Oriented: Normal Eyes: Normal Ear: Normal Nose: Normal Respiratory: Generalized and Diminished Cardiovascular: Normal Auscultation: Bowel Sounds: Normal Palpation: Normal Tenderness: Normal Skin: Decreased Turgur Musculoskeletal: Back:Thoracic, Back:Lumbar and Motor Deficit Psychiatric: Depression Mood Description: Depressed Affect: Normal Speech Pattern: Clear and Appropriate Laboratory and Diagnostics 03/07/25 05:20 03/07/25 05:20 Labs: 03/05/25 15:32 Blood Blood Culture - Preliminary 03/05/25 15:23 Blood Blood Culture - Preliminary Laboratory WBC 4.1 X10^3/uL (3.6-10.0) 03/07/25 05:20 RBC 3.47 X10^6/uL (3.5-5.4) L 03/07/25 05:20 Hgb 9.9 g/dL (12.0-16.0) L 03/07/25 05:20 Hct 29.1 % (36.0-47.0) L 03/07/25 05:20 MCV 83.8 fL (80.0-100.0) 03/07/25 05:20 MCH 28.5 pg (27.0-34.0) 03/07/25 05:20 MCHC 34.0 g/dL (33.0-35.0) 03/07/25 05:20 RDW 14.9 % (11.6-16.5) 03/07/25 05:20 Plt Count 170 X10^3/uL (150.0-450.0) 03/07/25 05:20 MPV 8.5 fL (7.4-11.0) 03/07/25 05:20 Neut % (Auto) 46.6 % (42.0-75.0) 03/07/25 05:20 Lymph % (Auto) 31.1 % (21.0-51.0) 03/07/25 05:20 [place] % (Auto) 16.2 % (0.0-13.0) H 03/07/25 05:20 Eos % (Auto) 5.3 % (0.9-2.9) H 03/07/25 05:20 Baso % (Auto) 0.8 % (0.2-1.0) 03/07/25 05:20 Neut # (Auto) 1.9 x10^3/uL (2.2-4.8) L 03/07/25 05:20 Lymph # (Auto) 1.3 X10^3/uL (1.3-2.9) 03/07/25 05:20 [place] # (Auto) 0.7 x10^3/uL (0.3-0.8) 03/07/25 05:20 Eos # (Auto) 0.2 x10^3/uL (0.0-0.2) 03/07/25 05:20 Baso # (Auto) 0.0 X10^3/uL (0.0-0.1) 03/07/25 05:20 Absolute Nucleated RBC 0.1 /100WBC 03/07/25 05:20 Sodium 141 mmol/L (136-145) 03/07/25 05:20 Corrected Sodium TNP 03/07/25 05:20 Potassium 4.2 mmol/L (3.5-5.1) 03/07/25 05:20 Chloride 107 mmol/L (98-107) 03/07/25 05:20 Carbon Dioxide 23.8 mmol/L (21-32) 03/07/25 05:20 BUN 22 mg/dL (7-18) H 03/07/25 05:20 Creatinine 0.95 mg/dL (0.55-1.02) 03/07/25 05:20 Est GFR (MDRD) Af Amer > 60 (>60) 03/07/25 05:20 Est GFR (MDRD) Non-Af 59 (>60) 03/07/25 05:20 Glucose 89 mg/dL (65-99) 03/07/25 05:20 Lactic Acid 0.9 mmol/L (0.4-2.0) 03/05/25 15:23 Calcium 8.8 mg/dL (8.5-10.1) 03/07/25 05:20 Corrected Calcium 10.3 mg/dL (8.5-10.1) H 03/07/25 05:20 Total Bilirubin 0.20 mg/dL (0.2-1.0) 03/07/25 05:20 AST 17 Units/L (15-37) 03/07/25 05:20 ALT 12 Units/L (12-78) 03/07/25 05:20 Alkaline Phosphatase 67 Units/L (46-116) 03/07/25 05:20 Total Protein 6.1 g/dL (6.4-8.2) L 03/07/25 05:20 Albumin 2.1 g/dL (3.4-5.0) L 03/07/25 05:20 Globulin 4.0 g/dL (2.5-4.5) 03/07/25 05:20 Albumin/Globulin Ratio 0.5 Ratio (1.1-2.1) L 03/07/25 05:20 Specimen Type Clean catch urine 03/05/25 22:05 Urine Color Pale yellow (YELLOW) 03/05/25 22:05 Urine Appearance Clear (CLEAR) 03/05/25 22:05 Urine pH 5.0 (5.0 - 8.0) 03/05/25 22:05 Ur Specific [place] 1.020 (1.000-1.030) 03/05/25 22:05 Urine Protein 1+ (NEGATIVE) 03/05/25 22:05 Urine Glucose (UA) Negative (NEGATIVE) 03/05/25 22:05 Urine Ketones Negative (NEGATIVE) 03/05/25 22:05 Urine Blood 2+ (NEGATIVE) 03/05/25 22:05 Urine Nitrite Negative (NEGATIVE) 03/05/25 22:05 Urine Bilirubin Negative (NEGATIVE) 03/05/25 22:05 Urine Urobilinogen Normal (NORMAL) 03/05/25 22:05 Ur Leukocyte Esterase Negative (NEGATIVE) 03/05/25 22:05 Urine RBC 0-2 /HPF (0-3) 03/05/25 22:05 Urine WBC 0-2 /HPF (0-5) 03/05/25 22:05 Ur Squamous Epith Cells Rare /HPF (NEGATIVE) 03/05/25 22:05 Urine Bacteria Negative /HPF (NEGATIVE) 03/05/25 22:05 Ur Culture Indicated? 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
[2025-03-07] MEDS: RESTORIL CAP 15 MG PO PRN (20:10)
[2025-03-08 06:01] LABS: BASOPHILS % (AUTO) 0.7 % (0.2-1.0); EOSINOPHILS # (AUTO) 0.2 x10^3/uL (0.0-0.2); EOSINOPHILS % (AUTO) 5.1 % (0.9-2.9); HEMATOCRIT 29.9 % (36.0-47.0); HEMOGLOBIN 10.3 g/dL (12.0-16.0); LYMPHOCYTES # (AUTO) 1.3 X10^3/uL (1.3-2.9); LYMPHOCYTES % (AUTO) 26.9 % (21.0-51.0); MEAN CORPUSCULAR HEMOGLOBIN 28.7 pg (27.0-34.0); MEAN CORPUSCULAR HGB CONC 34.4 g/dL (33.0-35.0); MEAN CORPUSCULAR VOLUME 83.3 fL (80.0-100.0); MEAN PLATELET VOLUME 8.1 fL (7.4-11.0); MONOCYTES # (AUTO) 0.6 x10^3/uL (0.3-0.8); MONOCYTES % (AUTO) 12.4 % (0.0-13.0); NEUTROPHILS # (AUTO) 2.6 x10^3/uL (2.2-4.8); NEUTROPHILS % (AUTO) 54.9 % (42.0-75.0); PLATELET COUNT 176 X10^3/uL (150.0-450.0); RED BLOOD COUNT 3.59 X10^6/uL (3.5-5.4); RED CELL DISTRIBUTION WIDTH 14.4 % (11.6-16.5); WHITE BLOOD COUNT 4.7 X10^3/uL (3.6-10.0)
[2025-03-08 06:13] LABS: ALANINE AMINOTRANSFERASE 12 Units/L (12-78); ALBUMIN 2.2 g/dL (3.4-5.0); ALKALINE PHOSPHATASE 74 Units/L (46-116); ASPARTATE AMINO TRANSFERASE 15 Units/L (15-37); BLOOD UREA NITROGEN 14 mg/dL (7-18); CARBON DIOXIDE 20.7 mmol/L (21-32); CHLORIDE 108 mmol/L (98-107); COR CA(FOR HYPOALB) 10.4 mg/dL (8.5-10.1); CREATININE 0.84 mg/dL (0.55-1.02); GLUCOSE 92 mg/dL (65-99); POTASSIUM 3.6 mmol/L (3.5-5.1); SODIUM 141 mmol/L (136-145); TOTAL PROTEIN 6.2 g/dL (6.4-8.2); eGFR NON BLACK RACES > 60 (>60)
[2025-03-08] MEDS ORDERED: CONSULT PHARMACY - POTASSIUM & MAGNESIUM XX SCH (07:00)
[2025-03-08] MEDS: K-DUR TAB 20 MEQ PO ONE (08:16)
[2025-03-08] MEDS: XOPENEX 1.25 MG/3 ML NEBULE NEB SCH (09:01)
[2025-03-08] MEDS: PULMICORT NEB TX 0.5 MG NEB SCH (09:02)
[2025-03-08] MEDS ORDERED: PHARMACY CONSULT LTC MEDICATIONS XX SCH (10:00)
--- NOTE | 2025-03-08 10:51 | CT ---
EXAMINATION: BRAIN W/O CON HISTORY: AMS; COMPARISON: CT brain 05/14/2024 TECHNIQUE: Contiguous noncontrast axial CT images of the brain. Images reviewed in the axial imaging plane with reformatted sagittal and coronal images.The above CT scan was done with automated exposure control and the mA and kV was adjusted to obtain quality images according to patient size. FINDINGS: No evidence of acute intracranial hemorrhage, mass effect, or midline shift. Generalized decreased density to the deep white matter adjacent to the lateral ventricles and centrum semiovale regions bilaterally without associated mass effect. Consider chronic ischemic white matter changes from small vessel disease or other cause of gliosis. The ventricles are normal size and shape. The calvarium appears intact. IMPRESSION: No evidence of acute intracranial hemorrhage or mass effect. Probable chronic brain parenchymal changes as described above. Recommend further evaluation with an MRI of the brain if this is of continued clinical concern. THIS IS AN ELECTRONICALLY VERIFIED FINAL REPORT 03/08/2025 10:47 AM - Electronically signed by Adelia Rust MD
[2025-03-08] MEDS: LOVENOX INJ 40 MG SYR SC SCH (11:45)
[2025-03-08] MEDS: NORCO 5/325 MG TAB PO SCH (13:52)
[2025-03-08] MEDS: LOPRESSOR TAB 25 MG PO SCH (13:52)
[2025-03-09 05:00] LABS: BASOPHILS % (AUTO) 0.9 % (0.2-1.0); EOSINOPHILS # (AUTO) 0.2 x10^3/uL (0.0-0.2); EOSINOPHILS % (AUTO) 3.9 % (0.9-2.9); HEMATOCRIT 27.7 % (36.0-47.0); HEMOGLOBIN 9.4 g/dL (12.0-16.0); LYMPHOCYTES # (AUTO) 1.3 X10^3/uL (1.3-2.9); LYMPHOCYTES % (AUTO) 30.9 % (21.0-51.0); MEAN CORPUSCULAR HEMOGLOBIN 28.4 pg (27.0-34.0); MEAN CORPUSCULAR HGB CONC 34.2 g/dL (33.0-35.0); MEAN CORPUSCULAR VOLUME 83.1 fL (80.0-100.0); MEAN PLATELET VOLUME 7.7 fL (7.4-11.0); MONOCYTES # (AUTO) 0.6 x10^3/uL (0.3-0.8); NEUTROPHILS # (AUTO) 2.1 x10^3/uL (2.2-4.8); NEUTROPHILS % (AUTO) 50.3 % (42.0-75.0); PLATELET COUNT 187 X10^3/uL (150.0-450.0); RED BLOOD COUNT 3.33 X10^6/uL (3.5-5.4); RED CELL DISTRIBUTION WIDTH 14.8 % (11.6-16.5); WHITE BLOOD COUNT 4.1 X10^3/uL (3.6-10.0)
[2025-03-09 05:10] LABS: ALANINE AMINOTRANSFERASE 13 Units/L (12-78); ALBUMIN 2.1 g/dL (3.4-5.0); ALKALINE PHOSPHATASE 70 Units/L (46-116); ASPARTATE AMINO TRANSFERASE 12 Units/L (15-37); BLOOD UREA NITROGEN 15 mg/dL (7-18); CALCIUM 8.6 mg/dL (8.5-10.1); CARBON DIOXIDE 23.7 mmol/L (21-32); CHLORIDE 109 mmol/L (98-107); COR CA(FOR HYPOALB) 10.1 mg/dL (8.5-10.1); GLUCOSE 95 mg/dL (65-99); MAGNESIUM 1.4 mg/dL (2.0-2.9); POTASSIUM 3.7 mmol/L (3.5-5.1); SODIUM 141 mmol/L (136-145); TOTAL PROTEIN 5.9 g/dL (6.4-8.2); eGFR NON BLACK RACES > 60 (>60)
[2025-03-09] MEDS ORDERED: CONSULT PHARMACY - POTASSIUM & MAGNESIUM XX SCH (06:00)
--- NOTE | 2025-03-09 07:46 | RAD ---
EXAM: CHEST, 1 VIEW HISTORY: pneumonia; COMPARISON: Prior study or studies were utilized for comparison during interpretation with the most relevant dated 03/05/2025 TECHNIQUE: CHEST, 1 VIEW FINDINGS: Chest: Lines and tubes: Cardiac leads overlie the chest. Mediastinum: Cardiac and mediastinal shadow is within normal limits for size and contour. Pulmonary vessels: No pulmonary vascular congestion. Lung long: No suspicious airspace opacity. Pleura: There is blunting of the left costophrenic angle. No pneumothorax. Bones and soft tissues: No acute osseous or soft tissue abnormality. IMPRESSION: 1. No acute cardiopulmonary abnormality THIS IS AN ELECTRONICALLY VERIFIED FINAL REPORT 03/09/2025 7:33 AM - Electronically signed by Pieter Oliver MD
[2025-03-09 08:04] VITALS: BP 131/65; RESP 21; TEMP 97.6
[2025-03-09 08:47] VITALS: PULSE 73; O2SAT 100
[2025-03-09] MEDS: MAG-OX TAB PO SCH (08:57)
[2025-03-09] MEDS: K-DUR TAB 20 MEQ PO SCH (08:57)
== END 2025-03-09 10:40 | DRG 194 ==
LOC: MED/SURG → OBSVTOIN 14:37
PROVIDERS: ADMIT Internal Medicine; ATTEND Internal Medicine
DX: N39.0 Urinary tract infection, site not specified; Z86.16 Personal history of COVID-19; E86.0 Dehydration; R62.7 Adult failure to thrive; E78.5 Hyperlipidemia, unspecified; E87.1 Hypo-osmolality and hyponatremia; R10.84 Generalized abdominal pain; E83.42 Hypomagnesemia; M51.370 Other intervertebral disc degeneration, lumbosacral region with discogenic back pain only; I10 Essential (primary) hypertension; R50.9 Fever, unspecified; M19.90 Unspecified osteoarthritis, unspecified site; M16.0 Bilateral primary osteoarthritis of hip; J18.8 Other pneumonia, unspecified organism; J90 Pleural effusion, not elsewhere classified; R26.89 Other abnormalities of gait and mobility; R41.82 Altered mental status, unspecified; R53.1 Weakness; E03.8 Other specified hypothyroidism; R06.02 Shortness of breath